=== PATIENT | male | born 1950 | race Caucasian/White ===

== ENCOUNTER 2020-10-28 10:11 | Emergency (ER) | payer MEDICARE, SELFPAY ==
--- NOTE | ~2020-10-28 | CT_ITS ---
EXAMINATION: CT CERVICAL SPINE WITHOUT CONTRAST CLINICAL INFORMATION: Fall COMPARISON: MRI of February 22, 2008 TECHNIQUE: CT cervical spine with coronal and sagittal reconstructions This CT examination was performed using dose optimization techniques as appropriate, variously including the following: *Automated exposure control *Adjustment of mA and/or kV according to patient size (this includes techniques or standardized protocols for targeted exams where dose is matched to indication/reason for exam; i.e. extremities or head) *Use of iterative reconstruction technique DLP: 543.66 mGy-cm FINDINGS: No abnormal prevertebral soft tissue swelling is seen. No acute cervical spine fracture is noted. There is severe disc space narrowing seen C5-C7 with what may be some degree of fusion. Marginal spurring is present. There is also some disc space narrowing seen right laterally at the C3-C4 and C4-C5 levels There is bilateral facet arthropathy seen with spurring and sclerosis C2-C7 bilaterally. There is some bilateral neural foraminal encroachment seen anteriorly from spurring of the joints of [place] and posteriorly from facet degenerative change at the C5-C6 and C6-C7 levels bilaterally. Temporomandibular joints appear unremarkable. Pterygoid plates intact. CT/CT cervical spine wo con IMPRESSION: No acute cervical spine fracture. Significant cervical spondylosis as described.
--- NOTE | ~2020-10-28 | CT_ITS ---
EXAMINATION: CT HEAD WITHOUT CONTRAST CLINICAL INFORMATION: Weakness for a couple of days. COMPARISON: CT head 01/04/2019, 12/16/2012. Brain MRI of 07/21/2015. TECHNIQUE: Contiguous axial imaging was performed from the skull base to vertex without intravenous administration of contrast. This CT examination was performed using dose optimization techniques as appropriate, variously including the following: *Automated exposure control *Adjustment of mA and/or kV according to patient size (this includes techniques or standardized protocols for targeted exams where dose is matched to indication/reason for exam; i.e. extremities or head) *Use of iterative reconstruction technique DLP: 753.16 mGy-cm. FINDINGS: There is no evidence of acute intracranial hemorrhage or territorial infarction. No abnormal mass effect or midline shift is seen. [place] to white matter differentiation is well preserved. No extra-axial fluid collections are identified. There is mild to moderate global volume loss with proportionate dilatation of the ventricles and cortical sulci. Mild periventricular white matter patchy low-attenuation changes are noted, likely reflecting sequela of chronic microangiopathy. The osseous calvarium is intact. Calvarial soft tissues are grossly unremarkable. The visualized paranasal sinuses are well-aerated except for mild mucosal thickening in the frontal sinuses and left-sided maxillary sinus. Cerumen is noted in the bilateral external auditory canals, right greater than left. Mastoid air cells and middle ear cavities are well-aerated. Chronic deformity of the medial wall of the left orbit is redemonstrated. CT/CT head/brain wo con IMPRESSION: No acute intracranial abnormality, specifically there is no evidence of acute intracranial hemorrhage or acute territorial infarction. Mild white matter changes of chronic microangiopathy.
--- NOTE | ~2020-10-28 | XR_ITS ---
EXAMINATION: XR CHEST CLINICAL INFORMATION: Question pneumonia. Weakness COMPARISON: January 04, 2019 TECHNIQUE: AP portable view of the chest was obtained. FINDINGS: There is a patchy region of disease seen within the lower left chest. This also question of patchy density within the mid left chest peripherally. No pneumothorax or pleural effusion. Heart normal size. No evidence of pulmonary edema. XR/XR chest 1V IMPRESSION: Small focus of density left lower lung which may be related to atelectasis or pneumonitis.
--- NOTE | 2020-10-28 10:22 | ECG_ITS ---
Test Reason : FALL Blood Pressure : / mmHG Vent. Rate : 077 BPM Atrial Rate : 077 BPM P-R Int : 144 ms QRS Dur : 096 ms QT Int : 396 ms P-R-T Axes : 079 043 120 degrees QTc Int : 448 ms Normal sinus rhythm Possible Left atrial enlargement Nonspecific ST and T wave abnormality Abnormal ECG When compared with ECG of 04-JAN-2019 16:48, No significant change was found Referred By: Jason Vallejo Electronically Signed By:SERVANDO FLORES MD
[2020-10-28 10:24] VITALS: BP 126/51; BP 160/74; PULSE 80; PULSE 81; RESP 18; TEMP 36.7; O2SAT 95; BMI 29.4
--- NOTE | 2020-10-28 10:29 | PC.NURSE ---
PT INCONTINENT OF LARGE AMT OF STOOL
--- NOTE | 2020-10-28 10:35 | ED_ITS ---
HPI - Fall General Chief Complaint: Fall Stated Complaint: weakness/fall Time Seen by Provider: 10/28/20 10:46 Source: patient Mode of arrival: ambulatory Limitations: no limitations History of Present Illness HPI Narrative: Patient presents to ED for fall. Patient states this morning he rolled out of bed and fell onto the ground. Patient states he rolled the bed by accident. States no physical complaints. Denies any loss of consciousness. Patient denies any headache, neck pain, chest pain, shortness of breath, abdominal pain, hip pain, leg pain, back pain, rectal bleeding, vomiting blood. As per EMS wanted patient to be evaluated due to patient feeling fatigue the past 4 days. History of history of [place] and 2 strokes. Related Data Previous Rx's Medication Instructions Recorded amoxicillin-pot clavulanate 1 tab PO Q12H 7 Days #14 tab 10/28/20 [Augmentin] azithromycin See Rx Instructions .ROUTE 10/28/20 .COMPLEX #6 tab Allergies Allergy/AdvReac Type Severity Reaction Status Date / Time No Known Allergies Allergy Verified 10/28/20 10:23 [No Known Allergies*] Review of Systems Review of Systems: Yes all other systems are reviewed and are negative Constitutional: Constitutional: Reports as per HPI, Reports no additional constitutional complaints and Reports fatigue Eyes: Eyes: Reports as per HPI and Reports no additional eye complaints ENT: Reports system reviewed and no additional complaints, except as documented and Reports as per HPI Cardiovascular: Cardiovascular: Reports as per HPI, Reports no additional cardiovascular complaints, Denies chest pain, Denies dyspnea and Denies dyspnea on exertion Respiratory: Respiratory: Reports no additional respiratory complaints, Denies cough, Denies dyspnea and Denies dyspnea on exertion Gastrointestinal: Gastrointestinal: Reports as per HPI, Reports no additional gastrointestinal complaints, Denies abdominal pain, Denies melena, Denies bloating, Denies hematochezia, Denies diarrhea, Denies nausea, Denies vomiting and Denies hematemesis Genitourinary: Genitourinary: Reports no additional male genitourinary complaints and Reports as per HPI Musculoskeletal: Musculoskeletal: Reports no additional musculoskeletal c omplaints and Reports as per HPI Neurologic: Reports system reviewed and no additional complaints, except as documented and Reports as per HPI Psychiatric: Psychiatric: Reports no additional psychiatric complaints and Reports as per HPI Endocrine: Endocrine: Reports fatigue [facility] Past Medical History Medical History (Updated 10/28/20 @ 16:00 by ROMIE Hankins) CVA (cerebral vascular accident) Dementia HTN (hypertension) Hyperlipidemia Myocardial infarct, old NIDDY (non-insulin dependent diabetes mellitus in young) Social History Social History Alcohol intake: never Smoked in Last 30 Days: No Use of substances other than those prescribed or required for medical reasons: No Advance Directives: No Advance Directives Information Provided: No Physical Exam Vital Signs: Vital Signs: Last Vital Signs Temp 98.1 F 10/28/20 15:26 Pulse 78 10/28/20 15:26 Resp 18 10/28/20 15: BP 167/77 H 10/28/20 15: Pulse Ox 96 10/28/20 15: Body Mass Index 29.4 Const: General: cooperative, healthy appearing, comfortable, no acute distress, well developed, alert, awake and Physically active Orientation/consciousness: patient oriented x3 HENMT: Head: Yes normal to inspection, Yes No palpable skull fracture present, Yes normocephalic, Yes atraumatic and No abrasion Ears: hearing grossly normal bilaterally, external ears normal and TM's normal bilaterally Eyes: General: appearance normal, both eyes and all related structures Neck: Neck: Yes normal visual inspection, Yes full ROM, Yes no lymphadenopathy, Yes no meningeal signs, Yes trachea midline, Yes supple and No tender Chest: Chest palpation & inspection: normal inspection of the chest and normal palpation of entire chest wall Resp: Effort & Inspection: normal respiratory effort and able to speak in complete sentences Auscultation: clear to auscultation bilaterally Cardio: Jugular venous distension: no JVD Heart sounds: S1 normal heart sound present and S2 normal heart sound present GI: Inspection: Yes normal to inspection and No abdominal wall ecchymosis Palpation (GI): Soft to palpation, not firm, nontender, no guarding and not rigid : General: No CVA tenderness and Yes no CVA tenderness Back/Spine/Pelvis: Back: no CVA tenderness, No CVA tenderness and No back te nderness Skin: General skin exam: no rashes or lesions noted and elasticity normal Neuro: Other: Negative for slurred speech. Negative for facial droop. Negative pronator drift. All extremities equal strength 5+. Patient is at baseline mentally. Negative for any neuro deficits. General: patient oriented x3, no meningeal signs and CN's II-XI intact bilaterally Extrem: General: Yes normal to inspection and Yes full ROM Psych: Appearance: grossly normal, well kempt and not disheveled Course Course Course Narrative: Patient presently does not have any physical complaints, but due to being concern for fatigue patient will have medical evaluation to make sure there was no [place], or signs of infection just like pneumonia or UA. Negative for any neuro deficit. Will send patient for head CT C-spine due to fall. Patient given fluids Reevaluation(s) Reevaluation #1: Patient denies any distress. Patient is at baseline mentally. Chest x-ray shows lower lobe pneumonia. Presently no indication for admission. Curb Score 0. Labs are baseline. EKG negative for STEMI. Head CT and cervical spine negative for brain bleed or neck fracture. Troponin 20. Repeat troponin make sure there was not cardiac event. Reevaluation #2: Patient's troponin did not increased by 50%. Patient is safe for discharge. No need for admission. MDM - Fall MDM Narrative Medical decision making narrative: Pneumonia. Lab Data Result diagrams: 10/28/20 11:05 10/28/20 11:05 Labs: Lab Results 10/28/20 10/28/20 10/28/20 Range/Units 11:05 11:05 11:05 WBC 10.0 (4.8-10.8) X10*3/uL RBC 4.45 L (4.60-5.80) X10*6/uL Hgb 12.9 L (14.0-18.0) g/dl Hct 38.1 L (42-52) % MCV 85.6 (80-98) fL MCH 29.0 (27.0-33.0) pg MCHC 33.9 (31.0-36.0) g/dl RDW 15.7 (11.0-16.0) % Plt Count 118 L (160-400) X10*3/uL MPV 11.0 (9.4-12.4) fL Immature Gran % (Auto) 0.6 H (0.0-0.4) % Neut % (Auto) 87.0 H (45-73) % Lymph % (Auto) 5.5 L (20-40) % [place] % (Auto) 5.1 (2-11) % Eos % (Auto) 1.5 (0-4) % Baso % (Auto) 0.3 (0-2) % Lymph # (Auto) 0.6 L (1.2-4.9) X10*3/uL [place] # (Auto) 0.5 (0.1-1.2) X10*3/uL Eos # (Auto) 0.2 (0.0-0.4) X10*3/uL Baso # (Auto) 0.0 (0.0-0.2) X10*3/uL Abs Immat Gran (auto) 0.06 H (0.00-0.03) X10*3/uL Absolute Neuts (auto) 8.7 H (2.0-8.3) X10*3/uL Absolute Nucleated RBC 0.000 (0.0-0.012) X10*3/uL Nucleated RBC % (auto) 0.0 (0.0-0.2) /100WBC Smear Tech's Comments VERIFIED PT (10.8-13.0) SEC INR (0.9-1.1) APTT (24.1-38.0) SEC Sodium 138 (135-145) mmol/L Potassium 4.0 (3.3-5.1) mmol/L Chloride 101 (96-108) mmol/L Carbon Dioxide 29 (22-29) mmol/L Anion Gap 12 (12-20) BUN 12 (9-16) mg/dL Creatinine 0.72 (0.5-1.4) mg/dL Estim Creat Clear Calc 109.3 Estimated GFR > 60 Random Glucose 118 H (60-115) mg/dL Calcium 9.1 (8.4-10.2) mg/dL Magnesium 1.7 (1.6-2.6) mg/dL Total Bilirubin 1.3 H (0.0-1.0) mg/dL AST 13 (5-37) U/L ALT 9 (0-40) U/L Alkaline Phosphatase 91 (39-117) U/L Total Creatine Kinase 87 (38-174) U/L Troponin I High Sens 20.2 (<3.5-35.0) ng/L Total Protein 6.1 L (6.5-8.0) g/dL Albumin 3.8 (3.5-5.0) g/dL Urine Color Urine Appearance Urine pH (5.0-8.0) Ur Specific [place] (1.005-1.025) Urine Protein (NEG-TRACE) MG/DL Urine Glucose (UA) (NEG) MG/DL Urine Ketones (NEG) MG/DL Urine Blood (NEG) Urine Nitrite (NEG) Ur Leukocyte Esterase (NEG) COVID-19 (RICA) (Negative) COVID-19 Clin Com 10/28/20 10/28/20 10/28/20 Range/Units 11:05 11:53 13:55 WBC (4.8-10.8) X10*3/uL RBC (4.60-5.80) X10*6/uL Hgb (14.0-18.0) g/dl Hct (42-52) % MCV (80-98) fL MCH (27.0-33.0) pg MCHC (31.0-36.0) g/dl RDW (11.0-16.0) % Plt Count (160-400) X10*3/uL MPV (9.4-12.4) fL Immature Gran % (Auto) (0.0-0.4) % Neut % (Auto) (45-73) % Lymph % (Auto) (20-40) % [place] % (Auto) (2-11) % Eos % (Auto) (0-4) % Baso % (Auto) (0-2) % Lymph # (Auto) (1.2-4.9) X10*3/uL [place] # (Auto) (0.1-1.2) X10*3/uL Eos # (Auto) (0.0-0.4) X10*3/uL Baso # (Auto) (0.0-0.2) X10*3/uL Abs Immat Gran (auto) (0.00-0.03) X10*3/uL Absolute Neuts (auto) (2.0-8.3) X10*3/uL Absolute Nucleated RBC (0.0-0.012) X10*3/uL Nucleated RBC % (auto) (0.0-0.2) /100WBC Smear Tech's Comments PT 13.4 H (10.8-13.0) SEC INR 1.1 (0.9-1.1) APTT 34.0 (24.1-38.0) SEC Sodium (135-145) mmol/L Potassium (3.3-5.1) mmol/L Chloride (96-108) mmol/L Carbon Dioxide (22-29) mmol/L Anion Gap (12-20) BUN (9-16) mg/dL Creatinine (0.5-1.4) mg/dL Estim Creat Clear Calc Estimated GFR Random Glucose (60-115) mg/dL Calcium (8.4-10.2) mg/dL Magnesium (1.6-2.6) mg/dL Total Bilirubin (0.0-1.0) mg/dL AST (5-37) U/L ALT (0-40) U/L Alkaline Phosphatase (39-117) U/L Total Creatine Kinase (38-174) U/L Troponin I High Sens (<3.5-35.0) ng/L Total Protein (6.5-8.0) g/dL Albumin (3.5-5.0) g/dL Urine Color DARK YELLOW Urine Appearance CLEAR Urine pH 6.0 (5.0-8.0) Ur Specific [place] 1.020 (1.005-1.025) Urine Protein NEG (NEG-TRACE) MG/DL Urine Glucose (UA) NEG (NEG) MG/DL Urine Ketones 5 (NEG) MG/DL Urine Blood NEG (NEG) Urine Nitrite NEG (NEG) Ur Leukocyte Esterase NEG (NEG) COVID-19 (RICA) Negative (Negative) COVID-19 Clin Com See Note 10/28/20 Range/Units 14:06 WBC (4.8-10.8) X10*3/uL RBC (4.60-5.80) X10*6/uL Hgb (14.0-18.0) g/dl Hct (42-52) % MCV (80-98) fL MCH (27.0-33.0) pg MCHC (31.0-36.0) g/dl RDW (11.0-16.0) % Plt Count (160-400) X10*3/uL MPV (9.4-12.4) fL Immature Gran % (Auto) (0.0-0.4) % Neut % (Auto) (45-73) % Lymph % (Auto) (20-40) % [place] % (Auto) (2-11) % Eos % (Auto) (0-4) % Baso % (Auto) (0-2) % Lymph # (Auto) (1.2-4.9) X10*3/uL [place] # (Auto) (0.1-1.2) X10*3/uL Eos # (Auto) (0.0-0.4) X10*3/uL Baso # (Auto) (0.0-0.2) X10*3/uL Abs Immat Gran (auto) (0.00-0.03) X10*3/uL Absolute Neuts (auto) (2.0-8.3) X10*3/uL Absolute Nucleated RBC (0.0-0.012) X10*3/uL Nucleated RBC % (auto) (0.0-0.2) /100WBC Smear Tech's Comments PT (10.8-13.0) SEC INR (0.9-1.1) APTT (24.1-38.0) SEC Sodium (135-145) mmol/L Potassium (3.3-5.1) mmol/L Chloride (96-108) mmol/L Carbon Dioxide (22-29) mmol/L Anion Gap (12-20) BUN (9-16) mg/dL Creatinine (0.5-1.4) mg/dL Estim Creat Clear Calc Estimated GFR Random Glucose (60-115) mg/dL Calcium (8.4-10.2) mg/dL Magnesium (1.6-2.6) mg/dL Total Bilirubin (0.0-1.0) mg/dL AST (5-37) U/L ALT (0-40) U/L Alkaline Phosphatase (39-117) U/L Total Creatine Kinase (38-174) U/L Troponin I High Sens 16.4 (<3.5-35.0) ng/L Total Protein (6.5-8.0) g/dL Albumin (3.5-5.0) g/dL Urine Color Urine Appearance Urine pH (5.0-8.0) Ur Specific [place] (1.005-1.025) Urine Protein (NEG-TRACE) MG/DL Urine Glucose (UA) (NEG) MG/DL Urine Ketones (NEG) MG/DL Urine Blood (NEG) Urine Nitrite (NEG) Ur Leukocyte Esterase (NEG) COVID-19 (RICA) (Negative) COVID-19 Clin Com ECG Data Interpretation: Normal sinus rhythm. Negative STEMI. Ventricular rate 77. Peer interval 144. QRS 96. QTC 448. Discharge Plan Discharge Clinical Impression: Pneumonia Patient Disposition: Home, Self-Care Instructions: Bacterial Pneumonia (ED) Additional Instructions: Return to the ED for any altered mental status, chest pain, shortness of breath, coughing up blood, weakness, intractable fever, chills, or any other concerning symptoms. Neural get EKG came back negative for heart attack. Urine negative f or infection. Rest your labs came back to baseline. Normal kidney function. Chest x-ray shows pneumonia. Prescriptions: New amoxicillin-pot clavulanate [Augmentin] 875-125 mg tablet 1 tab PO Q12H 7 Days Qty: 14 RF: 0 azithromycin 500 mg tablet See Rx Instructions .ROUTE .COMPLEX Qty: 6 RF: 0 Referrals: Jp Chan MD [Primary Care Provider] - 2 days (pneumonia?)
[2020-10-28] MEDS: 0.9 % Sodium Chloride 1,000 ML 999 ML IV (11:07)
[2020-10-28 11:23] LABS: Basophils Percent Auto 0.3 % (0-2); Eosinophils Absolute Auto 0.2 X10*3/uL (0.0-0.4); Eosinophils Percent Auto 1.5 % (0-4); Hematocrit 38.1 % (42-52); Hemoglobin 12.9 g/dl (14.0-18.0); Imm Gran Abs Auto 0.06 X10*3/uL (0.00-0.03); Imm Gran Pct Auto 0.6 % (0.0-0.4); Lymphocytes Absolute Auto 0.6 X10*3/uL (1.2-4.9); Lymphocytes Percent Auto 5.5 % (20-40); MANUAL DIFF FLAG SCAN; Mean Corpuscular HGB Conc 33.9 g/dl (31.0-36.0); Mean Corpuscular Volume 85.6 fL (80-98); Monocytes Absolute Auto 0.5 X10*3/uL (0.1-1.2); Monocytes Percent Auto 5.1 % (2-11); Neutrophils Absolute Auto 8.7 X10*3/uL (2.0-8.3); Platelet Count 118 X10*3/uL (160-400); Red Blood Count 4.45 X10*6/uL (4.60-5.80); Red Cell Distribution Width 15.7 % (11.0-16.0); SCAN SMEAR FLAG 1
--- NOTE | 2020-10-28 11:32 | PC.NURSE ---
patient a&o to baseline, iv inserted, labs drawn, ekg performed, cardic monitor applied nsr 70s, will continue to monitor.
[2020-10-28 11:33] LABS: COVID-19 Test Negative (Negative)
[2020-10-28 11:39] LABS: SLIDE REVIEW VERIFIED
[2020-10-28 11:43] LABS: Alanine Aminotransferase 9 U/L (0-40); Albumin Level 3.8 g/dL (3.5-5.0); Alkaline Phosphatase 91 U/L (39-117); Anion Gap 12 (12-20); Aspartate Amino Transferase 13 U/L (5-37); Bilirubin Total 1.3 mg/dL (0.0-1.0); Blood Urea Nitrogen 12 mg/dL (9-16); Calcium 9.1 mg/dL (8.4-10.2); Carbon Dioxide 29 mmol/L (22-29); Chloride 101 mmol/L (96-108); Creatinine Clr Calc Pharmacy 109.3; Estimated Glomerular Filt Rate > 60; Glucose Random 118 mg/dL (60-115); Magnesium 1.7 mg/dL (1.6-2.6); Sodium 138 mmol/L (135-145); Total Protein 6.1 g/dL (6.5-8.0)
[2020-10-28 11:44] LABS: Troponin-I High Sensitivity 20.2 ng/L (<3.5-35.0)
[2020-10-28 12:08] LABS: INTERNATIONAL NORM RATIO 1.1 (0.9-1.1); Prothrombin Time 13.4 SEC (10.8-13.0)
[2020-10-28 13:06] VITALS: BP 155/71; PULSE 73; RESP 24; TEMP 36.7; O2SAT 96
--- NOTE | 2020-10-28 13:50 | PC.NURSE ---
patients IVF continue to run slowly- pt educated to leave arm straight to infuse fluids quicker, tech to perform straight cath for urine
[2020-10-28 14:06] LABS: Appearance Urine CLEAR; Color Urine DARK YELLOW; Glucose Urine UA NEG (NEG); Leukocyte Esterase Urine NEG (NEG); Nitrite Urine NEG (NEG); Urine Blood NEG (NEG); Urine Ketones 5 MG/DL (NEG); Urine Protein NEG (NEG-TRACE)
[2020-10-28 14:42] LABS: Troponin-I High Sensitivity 16.4 ng/L (<3.5-35.0)
[2020-10-28 15:26] VITALS: BP 167/77; PULSE 78; RESP 18; TEMP 36.7; O2SAT 96
--- NOTE | 2020-10-28 15:27 | PC.NURSE ---
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
--- NOTE | 2020-10-28 16:31 | PC.NURSE ---
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
[2020-10-28] MEDS: Azithromycin 500 MG TABLET PO (17:07)
[2020-10-28] MEDS: Amoxicillin/Potassium Clav 875 MG TABLET PO (17:07)
== END 2020-10-28 17:10 | disposition home or self-care (01) ==
PROVIDERS: Physician Assistant; Emergency Provider Emergency Medicine; PCP Internal Medicine
DX: J18.9 Pneumonia, unspecified organism (principal); Z20.822 Contact with and (suspected) exposure to COVID-19; R53.1 Weakness; I10 Essential (primary) hypertension; E11.9 Type 2 diabetes mellitus without complications; E78.5 Hyperlipidemia, unspecified; I25.2 Old myocardial infarction; Z86.73 Personal history of transient ischemic attack (TIA), and cerebral infarction without residual deficits
CPT/HCPCS: 36415; 51701; 70450; 71045; 72125; 80053; 81003; 82550; 83735; 84484; 85025; 85610; 85730; 87635; 93005; 96360; 99284

== ENCOUNTER 2020-11-05 11:05 | Outpatient (REF) | payer MEDICARE, SELFPAY ==
--- NOTE | ~2020-11-05 | XR_ITS ---
EXAMINATION: XR CHEST CLINICAL INFORMATION: Pneumonia COMPARISON: Previous chest x-ray October 2020 TECHNIQUE: 2 views of the chest were obtained. FINDINGS: The cardiac and mediastinal contours are normal. The lungs are clear without evidence of pneumonia. There is no pleural effusion or pneumothorax. There are mild degenerative changes of the spine. XR/XR chest 2V IMPRESSION: No evidence of pneumonia.
== END 2020-11-05 11:06 | disposition home or self-care (01) ==
LOC: HO.XRAY 11:05
PROVIDERS: PCP Internal Medicine; Visit Provider Internal Medicine
DX: J18.9 Pneumonia, unspecified organism (principal)
CPT/HCPCS: 71046

== ENCOUNTER 2020-11-27 02:51 | Inpatient (IN) | payer MEDICARE, SELFPAY ==
[2020-11-27] VITALS (19 sets, daily range): BP systolic 114–176; BP diastolic 51–87; PULSE 76–111; RESP 14–40; TEMP 34.4–40.2; O2SAT 96–99; BMI 31.3; BMI 32.0
--- NOTE | ~2020-11-27 | XR_ITS ---
EXAMINATION: XR CHEST CLINICAL INFORMATION: Fever COMPARISON: 11/05/2020 TECHNIQUE: Frontal view of the chest was obtained. FINDINGS: Cardiac leads overlie the chest. The lungs are well expanded. There is no edema or effusion. Retrocardiac opacity noted.. No pneumothorax. The cardiomediastinal silhouette is within normal limits. No acute osseous abnormality. XR/XR chest 1V IMPRESSION: Retrocardiac opacity could represent atelectasis or pneumonia.
--- NOTE | ~2020-11-27 | CT_ITS ---
EXAMINATION: CT CHEST WITHOUT CONTRAST CLINICAL INFORMATION: Shortness of breath. Cough. COMPARISON: Radiograph from 11/05/2020. CT 12/20/2014 TECHNIQUE: Multidetector volumetric CT imaging of the chest was done. Axial MIP volume rendering provided. Sagittal and coronal reformatted images were obtained. This CT examination was performed using dose optimization techniques as appropriate, variously including the following: *Automated exposure control *Adjustment of mA and/or kV according to patient size (this includes techniques or standardized protocols for targeted exams where dose is matched to indication/reason for exam; i.e. extremities or head) *Use of iterative reconstruction technique DLP: 551 mGy-cm FINDINGS: LUNGS: The central airways are patent. Motion on the study limits evaluation of the lung parenchyma. There is no consolidation. No pulmonary mass. No definite nodules identified. No pneumothorax. MEDIASTINUM: Normal heart size. Coronary artery calcifications are present. No pericardial effusion. No mediastinal lymphadenopathy. PLEURA: There is no pleural effusion. No pleural mass or thickening. AXILLA: No lymphadenopathy. UPPER ABDOMEN: Surgical clips noted along the gallbladder. No acute abnormality in the visualized upper abdomen. OSSEOUS STRUCTURES: No acute or suspicious osseous abnormality. Degenerative changes noted in the spine. Degenerative changes of both glenohumeral joints. CT/CT chest wo con IMPRESSION: No acute pulmonary finding. No consolidation.
--- NOTE | ~2020-11-27 | CT_ITS ---
EXAMINATION: CT HEAD WITHOUT CONTRAST CLINICAL INFORMATION: Stroke protocol COMPARISON: 10/28/2020 TECHNIQUE: Contiguous axial imaging was performed from the skull base to vertex without intravenous contrast. This CT examination was performed using dose optimization techniques as appropriate, variously including the following: * Automated exposure control * Adjustment of mA and/or kV according to patient size (this includes techniques or standardized protocols for targeted exams where dose is matched to indication/reason for exam; i.e. extremities or head) Use of iterative reconstruction technique DLP: 885 mGy-cm. FINDINGS: There is no evidence of acute intracranial hemorrhage or territorial infarction. No abnormal mass effect or midline shift is seen. [place] to white matter differentiation is well preserved. No extra-axial fluid collections are identified. No hydrocephalus. Proportional prominence of the ventricles and sulcal spaces is consistent with mild volume loss. Patchy periventricular and deep white matter hypoattenuation is consistent with mild small vessel ischemic changes. No acute osseous or soft tissue abnormality. Chronic depression of the left lamina papyracea. Mild mucoperiosteal thickening of the maxillary sinuses. The mastoid air cells and visualized portions of the paranasal sinuses are otherwise well aerated. CT/CT head for stroke IMPRESSION: No acute intracranial pathology. This critical result was discussed with Ban Serrato MD by telephone at 11/27/2020 3:00 AM and it was ascertained that the content and urgency of the report was understood at the time of direct communication.
--- NOTE | 2020-11-27 02:52 | ECG_ITS ---
Test Reason : STROKE R/O Blood Pressure : / mmHG Vent. Rate : 098 BPM Atrial Rate : 098 BPM P-R Int : 134 ms QRS Dur : 098 ms QT Int : 338 ms P-R-T Axes : 077 034 081 degrees QTc Int : 431 ms Normal sinus rhythm Nonspecific ST and T wave abnormality Abnormal ECG When compared with ECG of 28-OCT-2020 10:46, T wave inversion no longer evident in Lateral leads Referred By: Ban Serrato Electronically Signed By:RAJWINDER STEWART
--- NOTE | 2020-11-27 03:00 | ED_ITS ---
HPI - Neuro Symptoms/Deficit General Chief Complaint: Altered Mental Status Stated Complaint: stroke ALERT Time Seen by Provider: 11/27/20 02:52 Source: patient Mode of arrival: EMS History of Present Illness HPI Narrative: 70-year-old male who is brought in by EMS as a stroke alert, unknown last well, on further clarification from the patient ?does this about once a month?. Patient denies any pain currently but states he is short of breath when asked. Related Data Home Medications Medication Instructions Recorded Confirmed atorvastatin 1 tab PO DAILY 11/27/20 11/27/20 citalopram 1 tab PO DAILY 11/27/20 11/27/20 cyanocobalamin (vitamin B-12) 1 tab PO DAILY 11/27/20 11/27/20 [Vitamin B-12] divalproex 2 tab PO BEDTIME 11/27/20 11/27/20 gabapentin 1 cap PO QID 11/27/20 11/27/20 lisinopril 1 tab PO DAILY 11/27/20 11/27/20 lorazepam 1 tab PO TID 11/27/20 11/27/20 metformin 1 tab PO BID 11/27/20 11/27/20 metoprolol succinate 1 tab PO DAILY 11/27/20 11/27/20 omeprazole 1 cap PO DAILY 11/27/20 11/27/20 risperidone 1 tab PO BEDTIME 11/27/20 11/27/20 zolpidem 1 tab PO BEDTIME PRN 11/27/20 11/27/20 Allergies Allergy/AdvReac Type Severity Reaction Status Date / Time No Known Allergies Allergy Verified 10/28/20 10:23 [No Known Allergies*] Review of Systems Review of Systems: Pertinent positives and negatives as stated in HPI 10 point review of systems is otherwise negative. [facility] Past Medical History Source: nursing notes reviewed Medical History CVA (cerebral vascular accident) Dementia HTN (hypertension) Hyperlipidemia Myocardial infarct, old NIDDY (non-insulin dependent diabetes mellitus in young) Social History Social History Alcohol intake: unknown Smoking Status: Former smoker Use of substances other than those prescribed or required for medical reasons: Unknown Advance Directives: No Advance Directives Information Provided: No Physical Exam Vital Signs: Vital Signs: Last Vital Signs Temp 94.0 F L 11/27/20 02:52 Pulse 104 H 11/27/20 05:53 Resp 35 H 11/27/20 05:53 BP 138/60 11/27/20 05:53 Pulse Ox 96 11/27/20 05:53 Oxygen Flow Rate 2 11/27/20 02:52 Body Mass Index 31.3 VITAL SIGNS: Reviewed. GENERAL: Chronically ill, mild distress. HEAD: Normocephalic/atraumatic, EYES: PERRLA, EOMI intact without pain, no nystagmus EARS: Ext canals without abnormality NOSE: Nares patent bilateral OROPHARYNX: no oral lesions noted, posterior pharynx clear, dry mucosa NECK: Supple, no adenopathy LUNGS: Wheezing crackles noted to the right lower lobe with decrease lung sounds. SpO2<> CARDIOVASCULAR: Regular rate and rhythm without noted murmurs, no JVD or lower extremity edema. ABDOMEN: Soft, non-tender, non-distended with bowel sounds. NEUROLOGIC: Alert and oriented x 4. Please see NIH scale, BILATERAL LOWER EXTREMITY WEAKNESS Course Course Course Narrative: 70-YEAR-OLD MALE WITH HISTORY AND CLINICAL PRESENTATION MOST SUGGESTIVE OF POSSIBLE INFECTIOUS OR CARDIOPULMONARY ETIOLOGY AND LESS LIKELY TO BE STROKE. Review of all investigations most consistent with CHF exacerbation, the lactic acid elevated secondary to low-flow state, and although there is a noted elevation of the high sensitivity troponin there are no acute EKG changes and patient is asymptomatic for chest pain., a repeat troponin will be drawn at 6:45 a.m.. This case was discussed with inpatient hospitalist who is agreeable for admission. Reevaluation(s) Reevaluation #1: I discussed patient's noncontrast head CT with [facility] and was told that they CT head is negative for acute findings. Time: 03:00 Reevaluation #2: I discussed the case with Neurology, Dr. Chapman, who agrees that this is doubtful diagnosis of stroke and not a candidate for tPA at present . Time: 03:25 MDM - Neuro Symptoms/Deficit Lab Data Result diagrams: 11/27/20 03:43 11/27/20 03:43 Labs: Lab Results 11/27/20 11/27/20 11/27/20 Range/Units 02:58 03:43 03:43 WBC 3.7 L (4.8-10.8) X10*3/uL RBC 4.26 L (4.60-5.80) X10*6/uL Hgb 12.4 L (14.0-18.0) g/dl Hct 36.7 L (42-52) % MCV 86.2 (80-98) fL MCH 29.1 (27.0-33.0) pg MCHC 33.8 (31.0-36.0) g/dl RDW 16.2 H (11.0-16.0) % Plt Count 105 L (160-400) X10*3/uL MPV 12.8 H (9.4-12.4) fL Immature Gran % (Auto) 0.5 H (0.0-0.4) % Neut % (Auto) 85.4 H (45-73) % Lymph % (Auto) 5.4 L (20-40) % [place] % (Auto) 7.4 (2-11) % Eos % (Auto) 0.8 (0-4) % Baso % (Auto) 0.5 (0-2) % Lymph # (Auto) 0.2 L (1.2-4.9) X10*3/uL [place] # (Auto) 0.3 (0.1-1.2) X10*3/uL Eos # (Auto) 0.0 (0.0-0.4) X10*3/uL Baso # (Auto) 0.0 (0.0-0.2) X10*3/uL Abs Immat Gran (auto) 0.02 (0.00-0.03) X10*3/uL Absolute Neuts (auto) 3.1 (2.0-8.3) X10*3/uL Absolute Nucleated RBC 0.000 (0.0-0.012) X10*3/uL Nucleated RBC % (auto) 0.0 (0.0-0.2) /100WBC Smear Tech's Comments VERIFIED PT 13.4 H (10.8-13.0) SEC INR 1.1 (0.9-1.1) APTT 30.9 (24.1-38.0) SEC VBG pH VBG pCO2 VBG pO2 VBG HCO3 VBG O2 Saturation VBG Base Excess Sodium (135-145) mmol/L Potassium (3.3-5.1) mmol/L Chloride (96-108) mmol/L Carbon Dioxide (22-29) mmol/L Anion Gap (12-20) BUN (9-16) mg/dL Creatinine (0.5-1.4) mg/dL Estim Creat Clear Calc Estimated GFR POC Glucose 168 H (60-115) mg/dL Random Glucose (60-115) mg/dL Lactic Acid (0.5-2.0) mmol/L Calcium (8.4-10.2) mg/dL Total Creatine Kinase (38-174) U/L Troponin I High Sens (<3.5-35.0) ng/L B-Natriuretic Peptide (<100) pg/mL Urine Color Urine Appearance Urine pH (5.0-8.0) Ur Specific [place] (1.005-1.025) Urine Protein (NEG-TRACE) MG/DL Urine Glucose (UA) (NEG) MG/DL Urine Ketones (NEG) MG/DL Urine Blood (NEG) Urine Nitrite (NEG) Ur Leukocyte Esterase (NEG) COVID-19 (RICA) (Negative) COVID-19 Clin Com 11/27/20 11/27/20 11/27/20 Range/Units 03:43 03:43 03:43 WBC (4.8-10.8) X10*3/uL RBC (4.60-5.80) X10*6/uL Hgb (14.0-18.0) g/dl Hct (42-52) % MCV (80-98) fL MCH (27.0-33.0) pg MCHC (31.0-36.0) g/dl RDW (11.0-16.0) % Plt Count (160-400) X10*3/uL MPV (9.4-12.4) fL Immature Gran % (Auto) (0.0-0.4) % Neut % (Auto) (45-73) % Lymph % (Auto) (20-40) % [place] % (Auto) (2-11) % Eos % (Auto) (0-4) % Baso % (Auto) (0-2) % Lymph # (Auto) (1.2-4.9) X10*3/uL [place] # (Auto) (0.1-1.2) X10*3/uL Eos # (Auto) (0.0-0.4) X10*3/uL Baso # (Auto) (0.0-0.2) X10*3/uL Abs Immat Gran (auto) (0.00-0.03) X10*3/uL Absolute Neuts (auto) (2.0-8.3) X10*3/uL Absolute Nucleated RBC (0.0-0.012) X10*3/uL Nucleated RBC % (auto) (0.0-0.2) /100WBC Smear Tech's Comments PT (10.8-13.0) SEC INR (0.9-1.1) APTT (24.1-38.0) SEC VBG pH VBG pCO2 VBG pO2 VBG HCO3 VBG O2 Saturation VBG Base Excess Sodium 137 (135-145) mmol/L Potassium 4.4 (3.3-5.1) mmol/L Chloride 101 (96-108) mmol/L Carbon Dioxide 22 (22-29) mmol/L Anion Gap 18 (12-20) BUN 10 (9-16) mg/dL Creatinine 0.68 (0.5-1.4) mg/dL Estim Creat Clear Calc 112.0 Estimated GFR > 60 POC Glucose (60-115) mg/dL Random Glucose 181 H D (60-115) mg/dL Lactic Acid 2.9 H* (0.5-2.0) mmol/L Calcium 8.5 D (8.4-10.2) mg/dL Total Creatine Kinase 151 D (38-174) U/L Troponin I High Sens 38.0 H* (<3.5-35.0) ng/L B-Natriuretic Peptide 279 H (<100) pg/mL Urine Color Urine Appearance Urine pH (5.0-8.0) Ur Specific [place] (1.005-1.025) Urine Protein (NEG-TRACE) MG/DL Urine Glucose (UA) (NEG) MG/DL Urine Ketones (NEG) MG/DL Urine Blood (NEG) Urine Nitrite (NEG) Ur Leukocyte Esterase (NEG) COVID-19 (RICA) (Negative) COVID-19 Clin Com 11/27/20 11/27/20 11/27/20 Range/Units 03:43 03:50 03:56 WBC (4.8-10.8) X10*3/uL RBC (4.60-5.80) X10*6/uL Hgb (14.0-18.0) g/dl Hct (42-52) % MCV (80-98) fL MCH (27.0-33.0) pg MCHC (31.0-36.0) g/dl RDW (11.0-16.0) % Plt Count (160-400) X10*3/uL MPV (9.4-12.4) fL Immature Gran % (Auto) (0.0-0.4) % Neut % (Auto) (45-73) % Lymph % (Auto) (20-40) % [place] % (Auto) (2-11) % Eos % (Auto) (0-4) % Baso % (Auto) (0-2) % Lymph # (Auto) (1.2-4.9) X10*3/uL [place] # (Auto) (0.1-1.2) X10*3/uL Eos # (Auto) (0.0-0.4) X10*3/uL Baso # (Auto) (0.0-0.2) X10*3/uL Abs Immat Gran (auto) (0.00-0.03) X10*3/uL Absolute Neuts (auto) (2.0-8.3) X10*3/uL Absolute Nucleated RBC (0.0-0.012) X10*3/uL Nucleated RBC % (auto) (0.0-0.2) /100WBC Smear Tech's Comments PT (10.8-13.0) SEC INR (0.9-1.1) APTT (24.1-38.0) SEC VBG pH Cancelled 7.41 VBG pCO2 Cancelled 44 VBG pO2 Cancelled 218 VBG HCO3 Cancelled 28 H VBG O2 Saturation Cancelled 99.0 VBG Base Excess Cancelled 3.8 Sodium (135-145) mmol/L Potassium (3.3-5.1) mmol/L Chloride (96-108) mmol/L Carbon Dioxide (22-29) mmol/L Anion Gap (12-20) BUN (9-16) mg/dL Creatinine (0.5-1.4) mg/dL Estim Creat Clear Calc Estimated GFR POC Glucose (60-115) mg/dL Random Glucose (60-115) mg/dL Lactic Acid (0.5-2.0) mmol/L Calcium (8.4-10.2) mg/dL Total Creatine Kinase (38-174) U/L Troponin I High Sens (<3.5-35.0) ng/L B-Natriuretic Peptide Cancelled (<100) pg/mL Urine Color Urine Appearance Urine pH (5.0-8.0) Ur Specific [place] (1.005-1.025) Urine Protein (NEG-TRACE) MG/DL Urine Glucose (UA) (NEG) MG/DL Urine Ketones (NEG) MG/DL Urine Blood (NEG) Urine Nitrite (NEG) Ur Leukocyte Esterase (NEG) COVID-19 (RICA) (Negative) COVID-19 Clin Com 11/27/20 11/27/20 Range/Units 04:09 04:11 WBC (4.8-10.8) X10*3/uL RBC (4.60-5.80) X10*6/uL Hgb (14.0-18.0) g/dl Hct (42-52) % MCV (80-98) fL MCH (27.0-33.0) pg MCHC (31.0-36.0) g/dl RDW (11.0-16.0) % Plt Count (160-400) X10*3/uL MPV (9.4-12.4) fL Immature Gran % (Auto) (0.0-0.4) % Neut % (Auto) (45-73) % Lymph % (Auto) (20-40) % [place] % (Auto) (2-11) % Eos % (Auto) (0-4) % Baso % (Auto) (0-2) % Lymph # (Auto) (1.2-4.9) X10*3/uL [place] # (Auto) (0.1-1.2) X10*3/uL Eos # (Auto) (0.0-0.4) X10*3/uL Baso # (Auto) (0.0-0.2) X10*3/uL Abs Immat Gran (auto) (0.00-0.03) X10*3/uL Absolute Neuts (auto) (2.0-8.3) X10*3/uL Absolute Nucleated RBC (0.0-0.012) X10*3/uL Nucleated RBC % (auto) (0.0-0.2) /100WBC Smear Tech's Comments PT (10.8-13.0) SEC INR (0.9-1.1) APTT (24.1-38.0) SEC VBG pH VBG pCO2 VBG pO2 VBG HCO3 VBG O2 Saturation VBG Base Excess Sodium (135-145) mmol/L Potassium (3.3-5.1) mmol/L Chloride (96-108) mmol/L Carbon Dioxide (22-29) mmol/L Anion Gap (12-20) BUN (9-16) mg/dL Creatinine (0.5-1.4) mg/dL Estim Creat Clear Calc Estimated GFR POC Glucose (60-115) mg/dL Random Glucose (60-115) mg/dL Lactic Acid (0.5-2.0) mmol/L Calcium (8.4-10.2) mg/dL Total Creatine Kinase (38-174) U/L Troponin I High Sens (<3.5-35.0) ng/L B-Natriuretic Peptide (<100) pg/mL Urine Color YELLOW Urine Appearance CLEAR Urine pH 6.5 (5.0-8.0) Ur Specific [place] 1.020 (1.005-1.025) Urine Protein NEG (NEG-TRACE) MG/DL Urine Glucose (UA) NEG (NEG) MG/DL Urine Ketones NEG (NEG) MG/DL Urine Blood NEG (NEG) Urine Nitrite NEG (NEG) Ur Leukocyte Esterase NEG (NEG) COVID-19 (RICA) Negative (Negative) COVID-19 Clin Com See Note ECG Data Attestation: I personally reviewed and interpreted this ECG as follows: Prior ECG tracings: available for review (10/28/2020 no acute changes on comparison) Interpretation: Normal sinus rhythm, HR -98, no evidence of acute ischemia, AK/QRS/QTC is within normal limits. NIH Stroke Scale Internal: Initial- Upon Arrival Level of Consciousness: Alert Level of Consciousness Questions: Answers both questions correctly Level of Consciousness Commands: Performs both tasks correctly Best Gaze: Normal Visual: No visual loss Facial Palsy: Normal Motor Arm (Right): No drift Motor Arm (Left): No drift Motor Leg (Right): Some effort against gravity Motor Leg (Left): Some effort against gravity Limb Ataxia: Absent Sensory: Normal Best Language: No aphasia Dysarthia: Normal Extinction and Inattention: No abnormality Score: 4 Discharge Plan Discharge Clinical Impression: CHF exacerbation Patient Disposition: Admitted As Inpatient
--- NOTE | 2020-11-27 03:31 | PC.NURSE ---
speaking with of patient, stating last known well was 830 to 9pm last night when the patient went to bed. getting up to use the bathroom and has having increased weakness than he normally is from previous stroke. Stating that patient has episodes similar to tonight and gets seen for them, last time was 1 month ago and patient has been following up with primary care. unsure about home medications but stating that there should be an up to date list in the computer, denies recent medication changes and states patient is good about taking medications and took them last night.
[2020-11-27 04:04] LABS: VBG Base Excess 3.8 mmol/L; VBG HCO3 28 mmol/L (22-26); VBG pCO2 44 mmHg; VBG pH 7.41 (7.32-7.43); VBG pO2 218 mmHg
[2020-11-27 04:04] LABS: Venous Blood Gas Refer to POC result
[2020-11-27 04:05] LABS: Eosinophils Percent Auto 0.8 % (0-4); MANUAL DIFF FLAG SCAN; PLT CLUMP 1; SCAN SMEAR FLAG 1
[2020-11-27 04:07] LABS: Basophils Percent Auto 0.5 % (0-2); Hematocrit 36.7 % (42-52); Hemoglobin 12.4 g/dl (14.0-18.0); Imm Gran Abs Auto 0.02 X10*3/uL (0.00-0.03); Imm Gran Pct Auto 0.5 % (0.0-0.4); Lymphocytes Absolute Auto 0.2 X10*3/uL (1.2-4.9); Lymphocytes Percent Auto 5.4 % (20-40); Mean Corpuscular HGB Conc 33.8 g/dl (31.0-36.0); Mean Corpuscular Hemoglobin 29.1 pg (27.0-33.0); Mean Corpuscular Volume 86.2 fL (80-98); Mean Platelet Volume 12.8 fL (9.4-12.4); Monocytes Absolute Auto 0.3 X10*3/uL (0.1-1.2); Monocytes Percent Auto 7.4 % (2-11); Neutrophils Absolute Auto 3.1 X10*3/uL (2.0-8.3); Neutrophils Percent Auto 85.4 % (45-73); Platelet Count 105 X10*3/uL (160-400); Red Blood Count 4.26 X10*6/uL (4.60-5.80); Red Cell Distribution Width 16.2 % (11.0-16.0); White Blood Count 3.7 X10*3/uL (4.8-10.8)
[2020-11-27 04:11] LABS: PLT ABN DIST 1
[2020-11-27 04:14] LABS: INTERNATIONAL NORM RATIO 1.1 (0.9-1.1); Prothrombin Time 13.4 SEC (10.8-13.0)
[2020-11-27 04:16] LABS: Partial Thromboplastin Time 30.9 SEC (24.1-38.0)
[2020-11-27 04:18] LABS: Glucose, Whole Blood 168 mg/dL (60-115)
[2020-11-27 04:20] LABS: Lactic Acid 2.9 mmol/L (0.5-2.0)
[2020-11-27 04:21] LABS: Anion Gap 18 (12-20); Blood Urea Nitrogen 10 mg/dL (9-16); Calcium 8.5 mg/dL (8.4-10.2); Carbon Dioxide 22 mmol/L (22-29); Chloride 101 mmol/L (96-108); Estimated Glomerular Filt Rate > 60; Glucose Random 181 mg/dL (60-115); Potassium 4.4 mmol/L (3.3-5.1); Sodium 137 mmol/L (135-145)
[2020-11-27 04:29] LABS: B Type Natriuretic Peptide 279 pg/mL (<100)
[2020-11-27 04:32] LABS: Glucose Urine UA NEG (NEG); Leukocyte Esterase Urine NEG (NEG); Nitrite Urine NEG (NEG); PH 6.5 (5.0-8.0); Urine Blood NEG (NEG); Urine Ketones NEG (NEG); Urine Protein NEG (NEG-TRACE)
[2020-11-27 04:33] LABS: Appearance Urine CLEAR; Color Urine YELLOW
[2020-11-27 04:47] LABS: COVID-19 Test Negative (Negative); IDNOW Serial# 9DD0AD1C
[2020-11-27 04:56] LABS: Stroke Lab Use COMPLETE
[2020-11-27] MEDS: Piperacillin Sodium/Tazobactam 3.375 GM in 0.9 % Sodium Chloride 50 ML IV (04:56)
--- NOTE | 2020-11-27 05:21 | PC.NURSE ---
Addendum entered by Rukhsana Thompson 11/27/20 05:25: Charge nurse speaking with tower supervisor about availability of ICU bed based on patient's imaging and presentation. Original Note: Patient has a very wet cough and diminished breath sounds bilaterally with crackles. Fluids ordered for sepsis protocol. This auto service writer spoke with MD regarding patient's lungs and wet cough and unsure if giving patient fluids might put him into fluid overload. MD agrees. The plan is to give patient lasix first and hold off on the fluids for the moment
[2020-11-27 05:24] LABS: SLIDE REVIEW VERIFIED
[2020-11-27] MEDS: Furosemide 40 MG/4 ML VIAL IVPUSH (05:26)
[2020-11-27 05:54] LABS: Reflex Lactate? Lactic Acid Added
[2020-11-27 06:52] LABS: ~Lactic Acid-LAB USE ONLY 2.1 mmol/L (0.5-2.0)
[2020-11-27 06:59] LABS: Troponin-I High Sensitivity 33.5 ng/L (<3.5-35.0)
[2020-11-27 08:24] LABS: Reflex Lactate? 2 Y
[2020-11-27] MEDS: Acetaminophen 325 MG TABLET 650 MG PO ×2 (08:41→17:51)
--- NOTE | 2020-11-27 08:43 | PC.NURSE ---
PT STATES HE IS NOT FEELING WELL. HE IS SHIVERING AND WAS FOUND TO BE FEBRILE, MEDICATED CHARTED. HE CONTINUES WITH LABORED RESPIRATIONS, TACHYPENIC AT 34
--- NOTE | 2020-11-27 09:27 | PC.NURSE ---
Dr. brooks aware patient is still febrile after tylenol
[2020-11-27] MEDS: Ibuprofen 600 MG TABLET PO (09:51)
[2020-11-27 10:04] LABS: ~Lactic Acid-LAB USE ONLY 2.5 mmol/L (0.5-2.0)
--- NOTE | 2020-11-27 11:25 | PC.NURSE ---
PT PLACED ON COOLING BLANKET
--- NOTE | 2020-11-27 14:10 | MHC.STROKE ---
0245 EMS PRE-NOTIFICATION STROKE ALERT ARRIVED 025. NIHSS = 4, BILATERAL LEG WEAKNESS, DIRECT TO CT, NO BLEED.
--- NOTE | 2020-11-27 14:52 | PC.NURSE ---
pt current temp 100.0 cooling blanket turned off
[2020-11-27 15:54] LABS: Adenovirus PCR Not Detected (Not Detect.); Bordetella parapertussis PCR Not Detected (Not Detect.); Bordetella pertussis PCR Not Detected (Not Detect.); Chlamydia pneumoniae PCR Not Detected (Not Detect.); Coronavirus 229E PCR Not Detected (Not Detect.); Coronavirus HKU1 PCR Not Detected (Not Detect.); Coronavirus NL63 PCR Not Detected (Not Detect.); Coronavirus OC43 PCR Not Detected (Not Detect.); Human metapneumovirus PCR Not Detected (Not Detect.); Influenza A PCR Not Detected (Not Detect.); Influenza B PCR Not Detected (Not Detect.); Mycoplasma pneumoniae PCR Not Detected (Not Detect.); Parainfluenza 1 PCR Not Detected (Not Detect.); Parainfluenza 2 PCR Not Detected (Not Detect.); Parainfluenza 3 PCR Not Detected (Not Detect.); Parainfluenza 4 PCR Not Detected (Not Detect.); RSV PCR Not Detected (Not Detect.); SARS-CoV-2 PCR Not Detected (Not Detect.)
--- NOTE | 2020-11-27 16:53 | PC.NURSE ---
PT MORE AWAKE AND APPROPRIATE CONVERSATION, COOLING BLANKET HAS BEEN OFF FOR >1HR WITH NO FEVER RETURN CURRENTLY TOLERATING PO FLUIDS.
[2020-11-27 17:44] LABS: Glucose, Whole Blood 99 mg/dL (60-115)
--- NOTE | 2020-11-27 17:54 | PC.NURSE ---
PT ATE A SANDWICH AND TOLERATING PO FLUIDS
[2020-11-27] MEDS: 0.9 % Sodium Chloride Flush 3 ML SYRINGE IVFLUSH ×2 (18:59→20:05)
--- NOTE | 2020-11-27 19:13 | HP_ITS ---
DATE OF SERVICE: 11/27/2020 CHIEF COMPLAINT: Confusion. HISTORY OF PRESENTING ILLNESS: This is a 70-year-old gentleman with past medical history significant for vascular dementia, status post CVA with no residual deficit, ambulates with the help of cane, history of hypertension, hyperlipidemia, presented to [facility]. Since he got up last night to use the bathroom and was unable to get up from the toilet, the was unable to assist him. As per , he was noted to be confused and shaking, so she called the ambulance and the patient was brought into [facility]. According to the patient, he does not remember how he came to the hospital, but was feeling cold and noted that he has been coughing a lot since last night. Otherwise, he was at his usual health up until last night. She denies any sick contacts. The patient denies any nausea, vomiting, abdominal pain, no diarrhea. He denies any lightheadedness or dizziness. The patient is due for his second COVID vaccine on December 05. Patient's workup in the emergency room revealed a normal head CAT scan. CT chest showed no acute abnormality. Urinalysis is unremarkable. Troponins are flat. BNP is 279. Initially, blood pressure was elevated at 176/84 and his temperature was low at 94 on arrival to the emergency room that bumped up to 102 and then subsequently 104.4. With no source of infection found in the emergency room, patient received 1 dose of IV Zosyn, IV fluid, IV Lasix, Tylenol, and Motrin. Currently afebrile. Awake, alert, able to answer questions appropriately. Denies any shakiness, chest pain, shortness of breath, any rashes. PAST MEDICAL HISTORY: Significant for, 1. Hypertension. 2. Hyperlipidemia. 3. History of coronary artery disease. 4. History of xtp-ppzcrhy-tacfxsvis diabetes mellitus. 5. History of CVA x2. 6. Vascular dementia. SOCIAL HISTORY: Lives at home with his . No history of smoking or alcohol use. Ambulates without assistive device except uses cane for going up and down the stairs. FAMILY HISTORY: There is no family history of premature coronary artery disease. He has 2 sisters with breast cancer. One sister with cervical cancer. One brother of lung cancer. ALLERGIES: HE HAS NO KNOWN DRUG ALLERGIES. MEDICATIONS: On admission atorvastatin 1 tablet daily, citalopram 1 tablet daily, vitamin B12 by mouth daily, Depakote 2 tablets at bedtime, gabapentin 1 capsule 300 mg q.i.d., lisinopril 1 tablet daily, lorazepam 1 tablet t.i.d., metformin 1 tablet b.i.d., metoprolol 1 tablet daily, omeprazole 1 capsule daily, risperidone 1 tablet at bedtime, and Ambien 1 tablet at bedtime as needed for insomnia. REVIEW OF SYSTEMS: PUBLIC INFORMATION RELATIONS MANAGER: No headache. No lightheadedness, or dizziness. CVS: No chest pain or palpitation. GI: No nausea, vomiting, or diarrhea. RESPIRATORY: Dry cough, congested. No shortness of breath. : No urinary symptoms of urgency or frequency. SKIN: No rashes. Rest of all other systems are reviewed and are negative. PHYSICAL EXAMINATION: GENERAL: The patient is resting comfortably. Does not appear to be in acute distress. VITAL SIGNS: His current vitals are BP 121/66, pulse of 76, respiratory rate 20, temp improved from 104.4 to 100 at this time, O2 saturation 99% on 3 L of nasal cannula. HEENT: Pupils equal, round, and reactive to light and accommodation. NECK: Supple. No JVD. LUNGS: Clear to auscultation bilaterally. HEART: Regular rate and rhythm. ABDOMEN: Soft, nontender. Bowel sounds are audible. EXTREMITIES: Without clubbing, cyanosis, or edema. NEURO: Speech is clear but slow. Face symmetrical. Moving all 4 extremities. LABORATORY DATA: Hematocrit 36.7, WBC 3.7. Sodium 137, potassium 4.4, chloride 101, bicarb 22, creatinine 0.68, blood sugar 168. Lactic acid elevated at around 2.5, calcium 8.5. Troponin 38, repeat troponin 33.5. BNP of 279. IMAGING STUDIES: CT head with no acute abnormality. CT chest showed no acute pulmonary findings. No consolidation. EKG showed no acute ischemic changes. ASSESSMENT AND PLAN: This is a 70-year-old gentleman with prior history of cerebrovascular accident with no residuals, history of vascular dementia, hypertension, coming from home due to shakiness, mild confusion, and difficulty getting up from the toilet. The patient's workup in the emergency room showed no acute abnormality other than high-grade fever with no source of infection. The patient will be admitted for close monitoring and treatment and evaluation. 1. Acute encephalopathy. The patient had transient confusion that is now resolved likely due to fever and chills. No source of infection found with normal UA and chest CT. has SIRS criteria with fever and tachycardia, Likely viral infection. COVID test is negative. Will obtain respiratory viral panel. Reassured the patient. He will be treated symptomatically with Tylenol cough medication. Hold off on antibiotics. Follow 2 sets of blood cultures. The patient is not in sepsis, 2. History of hypertension. will continue all home medications. 3. History of coronary artery disease. No evidence of acute coronary syndrome. Continue statin and metoprolol. 4. Diabetes mellitus. We will hold metformin. Follow blood sugars and use insulin sliding scale. 5. Deep vein thrombosis prophylaxis. will use compression stockings due to chronic thromocytopenia.. 6. Mild lactic acidosis due to fever and dehydration will monitor. 7. Code status. Discussed with the patient and at bedside. He wishes to be a full code. MD CRISTOBAL Blackwood/KAMLESH / [id number] MTDD
[2020-11-27] MEDS: Gabapentin 300 MG CAPSULE PO (20:05)
[2020-11-27] MEDS: LORazepam 0.5 MG TABLET PO (20:05)
[2020-11-27] MEDS: risperiDONE 0.25 MG TABLET PO (20:05)
[2020-11-27] MEDS: Divalproex Sodium ER 500 MG TAB.ER.24H 1000 MG PO (20:05)
[2020-11-27 20:45] LABS: Glucose, Whole Blood 126 mg/dL (60-115)
[2020-11-28] VITALS (15 sets, daily range): BP systolic 104–147; BP diastolic 49–65; PULSE 64–119; RESP 16–19; TEMP 36.1–39.6; O2SAT 92–100
[2020-11-28] MEDS: Albuterol/Iprat 2.5/0.5MG 3 ML AMPUL.NEB INHALE (02:18)
[2020-11-28] MEDS: Acetaminophen 325 MG TABLET 650 MG PO ×2 (02:58→08:15)
[2020-11-28 04:03] LABS: Glucose Urine UA NEG (NEG); Leukocyte Esterase Urine NEG (NEG); Nitrite Urine NEG (NEG); PH 6.5 (5.0-8.0); Urine Blood 2+ (NEG); Urine Ketones NEG (NEG); Urine Protein TRACE MG/DL (NEG-TRACE)
[2020-11-28 04:10] LABS: Appearance Urine HAZY; Color Urine YELLOW
[2020-11-28 04:11] LABS: RBC Urine 30-49 /HPF (0); Squamous Epithelial Cell Urine 1+ /LPF
[2020-11-28 04:12] LABS: Bacteria Urine 1+ /LPF; Granular Casts Urine 0-2 /LPF; Mucus Urine 1+ /LPF
--- NOTE | 2020-11-28 04:45 | PM.EVENT ---
Event Note Date of Service: 11/28/20 Event Note: Fever: Patient's chest x-ray showed question pneumonia. Will start the patient on ceftriaxone and doxycycline. Follow-up cultures
[2020-11-28 04:46] LABS: Anion Gap 15 (12-20); Blood Urea Nitrogen 16 mg/dL (9-16); Calcium 8.2 mg/dL (8.4-10.2); Carbon Dioxide 26 mmol/L (22-29); Chloride 95 mmol/L (96-108); Creatinine Clr Calc Pharmacy 111.6; Estimated Glomerular Filt Rate > 60; Glucose Random 198 mg/dL (60-115); Potassium 3.8 mmol/L (3.3-5.1); Sodium 132 mmol/L (135-145)
[2020-11-28] MEDS: cefTRIAXone sodium 1 GM in 0.9 % Sodium Chloride 50 ML IV (04:59)
[2020-11-28] MEDS: Doxycycline Hyclate 100 MG in 0.9 % Sodium Chloride 250 ML 166.67 MG IV ×2 (05:34→17:14)
[2020-11-28] MEDS: Omeprazole 20 MG CAPSULE.DR PO (05:35)
[2020-11-28 07:27] LABS: Glucose, Whole Blood 133 mg/dL (60-115)
[2020-11-28] MEDS: Metoprolol Succinate ER 50 MG TAB.ER.24H PO (07:57)
[2020-11-28] MEDS: 0.9 % Sodium Chloride Flush 3 ML SYRINGE IVFLUSH ×2 (07:57→17:26)
[2020-11-28] MEDS: lisinopriL 20 MG TABLET PO (08:01)
[2020-11-28] MEDS: Escitalopram Oxalate 10 MG TABLET PO (08:01)
[2020-11-28] MEDS: Cyanocobalamin (Vitamin B-12) 1,000 MCG TABLET 1000 MCG PO (08:01)
[2020-11-28] MEDS: LORazepam 0.5 MG TABLET PO ×3 (08:01→21:13)
[2020-11-28] MEDS: Gabapentin 300 MG CAPSULE PO ×3 (08:01→20:51)
[2020-11-28] MEDS: Atorvastatin Calcium 40 MG TABLET PO (08:11)
[2020-11-28] MEDS: Ibuprofen 400 MG TABLET PO (09:46)
[2020-11-28 11:27] LABS: Rhino/Enterovirus PCR Detected (Not Detect.)
[2020-11-28 11:31] LABS: Glucose, Whole Blood 383 mg/dL (60-115)
--- NOTE | 2020-11-28 11:42 | MHC.CM.PN ---
met with pt and spoke with pt had no servceis prior to admissionpts would like vna referral to [facility] pts will transport home
[2020-11-28] MEDS: Insulin Lispro 100 UNIT/ML 3 ML VIAL SUBCUT (13:22)
--- NOTE | 2020-11-28 14:08 | MHC.SL.SWA ---
Speech Pathologist Impression: Risk of Aspiration Oralpharyngeal Dysphagia Risk of Aspiration Due to: Neurological Condition Reduced Cognition Dysphasia Diet Status: Downgrade Liquid Consistency and Strategies for Safe Swallow: Liquid Intake Recommendation: Thin Liquid Intake Strategies: Small Sips No Straws Solid Food Consistency: Dietary Recommendations: Chopped/Advanced (NDD3) Additional Modifications to Solid Foods: Recommend food to be cut into small bite size pieces and moistened with sauce/gravy. Recommend minimize distractions during meals. Patient may need to be redirected. Oral Medication Intake: Whole with Puree Compensatory Strategies and Precautions to be Taken for Safe Swallow: Sitting Upright (90 deg) No Straw Liquids from Cup Liquids from Spoon Small Bites and Sips Alternate Liquids/Solids Rate of Ingestion Change Avoid Specific Foods Supervision While Eating and Drinking for Safe Swallow: Total Assistance Foods to Avoid: avoid tough/dry/sticky foods Recommend food to be cut into small bite size pieces and moistened with sauce/gravy. Recommend minimize distractions during meals. Patient may need to be redirected. Swallowing Recommended Treatments: Compens. Strategy Educat. Recommendation for Speech: Inpatient Speech Therapy Comment: PRODUCT MARKETING MANAGER to follow up x1 time to ensure tolerance. Falsework Builder Clinican/Clinical Fellow: No Supervisory Statement: I have reviewed and agree with the student/clinical fellow's documentation: N/A Speech Language Pathologist: Shayla Madrigal M.A., CCC-PRODUCT MARKETING MANAGER
--- NOTE | 2020-11-28 14:44 | HO.PM.IMPN ---
Subjective Subjective Date of Service: 11/28/20 Interval History: Patient continued to have intermittent high-grade fevers, a repeat chest x-ray early a.m. showed new retrocardiac opacity could represent pneumonia, at present patient offers no acute complaints has been coughing, denies shortness of breath denies chest congestion no sinus pressure no sore throat, denies urinary symptoms. 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 Neck supple no JVD. CVS regular rate rhythm, Respiratory lungs clear to auscultation, no respiratory distress, no wheeze, no rhonchi. Gastrointestinal abdomen soft, nontender, bowel sounds audible, no guarding , no rigidity. Extremities no clubbing cyanosis or edema. Neuro nonfocal patient moving all 4 extremity speech clear. Skin no rash Objective Data Current Medications Generic Name Dose Route Start Last Admin Trade Name Freq PRN Reason Stop Dose Admin Acetaminophen 650 mg 11/27/20 17:32 11/28/20 08:15 Acetaminophen 325 Mg Tablet PO 650 mg Q6H PRN Administration Pain, Mild (Pain Scale 1-3) Albuterol/Ipratropium 3 ml 11/28/20 02:05 11/28/20 02:18 Albuterol/Iprat 2.5/0.5mg 3 Ml Ampul.Neb INHALE 3 ml RQ4H PRN Administration Shortness of Breath/Wheezing Atorvastatin Calcium 40 mg 11/28/20 09:00 11/28/20 08:11 Atorvastatin Calcium 40 Mg Tablet PO 40 mg DAILY [facility] Administration Cyanocobalamin 1,000 mcg 11/28/20 09:00 11/28/20 08:01 Cyanocobalamin (Vitamin B-12) 1,000 Mcg Tablet PO 1,000 mcg DAILY [facility] Administration Divalproex Sodium 1,000 mg 11/27/20 21:00 11/27/20 20:05 Divalproex Sodium Er 500 Mg Tab.Er.24h PO 1,000 mg BEDTIME [facility] Administration Escitalopram Oxalate 10 mg 11/28/20 09:00 11/28/20 08:01 Escitalopram Oxalate 10 Mg Tablet PO 10 mg DAILY [facility] Administration Gabapentin 300 mg 11/27/20 21:00 11/28/20 08:01 Gabapentin 300 Mg Capsule PO 300 mg TID [facility] Administration Ceftriaxone Sodium 1 gm/ 50 mls @ 100 mls/hr 11/28/20 05:00 11/28/20 05:45 Sodium Chloride IV Infused Q24H [facility] Infusion Doxycycline Hyclate 100 mg/ 250 mls @ 166.67 mls/hr 11/28/20 06:00 11/28/20 08:12 Sodium Chloride IV Infused Q12H [facility] Infusion Insulin Human Lispro 0 unit 11/27/20 16:30 11/28/20 13:22 Insulin Lispro 100 Unit/Ml 3 Ml Vial SUBCUT 10 unit QIDACHS [facility] Administration Protocol Lisinopril 20 mg 11/28/20 09:00 11/28/20 08:01 Lisinopril 20 Mg Tablet PO 20 mg DAILY [facility] Administration Protocol Lorazepam 0.5 mg 11/27/20 21:00 11/28/20 08:01 Lorazepam 0.5 Mg Tablet PO 0.5 mg TID [facility] Administration Metoprolol Succinate 50 mg 11/28/20 09:00 11/28/20 07:57 Metoprolol Succinate Er 50 Mg Tab.Er.24h PO 50 mg DAILY [facility] Administration Protocol Omeprazole 20 mg 11/28/20 06:30 11/28/20 05:35 Omeprazole 20 Mg Capsule.Dr PO 20 mg DAILY@0630 [facility] Administration Ondansetron HCl 4 mg 11/27/20 17:32 Ondansetron Hcl 4 Mg/2 Ml Vial IVPUSH Q8H PRN Nausea and Vomiting Risperidone 0.25 mg 11/27/20 21:00 11/27/20 20:05 Risperidone 0.25 Mg Tablet PO 0.25 mg BEDTIME [facility] Administration Sodium Chloride 3 ml 11/27/20 17:32 11/28/20 07:57 0.9 % Sodium Chloride Flush 3 Ml Syringe IVFLUSH 3 ml QSHIFT [facility] Administration Zolpidem Tartrate 5 mg 11/27/20 17:32 Zolpidem Tartrate 5 Mg Tablet PO BEDTIME PRN insomnia Labs CBC & Chem 7: 11/27/20 03:43 11/28/20 04:09 Microbiology Microbiology Results: Microbiology 11/27/20 04:33 Blood - Venous Blood Culture - Preliminary No growth after 24 hours. 11/27/20 04:35 Blood - Venous Blood Culture - Preliminary No growth after 24 hours. Assessment and Plan (1) Acute encephalopathy: Status: Acute (2) Sepsis: Status: Acute (3) Pneumonia: Status: Acute Assessment and Plan: 70-year-old gentleman with prior history of cerebrovascular accident with no residuals, history of vascular dementia, hypertension, coming from home due to shakiness, mild confusion, and difficulty getting up from the toilet. The patient's workup in the emergency room showed no acute abnormality other than high-grade fever with no source of infection. The patient will be admitted for close monitoring and treatment and evaluation. 1. Acute encephalopathy. Resolved was likely due to fever and underlying infection 2. Sepsis due to pneumonia question UTI. Patient with recurrent high-grade fever and cough, urinalysis positive patient denies urinary symptoms, started on IV ceftriaxone and doxy this morning Since repeat chest x-ray showed retrocardiac opacity concerning for pneumonia, follow blood cultures and urine culture, no features of severe sepsis noted, mild lactic acidosis likely due to high-grade fever and dehydration. Continue supportive care with Tylenol/Motrin, await ID input 3. History of coronary artery disease. No evidence of acute coronary syndrome, Continue statin and metoprolol. 4. Diabetes mellitus. hold metformin. Follow blood sugars and insulin sliding scale. 5. Deep vein thrombosis prophylaxis. will use compression stockings due to chronic thromocytopenia.. 6. Hypertension soft blood pressure hold antihypertensives Code status. Discussed with the patient and at bedside. He wishes to be a full code.
[2020-11-28 15:59] LABS: Glucose, Whole Blood 134 mg/dL (60-115)
[2020-11-28 20:23] LABS: Glucose, Whole Blood 110 mg/dL (60-115)
[2020-11-28] MEDS: risperiDONE 0.25 MG TABLET PO (20:51)
[2020-11-28] MEDS: Divalproex Sodium ER 500 MG TAB.ER.24H 1000 MG PO (20:51)
[2020-11-29] VITALS (7 sets, daily range): BP systolic 125–146; BP diastolic 58–88; PULSE 72–84; RESP 18–20; TEMP 36.6–37.2; O2SAT 95–100
[2020-11-29] MEDS: Omeprazole 20 MG CAPSULE.DR PO (06:25)
[2020-11-29] MEDS: cefTRIAXone sodium 1 GM in 0.9 % Sodium Chloride 50 ML IV (06:25)
[2020-11-29] MEDS: Doxycycline Hyclate 100 MG in 0.9 % Sodium Chloride 250 ML 166.67 MG IV (06:25)
[2020-11-29 07:13] LABS: Glucose, Whole Blood 121 mg/dL (60-115)
[2020-11-29 10:19] LABS: Basophils Percent Auto 0.4 % (0-2); Eosinophils Absolute Auto 0.1 X10*3/uL (0.0-0.4); Eosinophils Percent Auto 1.8 % (0-4); Hematocrit 31.9 % (42-52); Hemoglobin 10.9 g/dl (14.0-18.0); Lymphocytes Absolute Auto 0.5 X10*3/uL (1.2-4.9); Lymphocytes Percent Auto 17.2 % (20-40); MANUAL DIFF FLAG SCAN; Mean Corpuscular HGB Conc 34.2 g/dl (31.0-36.0); Mean Corpuscular Hemoglobin 29.6 pg (27.0-33.0); Mean Corpuscular Volume 86.7 fL (80-98); Mean Platelet Volume 12.6 fL (9.4-12.4); Monocytes Absolute Auto 0.2 X10*3/uL (0.1-1.2); Monocytes Percent Auto 5.6 % (2-11); Neutrophils Absolute Auto 2.1 X10*3/uL (2.0-8.3); Platelet Count 111 X10*3/uL (160-400); Red Blood Count 3.68 X10*6/uL (4.60-5.80); SCAN SMEAR FLAG 1; White Blood Count 2.9 X10*3/uL (4.8-10.8)
[2020-11-29] MEDS: LORazepam 0.5 MG TABLET PO ×3 (10:30→21:38)
[2020-11-29] MEDS: Gabapentin 300 MG CAPSULE PO ×3 (10:30→21:38)
[2020-11-29] MEDS: Cyanocobalamin (Vitamin B-12) 1,000 MCG TABLET 1000 MCG PO (10:30)
[2020-11-29] MEDS: lisinopriL 20 MG TABLET PO (10:31)
[2020-11-29] MEDS: Escitalopram Oxalate 10 MG TABLET PO (10:31)
[2020-11-29] MEDS: Metoprolol Succinate ER 50 MG TAB.ER.24H PO (10:31)
[2020-11-29] MEDS: Atorvastatin Calcium 40 MG TABLET PO (10:31)
[2020-11-29] MEDS: 0.9 % Sodium Chloride Flush 3 ML SYRINGE IVFLUSH ×2 (10:32→15:32)
[2020-11-29 10:42] LABS: SLIDE REVIEW VERIFIED
[2020-11-29 10:49] LABS: Anion Gap 12 (12-20); Blood Urea Nitrogen 16 mg/dL (9-16); Calcium 8.5 mg/dL (8.4-10.2); Carbon Dioxide 31 mmol/L (22-29); Chloride 96 mmol/L (96-108); Estimated Glomerular Filt Rate > 60; Glucose Random 250 mg/dL (60-115); Potassium 4.2 mmol/L (3.3-5.1); Sodium 135 mmol/L (135-145)
--- NOTE | 2020-11-29 10:54 | MHC.SL.SWA ---
Speech Pathologist Impression: Risk of Aspiration Oralpharyngeal Dysphagia Risk of Aspiration Due to: Neurological Condition Reduced Cognition Dysphasia Diet Status: Upgrade Liquid Consistency and Strategies for Safe Swallow: Liquid Intake Recommendation: Thin Liquid Intake Strategies: Small Sips Solid Food Consistency: Dietary Recommendations: Regular Additional Modifications to Solid Foods: Avoid foods which give patient difficulty (i.e. he reports thick bread). Avoid tough/dry/sticky food. Moisten food with sauce/gravy when possible. Recommend strategies to facilitate mastication and promote oral clearance: small bites, chew food well, alternate food with sip of liquid. Oral Medication Intake: Whole with Puree Compensatory Strategies and Precautions to be Taken for Safe Swallow: Sitting Upright (90 deg) Small Bites and Sips Alternate Liquids/Solids Rate of Ingestion Change Avoid Specific Foods Supervision While Eating and Drinking for Safe Swallow: Total Assistance Foods to Avoid: avoid tough/dry/sticky foods Swallowing Recommended Treatments: Compens. Strategy Educat. Recommendation for Speech: Further ST intervention no longer warranted. Please re-refer if there are any changes or if CONCRETE POURER can be of further assistance. Comment: Avoid foods which give patient difficulty (i.e. he reports thick bread). Avoid tough/dry/sticky food. Moisten food with sauce/gravy when possible. Recommend strategies to facilitate mastication and promote oral clearance: small bites, chew food well, alternate food with sip of liquid. Binding Folder Machine Clinican/Clinical Fellow: No Supervisory Statement: I have reviewed and agree with the student/clinical fellow's documentation: N/A Speech Language Pathologist: Shalya Madrigal M.A., CCC-CONCRETE POURER
[2020-11-29 11:29] LABS: Glucose, Whole Blood 153 mg/dL (60-115)
--- NOTE | 2020-11-29 11:55 | W.PM.IDCN ---
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) Family History Family history: reviewed and not pertinent Social History Social History Alcohol intake: unknown service: No Meds Allergies Allergy/AdvReac Type Severity Reaction Status Date / Time No Known Allergies Allergy Verified 10/28/20 10:23 [No Known Allergies*] Active Medications: Current Medications Generic Name Dose Route Start Last Admin Trade Name Freq PRN Reason Stop Dose Admin Acetaminophen 650 mg 11/27/20 17:32 11/28/20 08:15 Acetaminophen 325 Mg Tablet PO 650 mg Q6H PRN Administration Pain, Mild (Pain Scale 1-3) Albuterol/Ipratropium 3 ml 11/28/20 02:05 11/28/20 02:18 Albuterol/Iprat 2.5/0.5mg 3 Ml Ampul.Neb INHALE 3 ml RQ4H PRN Administration Shortness of Breath/Wheezing Atorvastatin Calcium 40 mg 11/28/20 09:00 11/29/20 10:31 Atorvastatin Calcium 40 Mg Tablet PO 40 mg DAILY [facility] Administration Cyanocobalamin 1,000 mcg 11/28/20 09:00 11/29/20 10:30 Cyanocobalamin (Vitamin B-12) 1,000 Mcg Tablet PO 1,000 mcg DAILY [facility] Administration Divalproex Sodium 1,000 mg 11/27/20 21:00 11/28/20 20:51 Divalproex Sodium Er 500 Mg Tab.Er.24h PO 1,000 mg BEDTIME [facility] Administration Escitalopram Oxalate 10 mg 11/28/20 09:00 11/29/20 10:31 Escitalopram Oxalate 10 Mg Tablet PO 10 mg DAILY [facility] Administration Gabapentin 300 mg 11/27/20 21:00 11/29/20 10:30 Gabapentin 300 Mg Capsule PO 300 mg TID RO[facility] Administration Ceftriaxone Sodium 1 gm/ 50 mls @ 100 mls/hr 11/28/20 05:00 11/29/20 07:00 Sodium Chloride IV Infused Q24H [facility] Infusion Doxycycline Hyclate 100 mg/ 250 mls @ 166.67 mls/hr 11/28/20 06:00 11/29/20 10:38 Sodium Chloride IV Infused Q12H [facility] Infusion Insulin Human Lispro 0 unit 11/27/20 16:30 11/29/20 07:46 Insulin Lispro 100 Unit/Ml 3 Ml Vial SUBCUT Not Given QIDACHS [facility] Protocol Lisinopril 20 mg 11/28/20 09:00 11/29/20 10:31 Lisinopril 20 Mg Tablet PO 20 mg DAILY [facility] Administration Protocol Lorazepam 0.5 mg 11/27/20 21:00 11/29/20 10:30 Lorazepam 0.5 Mg Tablet PO 0.5 mg TID [facility] Administration Metoprolol Succinate 50 mg 11/28/20 09:00 11/29/20 10:31 Metoprolol Succinate Er 50 Mg Tab.Er.24h PO 50 mg DAILY [facility] Administration Protocol Omeprazole 20 mg 11/28/20 06:30 11/29/20 06:25 Omeprazole 20 Mg Capsule.Dr PO 20 mg DAILY@0630 [facility] Administration Ondansetron HCl 4 mg 11/27/20 17:32 Ondansetron Hcl 4 Mg/2 Ml Vial IVPUSH Q8H PRN Nausea and Vomiting Risperidone 0.25 mg 11/27/20 21:00 11/28/20 20:51 Risperidone 0.25 Mg Tablet PO 0.25 mg BEDTIME [facility] Administration Sodium Chloride 3 ml 11/27/20 17:32 11/29/20 10:32 0.9 % Sodium Chloride Flush 3 Ml Syringe IVFLUSH 3 ml QSHIFT [facility] Administration Zolpidem Tartrate 5 mg 11/27/20 17:32 Zolpidem Tartrate 5 Mg Tablet PO BEDTIME PRN insomnia Home Medications Medication Instructions Recorded Confirmed Last Taken Type atorvastatin 1 tab PO DAILY 11/27/20 11/27/20 11/26/20 History citalopram 1 tab PO DAILY 11/27/20 11/27/20 11/26/20 History cyanocobalamin (vitamin B-12) 1 tab PO DAILY 11/27/20 11/27/20 11/26/20 History [Vitamin B-12] divalproex 2 tab PO BEDTIME 11/27/20 11/27/20 11/26/20 History gabapentin 1 cap PO QID 11/27/20 11/27/20 11/26/20 History lisinopril 1 tab PO DAILY 11/27/20 11/27/20 11/26/20 History lorazepam 1 tab PO TID 11/27/20 11/27/20 11/26/20 History metformin 1 tab PO BID 11/27/20 11/27/20 11/26/20 History metoprolol succinate 1 tab PO DAILY 11/27/20 11/27/20 11/26/20 History omeprazole 1 cap PO DAILY 11/27/20 11/27/20 11/26/20 History risperidone 1 tab PO BEDTIME 11/27/20 11/27/20 11/26/20 History zolpidem 1 tab PO BEDTIME PRN 11/27/20 11/27/20 11/26/20 History Physical Exam Vital Signs: Vital Signs: Last Vital Signs Temp 98.6 F 11/29/20 11:32 Pulse 82 11/29/20 11:32 Resp 20 11/29/20 11:32 BP 137/63 11/29/20 11:32 Pulse Ox 95 11/29/20 11:32 Oxygen Flow Rate 2 11/27/20 02:52 Body Mass Index 32.0 Const: General: cooperative HENMT: Head: Yes normal to inspection Mouth: Normal oral and palatal mucosa present Resp: Effort & Inspection: normal respiratory effort Cardio: Rate: regular rate Rhythm: regular rhythm GI: Palpation (GI): Soft to palpation and nontender Skin: General skin exam: no rashes or lesions noted Results Labs CBC & Chem 7: 11/29/20 09:25 11/29/20 09:25 Labs: Short CBC 11/29/20 Range/Units 09:25 WBC 2.9 L (4.8-10.8) X10*3/uL Hgb 10.9 L (14.0-18.0) g/dl Hct 31.9 L (42-52) % Plt Count 111 L (160-400) X10*3/uL BMP 11/29/20 09:25 Sodium 135 Potassium 4.2 Chloride 96 Carbon Dioxide 31 H BUN 16 Creatinine 0.70 Calcium 8.5 Microbiology Microbiology Results: Microbiology 11/28/20 13:32 Kidney - Serrano Catheter Urine Culture - Final No growth. 11/27/20 04:33 Blood - Venous Blood Culture - Preliminary No growth after 48 hours. 11/27/20 04:35 Blood - Venous Blood Culture - Preliminary No growth after 48 hours. Assessment and Plan (1) Acute encephalopathy: Status: Acute There is no fever or focal signs of infection like HSV There is no elevated WBC and is receiving COVID vaccine,no COVID seen There is no pneumonia There is possible tick borne infection Would stop Ceftriaxone at this time Po Doxycycline and observe Can check anaplasma and babesia titers,no mention seen in smear
[2020-11-29] MEDS: Insulin Lispro 100 UNIT/ML 3 ML VIAL SUBCUT (12:07)
--- NOTE | 2020-11-29 12:30 | HO.PM.IMPN ---
Subjective Subjective Date of Service: 11/29/20 Interval History: No acute issues overnight, feeling better,no fevers in last 24 hrs, patient complaining of recurrent headache and lightheadedness that is chronic, no other complaints. 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 Neck supple , no tenderness C-spine no paravertebral muscle spasm, no JVD. CVS regular rate rhythm, Respiratory lungs clear to auscultation, no respiratory distress, no wheeze, no rhonchi. Gastrointestinal abdomen soft, nontender, bowel sounds audible, no guarding , no rigidity. Extremities no clubbing, cyanosis or edema. Neuro nonfocal Skin no rash Objective Data Current Medications Generic Name Dose Route Start Last Admin Trade Name Freq PRN Reason Stop Dose Admin Acetaminophen 650 mg 11/27/20 17:32 11/28/20 08:15 Acetaminophen 325 Mg Tablet PO 650 mg Q6H PRN Administration Pain, Mild (Pain Scale 1-3) Albuterol/Ipratropium 3 ml 11/28/20 02:05 11/28/20 02:18 Albuterol/Iprat 2.5/0.5mg 3 Ml Ampul.Neb INHALE 3 ml RQ4H PRN Administration Shortness of Breath/Wheezing Atorvastatin Calcium 40 mg 11/28/20 09:00 11/29/20 10:31 Atorvastatin Calcium 40 Mg Tablet PO 40 mg DAILY [facility] Administration Cyanocobalamin 1,000 mcg 11/28/20 09:00 11/29/20 10:30 Cyanocobalamin (Vitamin B-12) 1,000 Mcg Tablet PO 1,000 mcg DAILY [facility] Administration Divalproex Sodium 1,000 mg 11/27/20 21:00 11/28/20 20:51 Divalproex Sodium Er 500 Mg Tab.Er.24h PO 1,000 mg BEDTIME RO[facility] Administration Doxycycline Hyclate 100 mg 11/29/20 12:00 11/29/20 12:08 Doxycycline Hyclate 100 Mg Tablet PO 100 mg Q12H [facility] Administration Escitalopram Oxalate 10 mg 11/28/20 09:00 11/29/20 10:31 Escitalopram Oxalate 10 Mg Tablet PO 10 mg DAILY [facility] Administration Gabapentin 300 mg 11/27/20 21:00 11/29/20 10:30 Gabapentin 300 Mg Capsule PO 300 mg TID [facility] Administration Insulin Human Lispro 0 unit 11/27/20 16:30 11/29/20 12:07 Insulin Lispro 100 Unit/Ml 3 Ml Vial SUBCUT 2 unit QIDACHS [facility] Administration Protocol Lisinopril 20 mg 11/28/20 09:00 11/29/20 10:31 Lisinopril 20 Mg Tablet PO 20 mg DAILY [facility] Administration Protocol Lorazepam 0.5 mg 11/27/20 21:00 11/29/20 10:30 Lorazepam 0.5 Mg Tablet PO 0.5 mg TID [facility] Administration Metoprolol Succinate 50 mg 11/28/20 09:00 11/29/20 10:31 Metoprolol Succinate Er 50 Mg Tab.Er.24h PO 50 mg DAILY [facility] Administration Protocol Omeprazole 20 mg 11/28/20 06:30 11/29/20 06:25 Omeprazole 20 Mg Capsule.Dr PO 20 mg DAILY@0630 [facility] Administration Ondansetron HCl 4 mg 11/27/20 17:32 Ondansetron Hcl 4 Mg/2 Ml Vial IVPUSH Q8H PRN Nausea and Vomiting Risperidone 0.25 mg 11/27/20 21:00 11/28/20 20:51 Risperidone 0.25 Mg Tablet PO 0.25 mg BEDTIME [facility] Administration Sodium Chloride 3 ml 11/27/20 17:32 11/29/20 10:32 0.9 % Sodium Chloride Flush 3 Ml Syringe IVFLUSH 3 ml QSHIFT [facility] Administration Zolpidem Tartrate 5 mg 11/27/20 17:32 Zolpidem Tartrate 5 Mg Tablet PO BEDTIME PRN insomnia Labs CBC & Chem 7: 11/29/20 09:25 11/29/20 09:25 Microbiology Microbiology Results: Microbiology 11/28/20 13:32 Kidney - Serrano Catheter Urine Culture - Final No growth. 11/27/20 04:33 Blood - Venous Blood Culture - Preliminary No growth after 48 hours. 11/27/20 04:35 Blood - Venous Blood Culture - Preliminary No growth after 48 hours. Assessment and Plan (1) Acute encephalopathy: Status: Acute (2) Pneumonia: Status: Acute (3) Sepsis: Status: Acute Assessment and Plan: 70-year-old gentleman with prior history of cerebrovascular accident with no residuals, history of vascular dementia, hypertension, coming from home due to shakiness, mild confusion, and difficulty getting up from the toilet. The patient's workup in the emergency room showed no acute abnormality other than high-grade fever with no source of infection. The patient will be admitted for close monitoring and treatment and evaluation. 1. Acute encephalopathy. Resolved was likely due to fever and underlying infection. 2. Sepsis due to pneumonia sepsis resolved. no recurrent fevers in last several hrs,has persistent cough,wbc low likely due to viral infection Urine culture, blood culture showed no growth Respiratory viral panel pos for entero and rhino virus case d/w ID she rec po doxy will dc ceftriaoxne no h/o tick bit hold of on further testing on anaplasma and babesia titers Continue supportive care with Tylenol/Motrin, discharge home in next 24hrs if remains afebrile. 3. History of coronary artery disease. No evidence of acute coronary syndrome, Continue statin and metoprolol. 4. Diabetes mellitus. hold metformin. Follow blood sugars and insulin sliding scale. 5. Deep vein thrombosis prophylaxis. will use compression stockings due to chronic thromocytopenia.. 6. Hypertension soft blood pressure hold antihypertensives 7. Chronic gee and lightheadedness CT head showed no abnormality likley sxs due to polypharmacy reduce dose of neurontin Code status. Discussed with the patient and at bedside. He wishes to be a full code.
[2020-11-29 16:13] LABS: Glucose, Whole Blood 124 mg/dL (60-115)
[2020-11-29 19:51] LABS: Glucose, Whole Blood 130 mg/dL (60-115)
[2020-11-29] MEDS: Divalproex Sodium ER 500 MG TAB.ER.24H 1000 MG PO (21:38)
[2020-11-29] MEDS: risperiDONE 0.25 MG TABLET PO (21:38)
[2020-11-30] MEDS: 0.9 % Sodium Chloride Flush 3 ML SYRINGE IVFLUSH (00:32)
[2020-11-30 03:59] VITALS: BP 138/76; PULSE 76; RESP 20; TEMP 36.5; O2SAT 96
[2020-11-30] MEDS: Omeprazole 20 MG CAPSULE.DR PO (05:46)
[2020-11-30 06:17] LABS: MANUAL DIFF FLAG NO
[2020-11-30 06:24] LABS: Basophils Percent Auto 0.4 % (0-2); Eosinophils Absolute Auto 0.1 X10*3/uL (0.0-0.4); Eosinophils Percent Auto 2.3 % (0-4); Hemoglobin 11.2 g/dl (14.0-18.0); Imm Gran Abs Auto 0.01 X10*3/uL (0.00-0.03); Imm Gran Pct Auto 0.4 % (0.0-0.4); Mean Corpuscular HGB Conc 33.9 g/dl (31.0-36.0); Mean Corpuscular Hemoglobin 29.2 pg (27.0-33.0); Mean Corpuscular Volume 85.9 fL (80-98); Mean Platelet Volume 12.5 fL (9.4-12.4); Monocytes Absolute Auto 0.3 X10*3/uL (0.1-1.2); Monocytes Percent Auto 9.9 % (2-11); Neutrophils Absolute Auto 1.3 X10*3/uL (2.0-8.3); Platelet Count 126 X10*3/uL (160-400); Red Blood Count 3.84 X10*6/uL (4.60-5.80); Red Cell Distribution Width 15.9 % (11.0-16.0); White Blood Count 2.6 X10*3/uL (4.8-10.8)
[2020-11-30 07:26] LABS: Glucose, Whole Blood 130 mg/dL (60-115)
[2020-11-30 08:00] VITALS: BP 167/84; PULSE 84; RESP 20; TEMP 36.6; O2SAT 99
[2020-11-30 09:22] VITALS: BP 167/84; PULSE 84
[2020-11-30] MEDS: lisinopriL 20 MG TABLET PO (09:22)
[2020-11-30 09:23] VITALS: BP 167/84; PULSE 84
[2020-11-30] MEDS: Gabapentin 300 MG CAPSULE PO (09:23)
[2020-11-30] MEDS: Metoprolol Succinate ER 50 MG TAB.ER.24H PO (09:23)
[2020-11-30] MEDS: Atorvastatin Calcium 40 MG TABLET PO (09:23)
[2020-11-30] MEDS: Escitalopram Oxalate 10 MG TABLET PO (09:23)
[2020-11-30] MEDS: Cyanocobalamin (Vitamin B-12) 1,000 MCG TABLET 1000 MCG PO (09:23)
[2020-11-30] MEDS: LORazepam 0.5 MG TABLET PO (09:23)
--- NOTE | 2020-11-30 10:02 | PM.DS ---
DS: Providers Provider Date of Service: 11/30/20 Date of admission: 11/27/20 17:34 Primary care physician: Jp Chan MD Consults: 11/27/20 18:48 Consult to Infectious Diseases Stat Consulting Provider: Laurie Rosario Reason for consultation: fever Has provider been notified: No DS: Diagnosis Discharge Diagnosis (1) Acute encephalopathy: Status: Acute (2) Pneumonia: Status: Acute (3) Sepsis: Status: Acute DS: Medications Discharge Medications Home Medications: Home Medications Medication Instructions Recorded Confirmed atorvastatin 1 tab PO DAILY 11/27/20 11/27/20 citalopram 1 tab PO DAILY 11/27/20 11/27/20 cyanocobalamin (vitamin B-12) 1 tab PO DAILY 11/27/20 11/27/20 [Vitamin B-12] divalproex 2 tab PO BEDTIME 11/27/20 11/27/20 gabapentin 1 cap PO QID 11/27/20 11/27/20 lisinopril 1 tab PO DAILY 11/27/20 11/27/20 lorazepam 1 tab PO TID 11/27/20 11/27/20 metformin 1 tab PO BID 11/27/20 11/27/20 metoprolol succinate 1 tab PO DAILY 11/27/20 11/27/20 omeprazole 1 cap PO DAILY 11/27/20 11/27/20 risperidone 1 tab PO BEDTIME 11/27/20 11/27/20 zolpidem 1 tab PO BEDTIME PRN 11/27/20 11/27/20 Previous Rx's Medication Instructions Recorded doxycycline hyclate 100 mg PO Q12H #10 tab 11/30/20 DS: Summary Hospital Course Hospital Course: History of presenting illness CHIEF COMPLAINT: Confusion. 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 Since he got up last night to use the bathroom and was unable to getup from the toilet, the was unable to assist him. As per , he was noted to be confused and shaking, so she called the ambulance and the patient was brought into [facility]. According to the patient, he does not remember how he came to the hospital, but was feeling cold and noted thathe has been coughing a lot since last night. Otherwise, he was at his usual health up until last night. She denies any sick contacts. The patient denies any nausea, vomiting, abdominal pain, no diarrhea. He denies any lightheadedness or dizziness. The patient is due for his second COVID vaccine on December 05. Patient's workup in the emergency room revealed a normal head CAT scan. CT chest showed no acute abnormality. Urinalysis is unremarkable.Troponins are flat. BNP is 279. Initially, blood pressure was elevated at 176/84 and his temperature was low at 94 on arrival to the emergency room that bumped up to 102 and then subsequently 104.4. With no source of infection found in the emergency room, patient received 1 dose of IV Zosyn, IV fluid, IV Lasix, Tylenol, and Motrin. Currently afebrile. Awake, alert, able to answer questions appropriately. Denies any shakiness, chest pain, shortness of breath, any rashes. PAST MEDICAL HISTORY: Significant for, 1. Hypertension. 2. Hyper lipidemia. 3. History of coronary artery disease. 4. History of nsa-xsbwhts-jityjqjns diabetes mellitus. 5. History of CVA x2. 6. Vascular dementia. 70-year-old gentleman with prior history of cerebrovascular accident with no residuals, history of vascular dementia, hypertension, coming from home due to shakiness, mild confusion, and difficulty getting up from the toilet. The patient's workup in the emergency room showed no acute abnormality other than high-grade fever with no source of infection, patient admitted for close monitoring and treatment and evaluation. Acute encephalopathy with sepsis related to viral infection, and possible secondary bacterial pneumonia, patient confusion resolved and was felt to be related to high-grade fever of 104.[address] chest and urinalysis showed no acute abnormality however repeat chest x-ray showed retrocardiac opacity possible pneumonia versus atelectasis patient was treated with IV ceftriaxone and doxycycline ,had 2 set of blood cultures and urine culture showed no growth patient fever resolved within 24 hours, respiratory viral panel is positive for entero/rhinovirus suggesting viral infection. Since patient fever is resolved and he has been feeling significantly better he is being discharged home on 5 more days of by mouth doxy to cover for super added bacterial infection patient has been instructed to use cough medication as needed and to resume all home medication. History of coronary artery disease. No evidence of acute coronary syndrome, Continue statin and metoprolol. History of chronic headache and lightheadedness recommend to reduce dose of Neurontin to 3 times a day and to discuss medications with Psychiatry. Time Spent with Patient Time attestation: Total time spent providing and/or coordinating discharge services: Discharge coordination time: Greater than 30 minutes Quality: Stroke Does the patient have a stroke diagnosis?: No Physical Exam Vital Signs: Vital Signs: Last Vital Signs Temp 97.9 F 11/30/20 08:00 Pulse 84 11/30/20 09:23 Resp 20 11/30/20 08:00 BP 167/84 H 11/30/20 09:23 Pulse Ox 99 11/30/20 08:00 Oxygen Flow Rate 2 11/27/20 02:52 Body Mass Index 32.0 General resting comfortably in no acute distress. Neck supple , no tenderness C-spine no paravertebral muscle spasm, no JVD. CVS regular rate rhythm, Respiratory lungs clear to auscultation, no respiratory distress, no wheeze, no rhonchi. Gastrointestinal abdomen soft, nontender, bowel sounds audible, no guarding , no rigidity. Extremities no clubbing, cyanosis or edema. Neuro nonfocal Skin no rash DS: Data Data Completed and Pending Labs on day of discharge: Laboratory Results - last 24 hr 11/29/20 11/29/20 11/29/20 09:25 09:25 11:23 WBC 2.9 L RBC 3.68 L Hgb 10.9 L Hct 31.9 L MCV 86.7 MCH 29.6 MCHC 34.2 RDW 16.0 Plt Count 111 L MPV 12.6 H Immature Gran % (Auto) 0.0 Neut % (Auto) 75.0 H Lymph % (Auto) 17.2 L [place] % (Auto) 5.6 Eos % (Auto) 1.8 Baso % (Auto) 0.4 Lymph # (Auto) 0.5 L [place] # (Auto) 0.2 Eos # (Auto) 0.1 Baso # (Auto) 0.0 Abs Immat Gran (auto) 0.00 Absolute Neuts (auto) 2.1 Absolute Nucleated RBC 0.000 Nucleated RBC % (auto) 0.0 Smear Tech's Comments VERIFIED Sodium 135 Potassium 4.2 Chloride 96 Carbon Dioxide 31 H Anion Gap 12 BUN 16 Creatinine 0.70 Estim Creat Clear Calc 110.0 Estimated GFR > 60 POC Glucose 153 H Random Glucose 250 H Calcium 8.5 11/29/20 11/29/20 11/30/20 16:07 19:45 05:51 WBC 2.6 L RBC 3.84 L Hgb 11.2 L Hct 33.0 L MCV 85.9 MCH 29.2 MCHC 33.9 RDW 15.9 Plt Count 126 L MPV 12.5 H Immature Gran % (Auto) 0.4 Neut % (Auto) 50.0 Lymph % (Auto) 37.0 [place] % (Auto) 9.9 Eos % (Auto) 2.3 Baso % (Auto) 0.4 Lymph # (Auto) 1.0 L [place] # (Auto) 0.3 Eos # (Auto) 0.1 Baso # (Auto) 0.0 Abs Immat Gran (auto) 0.01 Absolute Neuts (auto) 1.3 L Absolute Nucleated RBC 0.000 Nucleated RBC % (auto) 0.0 Smear Tech's Comments Sodium Potassium Chloride Carbon Dioxide Anion Gap BUN Creatinine Estim Creat Clear Calc Estimated GFR POC Glucose 124 H 130 H Random Glucose Calcium 11/30/20 07:14 WBC RBC Hgb Hct MCV MCH MCHC RDW Plt Count MPV Immature Gran % (Auto) Neut % (Auto) Lymph % (Auto) [place] % (Auto) Eos % (Auto) Baso % (Auto) Lymph # (Auto) [place] # (Auto) Eos # (Auto) Baso # (Auto) Abs Immat Gran (auto) Absolute Neuts (auto) Absolute Nucleated RBC Nucleated RBC % (auto) Smear Tech's Comments Sodium Potassium Chloride Carbon Dioxide Anion Gap BUN Creatinine Estim Creat Clear Calc Estimated GFR POC Glucose 130 H Random Glucose Calcium Preliminary micro results at discharge 11/27/20 04:33 Blood Culture - Preliminary Blood - Venous No growth after 48 hours. 11/27/20 04:35 Blood Culture - Preliminary Blood - Venous No growth after 48 hours. Discharge Plan Discharge Patient Disposition: Home, Self-Care Discharge Diagnosis: Sepsis due to viral infection Acute encephalopathy Pneumonia Referrals: Jp Chan MD [Primary Care Provider] - 1 Week Discharge Medications: New doxycycline hyclate 100 mg Tablet 100 mg PO Q12H Qty: 10 RF: 0 Continued atorvastatin 40 mg tablet 1 tab PO DAILY RF: 0 metformin 500 mg tablet 1 tab PO BID RF: 0 metoprolol succinate 50 mg tablet extended release 24 hr 1 tab PO DAILY RF: 0 lisinopril 20 mg tablet 1 tab PO DAILY RF: 0 cyanocobalamin (vitamin B-12) [Vitamin B-12] 1,000 mcg tablet 1 tab PO DAILY RF: 0 risperidone 0.25 mg tablet 1 tab PO BEDTIME RF: 0 citalopram 20 mg tablet 1 tab PO DAILY RF: 0 lorazepam 0.5 mg tablet 1 tab PO TID RF: 0 divalproex 500 mg tablet extended release 24 hr 2 tab PO BEDTIME RF: 0 gabapentin 300 mg capsule 1 cap PO QID RF: 0 omeprazole 20 mg capsule,delayed release(DR/EC) 1 cap PO DAILY RF: 0 zolpidem 5 mg tablet 1 tab PO BEDTIME PRN (Reason: insomnia) RF: 0 Discharge Orders: Discharge Order (Routine); Ordered 11/30/20 Ordered By: Romulo Rodgers Diet: diabetic diet Activity on Discharge: As tolerated Stand Alone Forms: Patient Portal Discharge page Care Plan Goals: Fever and confusion resolved was likely due to viral infection, take by mouth doxycycline for 5 days, take cough medication as needed Health Concerns: Continue all home medications as before follow diabetic diet In regard to your current infection take doxycycline and cough medication Plan of Treatment: Follow-up with primary care physician in 1 week Assessment: As above
--- NOTE | 2020-11-30 10:03 | MHC.CM.PN ---
Patient has been medically cleared for dc to home today, no services. Last IMM addressed on 11/28/20.
[2020-11-30 11:10] LABS: Glucose, Whole Blood 147 mg/dL (60-115)
== END 2020-11-30 12:20 | disposition home or self-care (01) | DRG 871 ==
LOC: HO.ED 06:39 → HO.IMC 11-28 16:26
PROVIDERS: Hospitalist; Admitting Provider Hospitalist; Emergency Provider Student in an Organized Health Care Education/Training Program; PCP Internal Medicine; Visit Provider Hospitalist
DX: A41.9 Sepsis, unspecified organism (principal); J18.9 Pneumonia, unspecified organism; E87.2 Acidosis; G93.40 Encephalopathy, unspecified; E78.5 Hyperlipidemia, unspecified; G44.89 Other headache syndrome; I10 Essential (primary) hypertension; F01.50 Vascular dementia, unspecified severity, without behavioral disturbance, psychotic disturbance, mood disturbance, and anxiety; E11.9 Type 2 diabetes mellitus without complications; B34.1 Enterovirus infection, unspecified; I25.2 Old myocardial infarction; I25.10 Atherosclerotic heart disease of native coronary artery without angina pectoris; Z20.822 Contact with and (suspected) exposure to COVID-19; Z86.73 Personal history of transient ischemic attack (TIA), and cerebral infarction without residual deficits; Z79.84 Long term (current) use of oral hypoglycemic drugs; Z79.899 Other long term (current) drug therapy
CPT/HCPCS: 36415; 70450; 71045; 71250; 80048; 81001; 81003; 82550; 82947; 83605; 83880; 84484; 85025; 85610; 85730; 87040; 87086; 87633; 87635; 92610; 93005; 94640; 96365; 96375; 99219; 99285; J0696; J1940; J2543

== ENCOUNTER 2020-12-28 14:36 | Outpatient (REF) | payer MEDICARE, SELFPAY ==
[2020-12-28 14:39] LABS: MANUAL DIFF FLAG NO
[2020-12-28 14:43] LABS: Basophils Percent Auto 0.7 % (0-2); Eosinophils Percent Auto 1.3 % (0-4); Hematocrit 36.4 % (42-52); Hemoglobin 12.1 g/dl (14.0-18.0); Lymphocytes Absolute Auto 0.6 X10*3/uL (1.2-4.9); Lymphocytes Percent Auto 19.1 % (20-40); Mean Corpuscular HGB Conc 33.2 g/dl (31.0-36.0); Mean Corpuscular Hemoglobin 29.1 pg (27.0-33.0); Mean Corpuscular Volume 87.5 fL (80-98); Mean Platelet Volume 11.9 fL (9.4-12.4); Monocytes Absolute Auto 0.5 X10*3/uL (0.1-1.2); Monocytes Percent Auto 17.4 % (2-11); Neutrophils Absolute Auto 1.8 X10*3/uL (2.0-8.3); Neutrophils Percent Auto 61.5 % (45-73); Platelet Count 123 X10*3/uL (160-400); Red Blood Count 4.16 X10*6/uL (4.60-5.80); Red Cell Distribution Width 15.1 % (11.0-16.0)
== END 2020-12-28 14:37 | disposition home or self-care (01) ==
LOC: HO.LNP 14:36
PROVIDERS: Visit Provider Internal Medicine
DX: D70.3 Neutropenia due to infection (principal)
CPT/HCPCS: 85025

== ENCOUNTER 2021-01-10 10:13 | Outpatient (REF) | payer MEDICARE, SELFPAY ==
[2021-01-10 10:16] LABS: MANUAL DIFF FLAG NO
[2021-01-10 11:12] LABS: Basophils Percent Auto 0.5 % (0-2); Eosinophils Absolute Auto 0.1 X10*3/uL (0.0-0.4); Eosinophils Percent Auto 2.4 % (0-4); Estimated Average Glucose 82 mg/dL; Hematocrit 36.2 % (42-52); Hemoglobin 12.2 g/dl (14.0-18.0); Hemoglobin A1c % 4.5 %; Imm Gran Abs Auto 0.03 X10*3/uL (0.00-0.03); Imm Gran Pct Auto 0.7 % (0.0-0.4); Lymphocytes Absolute Auto 1.1 X10*3/uL (1.2-4.9); Lymphocytes Percent Auto 25.2 % (20-40); Mean Corpuscular HGB Conc 33.7 g/dl (31.0-36.0); Mean Corpuscular Hemoglobin 29.2 pg (27.0-33.0); Mean Corpuscular Volume 86.6 fL (80-98); Mean Platelet Volume 11.2 fL (9.4-12.4); Monocytes Absolute Auto 0.4 X10*3/uL (0.1-1.2); Neutrophils Absolute Auto 2.6 X10*3/uL (2.0-8.3); Neutrophils Percent Auto 62.2 % (45-73); Platelet Count 152 X10*3/uL (160-400); Red Blood Count 4.18 X10*6/uL (4.60-5.80); Red Cell Distribution Width 15.3 % (11.0-16.0); White Blood Count 4.2 X10*3/uL (4.8-10.8)
[2021-01-10 11:44] LABS: Alanine Aminotransferase 11 U/L (0-40); Albumin Level 3.7 g/dL (3.5-5.0); Alkaline Phosphatase 112 U/L (39-117); Aspartate Amino Transferase 12 U/L (5-37); Bilirubin Direct 0.4 mg/dL (0.0-0.5); Bilirubin Total 0.9 mg/dL (0.0-1.0); Cholesterol 93 mg/dL; Glucose Fasting 107 mg/dL (60-99); HDL Cholesterol 39 mg/dL; LDL Cholesterol Calculated 45 mg/dl; Total Protein 5.8 g/dL (6.5-8.0); Triglycerides 45 mg/dL
[2021-01-10 12:31] LABS: Reflex LDLD? No
== END 2021-01-10 10:14 | disposition home or self-care (01) ==
LOC: HO.LNP 10:13
PROVIDERS: Visit Provider Internal Medicine
DX: E78.00 Pure hypercholesterolemia, unspecified (principal); E11.40 Type 2 diabetes mellitus with diabetic neuropathy, unspecified
CPT/HCPCS: 80061; 80076; 82947; 83036; 85025

== ENCOUNTER 2021-03-20 16:26 | Emergency (ER) | payer MEDICARE, SELFPAY ==
--- NOTE | ~2021-03-20 | CT_ITS ---
EXAMINATION: CT BRAIN AND CT CERVICAL SPINE WITHOUT CONTRAST. CLINICAL INFORMATION: Status post fall with head strike. COMPARISON: None TECHNIQUE: 5 mm thin axial and reformatted 2 mm thin sagittal coronal images of brain were obtained without contrast. Three-minute thin axial and reformatted 2 mm thin sagittal and coronal images of cervical spine were obtained without contrast. DLP [id number]. FINDINGS: BRAIN: There is no acute intra-axial, extra-axial bleed, masses or midline shift. There is no acute infarction evolution. There is no edema. The lateral ventricles are symmetrical in size and configuration but mildly enlarged. Bone windows reveal no calvarial abnormality. There is no scalp soft tissue abnormality either. There is mild mucoperiosteal thickening bilateral maxillary sinuses. Rest the paranasal sinuses and mastoid air cells are well-aerated. CERVICAL SPINE: On sagittal reconstructed images there is mild straightening of cervical lordosis. The vertebral heights and alignment is normal. There is loss of C5-C6, C6-C7 disc heights with moderate ventral spondylosis. The craniovertebral junction and the C1-C2 alignment is normal. There is no visible acute fracture, dislocation or subluxation. Moderate left C2-C3, bilateral C3-4 and right C4-C5 facet joint arthropathy is noted. The prevertebral and paravertebral soft tissues are normal. The lung apices are clear. CT/CT cervical spine wo con IMPRESSION: No acute intracranial process seen. Age-related mild cerebral volume loss. No acute fracture, dislocation or subluxation of cervical spine. There is mild straightening of cervical lordosis likely spasm or positional. There are degenerative disc changes and spondylosis of cervical spine.
--- NOTE | ~2021-03-20 | XR_ITS ---
EXAMINATION: LEFT ELBOW, LEFT HUMERUS AND LEFT SHOULDER. CLINICAL INFORMATION: Status post fall with pain. COMPARISON: None TECHNIQUE: Left elbow 2 views left humerus 2 views. Left shoulder 2 views. FINDINGS: Left elbow: There is no visible acute fracture, dislocation or subluxation seen. Left humerus and left shoulder: There is a surgical neck displaced comminuted fracture left humerus with medial angulation. There is no dislocation. There is mild loss of left AC joint space suggestive of degenerative arthritic changes. The soft tissues are normal. XR/XR elbow LT min 3V IMPRESSION: Surgical neck displaced comminuted fracture left humerus. There is no dislocation. There is mild degenerative changes of the left AC joint. Rest of the left humerus is normal. Unremarkable left elbow exam.
--- NOTE | ~2021-03-20 | XR_ITS ---
EXAMINATION: LEFT ELBOW, LEFT HUMERUS AND LEFT SHOULDER. CLINICAL INFORMATION: Status post fall with pain. COMPARISON: None TECHNIQUE: Left elbow 2 views left humerus 2 views. Left shoulder 2 views. FINDINGS: Left elbow: There is no visible acute fracture, dislocation or subluxation seen. Left humerus and left shoulder: There is a surgical neck displaced comminuted fracture left humerus with medial angulation. There is no dislocation. There is mild loss of left AC joint space suggestive of degenerative arthritic changes. The soft tissues are normal. XR/XR shoulder LT min 2V IMPRESSION: Surgical neck displaced comminuted fracture left humerus. There is no dislocation. There is mild degenerative changes of the left AC joint. Rest of the left humerus is normal. Unremarkable left elbow exam.
--- NOTE | ~2021-03-20 | XR_ITS ---
EXAMINATION: LEFT ELBOW, LEFT HUMERUS AND LEFT SHOULDER. CLINICAL INFORMATION: Status post fall with pain. COMPARISON: None TECHNIQUE: Left elbow 2 views left humerus 2 views. Left shoulder 2 views. FINDINGS: Left elbow: There is no visible acute fracture, dislocation or subluxation seen. Left humerus and left shoulder: There is a surgical neck displaced comminuted fracture left humerus with medial angulation. There is no dislocation. There is mild loss of left AC joint space suggestive of degenerative arthritic changes. The soft tissues are normal. XR/XR humerus LT IMPRESSION: Surgical neck displaced comminuted fracture left humerus. There is no dislocation. There is mild degenerative changes of the left AC joint. Rest of the left humerus is normal. Unremarkable left elbow exam.
--- NOTE | ~2021-03-20 | CT_ITS ---
EXAMINATION: CT BRAIN AND CT CERVICAL SPINE WITHOUT CONTRAST. CLINICAL INFORMATION: Status post fall with head strike. COMPARISON: None TECHNIQUE: 5 mm thin axial and reformatted 2 mm thin sagittal coronal images of brain were obtained without contrast. Three-minute thin axial and reformatted 2 mm thin sagittal and coronal images of cervical spine were obtained without contrast. DLP [id number]. FINDINGS: BRAIN: There is no acute intra-axial, extra-axial bleed, masses or midline shift. There is no acute infarction evolution. There is no edema. The lateral ventricles are symmetrical in size and configuration but mildly enlarged. Bone windows reveal no calvarial abnormality. There is no scalp soft tissue abnormality either. There is mild mucoperiosteal thickening bilateral maxillary sinuses. Rest the paranasal sinuses and mastoid air cells are well-aerated. CERVICAL SPINE: On sagittal reconstructed images there is mild straightening of cervical lordosis. The vertebral heights and alignment is normal. There is loss of C5-C6, C6-C7 disc heights with moderate ventral spondylosis. The craniovertebral junction and the C1-C2 alignment is normal. There is no visible acute fracture, dislocation or subluxation. Moderate left C2-C3, bilateral C3-4 and right C4-C5 facet joint arthropathy is noted. The prevertebral and paravertebral soft tissues are normal. The lung apices are clear. CT/CT head/brain wo con IMPRESSION: No acute intracranial process seen. Age-related mild cerebral volume loss. No acute fracture, dislocation or subluxation of cervical spine. There is mild straightening of cervical lordosis likely spasm or positional. There are degenerative disc changes and spondylosis of cervical spine.
[2021-03-20 16:54] VITALS: BP 196/106; PULSE 79; RESP 16; TEMP 36.8; O2SAT 98; BMI 28.5
--- NOTE | 2021-03-20 16:57 | ED_ITS ---
HPI - Fall General Chief Complaint: Fall Stated Complaint: FALL Time Seen by Provider: 03/20/21 16:56 Source: patient and EMS Mode of arrival: EMS Limitations: no limitations History of Present Illness HPI Narrative: 71 y/o male with history of vascular dementia, history of CVA, HTN, HLD, DM2, CAD, sepsis 2/2 PNA who presents to the ED via EMS from home s/p fall. He reports when he was using his cane to walk upstairs in his home he tripped on the tread and fell backward down several stairs, possibly 10. He hit his head on the window sill and fell down all the stairs. He did not lose consciousness. He is not on anticoagulation but he is on aspirin. He reports pain in his left shoulder and upper arm. He reports the pain is 7/10. No headache or neck pain. He denied dizziness, lightheadedness or chest pain prior to the fall. MD complaint: fall Onset (ago): minute(s) Fall from: standing Fall witnessed: no Place fall occurred: home Loss of consciousness: none Prolonged down time: no Symptoms prior to fall: none Context: tripped/slipped Location of injury - extremities: left: shoulder and arm Severity: moderate Severity scale (1-10): 7 Quality: aching Associated symptoms (after fall): denies Related Data Home Medications Medication Instructions Recorded Confirmed atorvastatin 40 mg tablet 40 mg PO DAILY 11/27/20 03/20/21 citalopram 20 mg tablet 20 mg PO DAILY 11/27/20 03/20/21 cyanocobalamin (vitamin B-12) 1,000 mcg PO DAILY 11/27/20 03/20/21 1,000 mcg tablet (Vitamin B-12) divalproex 500 mg tablet,extended 1,000 mg PO BEDTIME 11/27/20 03/20/21 release 24 hr lisinopril 20 mg tablet 20 mg PO DAILY 11/27/20 03/20/21 lorazepam 0.5 mg tablet 0.5 tab PO BEDTIME 11/27/20 03/20/21 metformin 500 mg tablet 500 mg PO BID 11/27/20 03/20/21 metoprolol succinate 50 mg 50 mg PO DAILY 11/27/20 03/20/21 tablet,extended release 24 hr omeprazole 20 mg capsule,delayed 20 mg PO DAILY 11/27/20 03/20/21 release risperidone 0.25 mg tablet 0.25 mg PO BEDTIME 11/27/20 03/20/21 zolpidem 5 mg tablet 5 mg PO BEDTIME PRN 11/27/20 03/20/21 gabapentin 300 mg capsule 300 mg PO QID 03/20/21 03/20/21 Previous Rx's Medication Instructions Recorded oxycodone 5 mg tablet 5 mg PO Q6H PRN #8 tab 03/21/21 Allergies Allergy/AdvReac Type Severity Reaction Status Date / Time No Known Allergies Allergy Verified 10/28/20 10:23 [No Known Allergies*] Review of Systems Review of Systems: Constitutional: No Fever, No Chills ENT/Mouth: No sore throat, No Rhinorrhea, No Swallowing Difficulty Cardiovascular: No Chest Pain, No SOB, No Orthopnea, No Edema Respiratory: No Cough, No Sputum, No Wheezing, No dyspnea Gastrointestinal: No Nausea, No Vomiting, No Diarrhea, No abdominal Pain Genitourinary: No Dysuria, No Urinary Frequency, No Hematuria Musculoskeletal: + joint pain, + Myalgias Skin: No Skin Lesions, No rash Neuro: No Weakness, No Numbness, No Dizziness, No Headache Psych: No Anxiety/Panic, No Depression Heme/Lymph: No Bruising, No Lymphadenopathy Endocrine: No Polyuria, No Polydipsia PMFSH Past Medical History Attestation statement: The following information was validated with the patient. Medical History CVA (cerebral vascular accident) Dementia HTN (hypertension) Hyperlipidemia Myocardial infarct, old NIDDY (non-insulin dependent diabetes mellitus in young) Social History Social History Alcohol intake: unknown Advance Directives: No Advance Directives Information Provided: No service: No Physical Exam Vital Signs: Vital Signs: Last Vital Signs Temp 98.3 F 03/20/21 16:54 Pulse 73 03/20/21 18:06 Resp 16 03/20/21 18:06 BP 139/64 03/20/21 18:06 Pulse Ox 97 03/20/21 18:06 Body Mass Index 28.5 Appearance: Alert elderly male in cervical collar. Oriented Eyes: Pupils equal, round and reactive to light. ENT: Pharynx normal. Neck: Normal inspection. Neck supple. CVS: Normal heart rate and rhythm. Pulses normal. Respiratory: No respiratory distress. Breath sounds normal. Abdomen: Soft and nontender. +BS x4 Skin: Skin warm and dry. Normal skin color. Normal skin turgor. No rashes. Extremities: right UE with tremor, normal palpation and ROM of right shoulder, elbow and wrist. Pelvis is stable and nontender to compression. Left upper extremity in a sling, tenderness to the proximal humerus. No lower extremity edema. Neuro: Oriented X 3. No motor deficit. No sensory deficit. Course Course Course Narrative: 71 y/o male presenting with left shoulder pain s/p trip and fall down several stairs at home. No LOC. Concern for humerus fracture, he otherwise appears well and is nonfocal. Will get CT head/neck, XR LUE/shoulder and lab workup. Anticipate PT/CM. Reevaluation(s) Reevaluation #1: Lab work up showing stable normocytic anemia, chem and UA normal. CT head/c-spine without traumatic injury. C-spine cleared and now going for XR. Has received IV fentanyl with some improvement. Reevaluation #2: XR showing displaced comminuted surgical neck fracture of the left humerua. Soni Coyle PA-C from Ortho TT XR and patient info - recommended conservative management with sling and outpatient follow up. Will have patient seen by PT in the morning and Case Management consulted for probable placement to acute rehab. Physician observation started at 12am. Patient placed in physician observation because patient is awaiting PT evaluation for probable acute rehab placement. At the time observation was started patient's vital signs were stable. Patient is alert and oriented. Neuro exam is non-focal. CV: RRR and lungs are clear. Will continue to monitor. Consultations Consultation #1: PT Consultation #2: Case management MDM - Fall Medical Records Attestation: I reviewed the patient's medical records. Lab Data Attestation: I reviewed the patient's lab results. Result diagrams: 03/20/21 17:26 03/20/21 17:26 Labs: Lab Results 03/20/21 03/20/21 03/20/21 Range/Units 17:26 17:26 17:26 WBC 9.7 (4.8-10.8) X10*3/uL RBC 4.13 L (4.60-5.80) X10*6/uL Hgb 12.4 L (14.0-18.0) g/dl Hct 34.8 L (42-52) % MCV 84.3 (80-98) fL MCH 30.0 (27.0-33.0) pg MCHC 35.6 (31.0-36.0) g/dl RDW 14.9 (11.0-16.0) % Plt Count 161 (160-400) X10*3/uL MPV 12.5 H (9.4-12.4) fL Immature Gran % (Auto) 0.5 H (0.0-0.4) % Neut % (Auto) 87.6 H (45-73) % Lymph % (Auto) 6.2 L (20-40) % [place] % (Auto) 4.8 (2-11) % Eos % (Auto) 0.5 (0-4) % Baso % (Auto) 0.4 (0-2) % Lymph # (Auto) 0.6 L (1.2-4.9) X10*3/uL [place] # (Auto) 0.5 (0.1-1.2) X10*3/uL Eos # (Auto) 0.1 (0.0-0.4) X10*3/uL Baso # (Auto) 0.0 (0.0-0.2) X10*3/uL Abs Immat Gran (auto) 0.05 H (0.00-0.03) X10*3/uL Absolute Neuts (auto) 8.5 H (2.0-8.3) X10*3/uL Absolute Nucleated RBC 0.000 (0.0-0.012) X10*3/uL Nucleated RBC % (auto) 0.0 (0.0-0.2) /100WBC Sodium 138 (135-145) mmol/L Potassium 4.4 (3.3-5.1) mmol/L Chloride 104 (96-108) mmol/L Carbon Dioxide 26 (22-29) mmol/L Anion Gap 12 (12-20) BUN 10 (9-16) mg/dL Creatinine 0.62 (0.5-1.4) mg/dL Estim Creat Clear Calc 123.5 Estimated GFR > 60 Random Glucose 123 H D (60-115) mg/dL Calcium 8.5 (8.4-10.2) mg/dL Urine Color Urine Appearance Urine pH (5.0-8.0) Ur Specific [place] (1.005-1.025) Urine Protein (NEG-TRACE) MG/DL Urine Glucose (UA) (NEG) MG/DL Urine Ketones (NEG) MG/DL Urine Blood (NEG) Urine Nitrite (NEG) Ur Leukocyte Esterase (NEG) COVID-19 (RICA) Negative (Negative) COVID-19 Clin Com See Note 03/20/21 Range/Units 19:19 WBC (4.8-10.8) X10*3/uL RBC (4.60-5.80) X10*6/uL Hgb (14.0-18.0) g/dl Hct (42-52) % MCV (80-98) fL MCH (27.0-33.0) pg MCHC (31.0-36.0) g/dl RDW (11.0-16.0) % Plt Count (160-400) X10*3/uL MPV (9.4-12.4) fL Immature Gran % (Auto) (0.0-0.4) % Neut % (Auto) (45-73) % Lymph % (Auto) (20-40) % [place] % (Auto) (2-11) % Eos % (Auto) (0-4) % Baso % (Auto) (0-2) % Lymph # (Auto) (1.2-4.9) X10*3/uL [place] # (Auto) (0.1-1.2) X10*3/uL Eos # (Auto) (0.0-0.4) X10*3/uL Baso # (Auto) (0.0-0.2) X10*3/uL Abs Immat Gran (auto) (0.00-0.03) X10*3/uL Absolute Neuts (auto) (2.0-8.3) X10*3/uL Absolute Nucleated RBC (0.0-0.012) X10*3/uL Nucleated RBC % (auto) (0.0-0.2) /100WBC Sodium (135-145) mmol/L Potassium (3.3-5.1) mmol/L Chloride (96-108) mmol/L Carbon Dioxide (22-29) mmol/L Anion Gap (12-20) BUN (9-16) mg/dL Creatinine (0.5-1.4) mg/dL Estim Creat Clear Calc Estimated GFR Random Glucose (60-115) mg/dL Calcium (8.4-10.2) mg/dL Urine Color YELLOW Urine Appearance CLEAR Urine pH 7.5 (5.0-8.0) Ur Specific [place] 1.020 (1.005-1.025) Urine Protein NEG (NEG-TRACE) MG/DL Urine Glucose (UA) NEG (NEG) MG/DL Urine Ketones NEG (NEG) MG/DL Urine Blood NEG (NEG) Urine Nitrite NEG (NEG) Ur Leukocyte Esterase NEG (NEG) COVID-19 (RICA) (Negative) COVID-19 Clin Com ECG Data Attestation: I personally reviewed and interpreted this ECG as follows: ECG interpretation date: 03/20/21 Prior ECG tracings: available for review Interpretation: normal sinus rhythm, HR 77 bpm, normal OH interval, NO ST segment elevations or depressions Discharge Plan Discharge Clinical Impression: Fracture, humerus closed Qualifiers: Encounter type: initial encounter Humerus Location: surgical neck Fracture morphology: unspecified fracture morphology Fracture alignment: displaced Laterality: left Qualified Code(s): S42.212A - Unspecified displaced fracture of surgical neck of left humerus, initial encounter for closed fracture Fall down stairs Qualifiers: Encounter type: initial encounter Qualified Code(s): W10.8XXA - Fall (on) (from) other stairs and steps, initial encounter Instructions: Arm Fracture in Adults (ED), Shoulder Immobilizer (ED) Additional Instructions: X-ray of your left upper arm showed the bone is broken Treatment is immobilization with a sling and pain control Recommend Tylenol 975 mg every 6 hours Take oxycodone 5 mg every 6 hours as needed for severe pain Follow up with Orthopedics - name and number below Follow up with your primary care provider in 1 week Prescriptions: New oxycodone 5 mg tablet 5 mg PO Q6H PRN (Reason: pain) Qty: 8 RF: 0 No Action gabapentin 300 mg capsule 300 mg PO QID RF: 0 atorvastatin 40 mg tablet 40 mg PO DAILY RF: 0 metformin 500 mg tablet 500 mg PO BID RF: 0 metoprolol succinate 50 mg tablet extended release 24 hr 50 mg PO DAILY RF: 0 lisinopril 20 mg tablet 20 mg PO DAILY RF: 0 cyanocobalamin (vitamin B-12) [Vitamin B-12] 1,000 mcg tablet 1,000 mcg PO DAILY RF: 0 risperidone 0.25 mg tablet 0.25 mg PO BEDTIME RF: 0 citalopram 20 mg tablet 20 mg PO DAILY RF: 0 lorazepam 0.5 mg tablet 0.5 tab PO BEDTIME RF: 0 divalproex 500 mg tablet extended release 24 hr 1,000 mg PO BEDTIME RF: 0 omeprazole 20 mg capsule,delayed release(DR/EC) 20 mg PO DAILY RF: 0 zolpidem 5 mg tablet 5 mg PO BEDTIME PRN (Reason: insomnia) RF: 0 Referrals: Patti Coyle PA-C [Physician Loss Prevention Investigator] - 2 days (Surgical neck displaced com minuted fracture left humerus. )
--- NOTE | 2021-03-20 17:04 | ECG_ITS ---
Test Reason : FALL Blood Pressure : / mmHG Vent. Rate : 077 BPM Atrial Rate : 077 BPM P-R Int : 142 ms QRS Dur : 094 ms QT Int : 388 ms P-R-T Axes : 074 037 077 degrees QTc Int : 439 ms Normal sinus rhythm Nonspecific ST and T wave abnormality Abnormal ECG When compared with ECG of 27-NOV-2020 03:52, No significant change was found Referred By: Adeola Saravia Electronically Signed By:CHARANJIT ANDRES
[2021-03-20 17:37] LABS: MANUAL DIFF FLAG NO
[2021-03-20 17:38] LABS: Basophils Percent Auto 0.4 % (0-2); Eosinophils Absolute Auto 0.1 X10*3/uL (0.0-0.4); Eosinophils Percent Auto 0.5 % (0-4); Hematocrit 34.8 % (42-52); Hemoglobin 12.4 g/dl (14.0-18.0); Imm Gran Abs Auto 0.05 X10*3/uL (0.00-0.03); Imm Gran Pct Auto 0.5 % (0.0-0.4); Lymphocytes Absolute Auto 0.6 X10*3/uL (1.2-4.9); Lymphocytes Percent Auto 6.2 % (20-40); Mean Corpuscular HGB Conc 35.6 g/dl (31.0-36.0); Mean Corpuscular Volume 84.3 fL (80-98); Mean Platelet Volume 12.5 fL (9.4-12.4); Monocytes Absolute Auto 0.5 X10*3/uL (0.1-1.2); Monocytes Percent Auto 4.8 % (2-11); Neutrophils Absolute Auto 8.5 X10*3/uL (2.0-8.3); Neutrophils Percent Auto 87.6 % (45-73); Platelet Count 161 X10*3/uL (160-400); Red Blood Count 4.13 X10*6/uL (4.60-5.80); Red Cell Distribution Width 14.9 % (11.0-16.0); White Blood Count 9.7 X10*3/uL (4.8-10.8)
[2021-03-20] MEDS: fentaNYL citrate/PF 100 MCG/2 ML VIAL 25 MCG IVPUSH ×2 (17:44→19:49)
[2021-03-20 18:00] LABS: COVID-19 Test Negative (Negative); IDNOW Serial# 9DD0AD1C
[2021-03-20 18:06] VITALS: BP 139/64; PULSE 73; RESP 16; O2SAT 97
[2021-03-20 18:06] LABS: Anion Gap 12 (12-20); Blood Urea Nitrogen 10 mg/dL (9-16); Calcium 8.5 mg/dL (8.4-10.2); Carbon Dioxide 26 mmol/L (22-29); Chloride 104 mmol/L (96-108); Creatinine Clr Calc Pharmacy 123.5; Estimated Glomerular Filt Rate > 60; Glucose Random 123 mg/dL (60-115); Potassium 4.4 mmol/L (3.3-5.1); Sodium 138 mmol/L (135-145)
--- NOTE | 2021-03-20 18:16 | PHA.MEDREC ---
Pharmacy Consult ? Medication Reconciliation Pharmacy has completed the medication reconciliation. Patient told me to call [facility] pharmacy for his medications. Patient was able to report most of his medications. Reports taking Ativan at bedtime up 3 tablets. Lisa Gongora, BrianD
[2021-03-20 19:25] LABS: Appearance Urine CLEAR; Color Urine YELLOW; Glucose Urine UA NEG (NEG); Leukocyte Esterase Urine NEG (NEG); Nitrite Urine NEG (NEG); PH 7.5 (5.0-8.0); Urine Blood NEG (NEG); Urine Ketones NEG (NEG); Urine Protein NEG (NEG-TRACE)
[2021-03-20] MEDS: Acetaminophen 325 MG TABLET 975 MG PO (19:49)
[2021-03-20] MEDS: Divalproex Sodium ER 500 MG TAB.ER.24H 1000 MG PO (22:05)
[2021-03-20] MEDS: oxyCODONE HCl Immed Release 5 MG TABLET PO (22:06)
[2021-03-20] MEDS: LORazepam 0.5 MG TABLET 0.25 MG PO (22:06)
[2021-03-20] MEDS: Gabapentin 300 MG CAPSULE PO (22:06)
[2021-03-20] MEDS: risperiDONE 0.25 MG TABLET PO (22:06)
[2021-03-20] MEDS: metFORMIN HCl 500 MG TABLET PO (22:06)
--- NOTE | 2021-03-20 22:15 | PC.NURSE ---
Patient moved to hospital bed for comfort. PT eval in morning.
[2021-03-21] VITALS (7 sets, daily range): BP systolic 98–112; BP diastolic 47–50; PULSE 75–79; RESP 15–18; TEMP 36.6; O2SAT 90–97
--- NOTE | 2021-03-21 03:47 | PC.NURSE ---
pt is sleeping no sign of distress at this time.
--- NOTE | 2021-03-21 05:02 | PC.NURSE ---
Pt is sleeping at this time. No sign of distress.
[2021-03-21] MEDS: oxyCODONE HCl Immed Release 5 MG TABLET PO ×2 (07:23→12:59)
--- NOTE | 2021-03-21 07:30 | PC.NURSE ---
Assumed care of patient. Pt is in bed c/o left upper extremity pain. Pt has not been medicated since 10pm last night. MD made aware and put in PRN orders. Pt medicated and is sitting up in bed eating breakfast, waiting for a PT consult.
[2021-03-21] MEDS: Escitalopram Oxalate 10 MG TABLET PO (08:23)
[2021-03-21] MEDS: Metoprolol Succinate ER 50 MG TAB.ER.24H PO (08:23)
[2021-03-21] MEDS: Gabapentin 300 MG CAPSULE PO ×3 (08:23→17:07)
[2021-03-21] MEDS: lisinopriL 20 MG TABLET PO (08:24)
[2021-03-21] MEDS: Atorvastatin Calcium 40 MG TABLET PO (08:24)
[2021-03-21] MEDS: Omeprazole 20 MG CAPSULE.DR PO (08:24)
[2021-03-21] MEDS: Cyanocobalamin (Vitamin B-12) 1,000 MCG TABLET 1000 MCG PO (08:24)
[2021-03-21] MEDS: metFORMIN HCl 500 MG TABLET PO (08:24)
[2021-03-21] MEDS: Acetaminophen 325 MG TABLET 975 MG PO ×2 (08:25→15:06)
--- NOTE | 2021-03-21 15:18 | PC.NURSE ---
Case management continues to work on short term rehab placement for the patient. Referrals have been sent out. Waiting for to come to visit. Pt has been medicated for pain throughout the day and has been eating and tolerating PO intake. Pt is calm and resting comfortably at this time.
--- NOTE | 2021-03-21 15:40 | MHC.CM.ED ---
Received case management consult overnight. Patient came to the ER due to a fall. Patient lives with his , has a history of dementia. Physical therapy eval completed. Short term rehab is recommended. List of facilities provided to and son. [facility] is able to offer a bed. Patient can leave at 530pm. will come to ER with copy of [place] vaccine and HCP. [facility] booked. Med [facility] with chart. Patient, Torres Broderick RN and Jason GRUBBS aware. Continue to monitor for d/c needs.
--- NOTE | 2021-03-21 16:30 | MHC.CM.ED ---
Patient's and daughter in law at bedside. HCP completed. signed and witnessed with patient. Original given to patient. Copy placed in chart. Continue to monitor for d/c needs.
== END 2021-03-21 18:26 | disposition skilled nursing facility (03) ==
PROVIDERS: Physician Assistant; Emergency Provider Emergency Medicine Emergency Medical Services
DX: S42.212A Unspecified displaced fracture of surgical neck of left humerus, initial encounter for closed fracture (principal); M79.602 Pain in left arm; G44.309 Post-traumatic headache, unspecified, not intractable; M54.2 Cervicalgia; W10.9XXA Fall (on) (from) unspecified stairs and steps, initial encounter; Y93.9 Activity, unspecified; Y92.9 Unspecified place or not applicable; Y99.9 Unspecified external cause status; Z20.822 Contact with and (suspected) exposure to COVID-19; Z79.899 Other long term (current) drug therapy
CPT/HCPCS: 36415; 70450; 72125; 73030; 73060; 73080; 80048; 81003; 85025; 87635; 93005; 96374; 96376; 97162; 99285; J3010

== ENCOUNTER 2021-04-10 08:09 | Outpatient (REF) | payer MEDICARE, SELFPAY ==
--- NOTE | ~2021-04-10 | XR_ITS ---
EXAMINATION: XR SHOULDER, LEFT CLINICAL INFORMATION: Pain. COMPARISON: Radiograph dated 03/20/2021. TECHNIQUE: AP neutral and scapular Y views of the left shoulder are submitted. FINDINGS: There is subluxation of the left glenohumeral joint. There is stable alignment of a comminuted fracture of the surgical neck of the left humerus. There is apex lateral angulation of the fracture. No new callus formation is seen. The acromioclavicular and coracoclavicular intervals are normal. No soft tissue gas or foreign body is seen. There is no left pneumothorax. XR/XR shoulder LT min 2V IMPRESSION: There is stable alignment of a comminuted, angulated fracture of the left humeral neck. No new callus formation is seen. There is stable subluxation of the left glenohumeral joint.
== END 2021-04-10 08:10 | disposition home or self-care (01) ==
LOC: HO.HOSX 08:09
PROVIDERS: Visit Provider Physician Assistant
DX: S42.202D Unspecified fracture of upper end of left humerus, subsequent encounter for fracture with routine healing (principal)
CPT/HCPCS: 73030; 99202

== ENCOUNTER 2021-05-22 09:54 | Outpatient (REF) | payer MEDICARE, SELFPAY ==
--- NOTE | ~2021-05-22 | XR_ITS ---
EXAMINATION: XR SHOULDER, LEFT CLINICAL INFORMATION: Left shoulder pain COMPARISON: None TECHNIQUE: Two views of the left shoulder. FINDINGS: There is a left humeral neck fracture again noted with increased callus formation. Unchanged alignment with impaction at the fracture site. The glenohumeral joint is well aligned. The acromioclavicular joint is intact. The visualized lung is clear. The visualized ribs are intact. XR/XR shoulder LT min 2V IMPRESSION: Continued healing of a proximal left humeral fracture with increased callus formation. Unchanged alignment.
== END 2021-05-22 09:55 | disposition home or self-care (01) ==
LOC: HO.HOSX 09:54
PROVIDERS: Visit Provider Physician Assistant
DX: S42.202D Unspecified fracture of upper end of left humerus, subsequent encounter for fracture with routine healing (principal)
CPT/HCPCS: 73030; 99212

== ENCOUNTER 2021-07-17 11:02 | Outpatient (REF) | payer MEDICARE, SELFPAY | END 2021-07-17 11:03 | disposition home or self-care (01) | LOC: HO.HOSX 11:02 | PROVIDERS: Visit Provider Physician Assistant | DX: Z13.89 Encounter for screening for other disorder (principal) ==

== ENCOUNTER 2021-11-19 18:08 | Emergency (ER) | payer MEDICARE, SELFPAY ==
--- NOTE | ~2021-11-19 | CT_ITS ---
EXAMINATION: CT HEAD WITHOUT CONTRAST CT CERVICAL SPINE WITHOUT CONTRAST CLINICAL INFORMATION: Syncope. Fall through glass window. COMPARISON: Most recent CT head and cervical spine dated 03/20/2021. TECHNIQUE: Contiguous axial imaging was performed from the skull base to vertex without intravenous administration of contrast. Contiguous axial CT images of the cervical spine were obtained without contrast. Sagittal and coronal reformats were provided and reviewed. This CT examination was performed using dose optimization techniques as appropriate, variously including the following: *Automated exposure control. *Adjustment of mA and/or kV according to patient size (this includes techniques or standardized protocols for targeted exams where dose is matched to indication/reason for exam; i.e. extremities or head). *Use of iterative reconstruction technique. DLP: 1307 mGy-cm FINDINGS: HEAD: There is no evidence of acute intracranial hemorrhage or territorial infarction. No abnormal mass effect or midline shift is seen. [id number] matter differentiation is well preserved. No extra-axial fluid collections are identified. Mild prominence of the ventricles and sulci, unchanged. The osseous structures and soft tissues are normal. The mastoid air cells and visualized portions of the paranasal sinuses are well aerated. CERVICAL SPINE: Straightening of the normal cervical lordosis, which may be positional or related to muscular spasm. No acute fracture or subluxation. No loss of vertebral body height. Loss of intervertebral disc height with endplate osteophytes, most prominent at C5 through C7 where there is partial osseous bridging, unchanged. Severe multilevel bilateral facet arthropathy. No lytic or blastic osseous lesion. Unremarkable prevertebral soft tissues. No abnormal soft tissue mass or fluid collection. Thyroid within normal limits. Prominent multilevel central canal and bilateral neural foraminal stenosis appears unchanged when compared to the prior examination. CT/CT cervical spine wo con IMPRESSION: HEAD: No acute intracranial hemorrhage or mass effect. Mild diffuse atrophy, unchanged. CERVICAL SPINE: No acute fracture or subluxation. Multilevel degenerative disc disease with prominent bilateral facet arthropathy causing multilevel central canal and bilateral neural foraminal stenosis, unchanged.
--- NOTE | ~2021-11-19 | XR_ITS ---
EXAMINATION: XR FOREARM, RIGHT CLINICAL INFORMATION: Rule out glass. COMPARISON: None TECHNIQUE: AP and lateral views of the right forearm were obtained. FINDINGS: The radius and ulna are intact is no acute fracture dislocation. The soft tissues are unremarkable. There is no radiopaque foreign body. XR/XR forearm RT 2V IMPRESSION: No acute osseous abnormality. No radiopaque foreign body.
--- NOTE | ~2021-11-19 | XR_ITS ---
EXAMINATION: XR THORACOLUMBAR SPINE CLINICAL INFORMATION: Rule out glass. COMPARISON: None TECHNIQUE: PA and lateral views of the thoracic spine were obtained. FINDINGS: Mild thoracic dextro scoliosis is seen with apex at T5-T6. Mild increased thoracic kyphosis and spinal alignment is seen. The vertebral bodies are intact. Mild degenerative disc disease is seen inferiorly. The soft tissues are unremarkable. XR/XR thoracic spine 2V IMPRESSION: Mild thoracic dextroscoliosis and mild degenerative changes without acute abnormality.
--- NOTE | 2021-11-19 18:18 | ECG_ITS ---
Test Reason : FALL Blood Pressure : / mmHG Vent. Rate : 072 BPM Atrial Rate : 072 BPM P-R Int : 146 ms QRS Dur : 098 ms QT Int : 390 ms P-R-T Axes : 076 058 093 degrees QTc Int : 427 ms Normal sinus rhythm Nonspecific T wave abnormality Abnormal ECG When compared with ECG of 20-MAR-2021 17:16, No significant change was found Referred By: Chanell Hutchins Electronically Signed By:RAJWINDER STEWART
[2021-11-19 18:21] VITALS: BP 120/90; BP 147/69; PULSE 71; PULSE 78; RESP 16; O2SAT 100; O2SAT 98; BMI 31.8
--- NOTE | 2021-11-19 18:27 | ED.GENADULT ---
HPI - General Adult General Chief complaint: Fall Stated complaint: FALL THROUGH GLASS DOOR W/MULTI LAC, S/P DIZZINESS Time Seen by Provider: 11/19/21 18:18 Source: patient and EMS Mode of arrival: EMS Limitations: other (Previous CVA) History of Present Illness HPI narrative: Patient comes to the emergency room via EMS. Earlier today, patient was at home, patient states that he was dizzy, fell through a glass door. Patient hit his head, did not lose consciousness. Patient denies headache or neck pain. However, patient has sustained several deep lacerations to the right arm and his back. Related Data Home Medications Medication Instructions Recorded Confirmed atorvastatin 40 mg tablet 40 mg PO DAILY 11/27/20 03/20/21 citalopram 20 mg tablet 20 mg PO DAILY 11/27/20 03/20/21 cyanocobalamin (vitamin B-12) 1,000 mcg PO DAILY 11/27/20 03/20/21 1,000 mcg tablet (Vitamin B-12) divalproex 500 mg tablet,extended 1,000 mg PO BEDTIME 11/27/20 03/20/21 release 24 hr lisinopril 20 mg tablet 20 mg PO DAILY 11/27/20 03/20/21 lorazepam 0.5 mg tablet 0.5 tab PO BEDTIME 11/27/20 03/20/21 metformin 500 mg tablet 500 mg PO BID 11/27/20 03/20/21 metoprolol succinate 50 mg 50 mg PO DAILY 11/27/20 03/20/21 tablet,extended release 24 hr omeprazole 20 mg capsule,delayed 20 mg PO DAILY 11/27/20 03/20/21 release risperidone 0.25 mg tablet 0.25 mg PO BEDTIME 11/27/20 03/20/21 zolpidem 5 mg tablet 5 mg PO BEDTIME PRN 11/27/20 03/20/21 gabapentin 300 mg capsule 300 mg PO QID 03/20/21 03/20/21 Previous Rx's Medication Instructions Recorded oxycodone 5 mg tablet 5 mg PO Q6H PRN #8 tab 03/21/21 Allergies Allergy/AdvReac Type Severity Reaction Status Date / Time No Known Allergies Allergy Verified 11/19/21 18:20 [No Known Allergies*] Review of Systems Review of Systems: Constitutional : No Weight loss, No Fever, No Chills, No Night Sweats, No Fatigue, No Malaise ENT/Mouth : No Hearing loss, No Ear Pain, No Nasal Congestion, No Sinus Pain, No Hoarseness, No sore throat, No Rhinorrhea, No Swallowing Difficulty Eyes: No Eye Pain, No Swelling, No Redness, No Foreign Body, No Discharge, No Vision Changes Cardiovascular : No Chest Pain, No SOB, No Dyspnea on Exertion, No Orthopnea, No Edema, No Palpitations Respiratory : No Cough, No Sputum, No Wheezing, No Smoke Exposure, No Dyspnea Gastrointestinal : No Nausea, No Vomiting, No Diarrhea, No Constipation, No abdominal Pain, No Hematochezia, No Melena Genitourinary : no irregular bleeding, No Dysuria, No Urinary Frequency, No Hematuria, No Urinary Incontinence, No Urgency, No Flank Pain, No Urinary Flow Changes, No Hesitancy Musculoskeletal : No joint pain, No Myalgias, No Joint Swelling Skin : Complaining of multiple deep lacerations Neuro : No Weakness, No Numbness, No Paresthesias, No Loss of Consciousness, complaining of an episode of Dizziness, No Headache Psych : No Anxiety/Panic, No Depression, No SI/HI/AH/VH, No Social Issues, Heme/Lymph: No Bruising, No Bleeding,No Lymphadenopathy Endocrine : No Polyuria, No Polydipsia, No Temperature Intolerance [facility] Past Medical History Medical History CVA (cerebral vascular accident) Dementia HTN (hypertension) Hyperlipidemia Myocardial infarct, old NIDDY (non-insulin dependent diabetes mellitus in young) Social History Social History Alcohol intake: unknown Patient Tobacco Use Status: Tobacco use Unknown Advance Directives: Yes Advance Directives on File: Yes Advance Directives Date on File: 03/21/21 service: No Current occupational status: retired Current occupation: rt handed Physical Exam ED Vital Signs: Vital Signs - 24 hr 11/19/21 18:21 11/19/21 21:16 11/19/21 22:30 Temperature 98.7 F Pulse Rate 78 65 83 Respiratory Rate 16 16 Blood Pressure 147/69 H 146/68 H 173/59 H Pulse Oximetry 100 97 11/19/21 22:34 11/19/21 23:45 11/20/21 01:16 Temperature Pulse Rate 83 78 80 Respiratory Rate 12 Blood Pressure 140/62 H 145/75 H 178/90 H Pulse Oximetry 97 11/20/21 01:18 11/20/21 01:19 Temperature Pulse Rate 81 80 Respiratory Rate Blood Pressure 161/72 H 155/69 H Pulse Oximetry BMI result Body Mass Index 31.8 Const Other: Appearance: Alert. Oriented X3. No acute distress. Eyes: Pupils equal, round and reactive to light. ENT: Pharynx normal. Neck: Normal inspection. Neck supple. No lymph nodes noted. No crepitus CVS: Normal heart rate and rhythm. Pulses normal. Normal S1 and S2 Respiratory: No respiratory distress. Breath sounds normal. No Wheezing. No rales Abdomen: Soft and nontender. No rigidity. No distention. Skin: Skin warm and dry. Normal skin color. Normal skin turgor. Extremities: No lower extremity edema. No Lacerations. No Rash Neuro: Oriented X 3. No motor deficit. No sensory deficit. Moving all extremities. No slurred speech. CN 2 through 12 grossly intact Psych: calm, cooperative, normal affect Course Course Course Narrative: Patient had several lacerations in the forearm and in the back. In total patient needed 29 external sutures, plus multiple internal sutures forearm CT scan of head and neck do not show any acute abnormalities. Patient's orthostatics are positive. Patient receiving IV fluids, when patient stood up he became lightheaded and his blood pressure dropped nearly 20 points After IV fluids, orthostatic vitals were repeated. Patient no longer dizzy. Procedures Laceration Laceration 1: Site: upper extremity Side (If applicable): right Size (cm): 6 Description: stellate and flap Depth: simple, single layer Local Anesthetic: lidocaine 2% Amount of anesthesia used (mL): 7 Pre-repair: wound explored and irrigated extensively Skin layer closed with: nylon Size (cm): 5-0 Number of sutures: 8 Laceration 2: Site: upper extremity Side (If applicable): right Size (cm): 5 Description: stellate, flap and irregular Depth: simple, single layer Local Anesthetic: lidocaine 2% Amount of anesthesia used (mL): 6 Pre-repair: wound explored and irrigated extensively Skin layer closed with: nylon Size (cm): 3-0 Number of sutures: 4 Laceration 3: Site: upper extremity Side (If applicable): right Size (cm): 2 Description: linear Depth: simple, single layer Local Anesthetic: lidocaine 2% Amount of anesthesia used (mL): 2 Pre-repair: wound explored and irrigated extensively Skin layer closed with: nylon Size (cm): 3-0 Number of sutures: 4 Laceration 4: Site: other (Back) Size (cm): 8 Description: stellate, flap, irregular and contaminated (Long piece of glass was pulled out) Depth: simple, single layer and involves muscle layer Local Anesthetic: lidocaine 2% Amount of anesthesia used (mL): 15 Pre-repair: wound explored, irrigated extensively and deep structures intact Skin layer closed with: nylon Size (cm): 3-0 Number of sutures: 11 Technique: simple, interrupted Subcutaneous layer closed with: vicryl Size: 3-0 Number of sutures: 5 Technique: simple, interrupted Medical Decision Making Lab Data Result diagrams: 11/19/21 19:02 11/19/21 19:02 Labs: Lab Results 11/19/21 11/19/21 11/19/21 Range/Units 19:02 19:02 19:02 WBC 4.7 L (4.8-10.8) X10*3/uL RBC 4.54 L (4.60-5.80) X10*6/uL Hgb 13.4 L (14.0-18.0) g/dl Hct 38.3 L (42.0-52.0) % MCV 84.4 (80.0-98.0) fL MCH 29.5 (27.0-33.0) pg MCHC 35.0 (31.0-36.0) g/dl RDW 14.6 (11.0-16.0) % Plt Count 107 L (160-400) X10*3/uL MPV 11.3 (9.4-12.4) fL Immature Gran % (Auto) 0.6 H (0.0-0.4) % Neut % (Auto) 67.2 (45-73) % Lymph % (Auto) 20.9 (20-40) % Stanley % (Auto) 10.3 (2-11) % Eos % (Auto) 0.4 (0-4) % Baso % (Auto) 0.6 (0-2) % Lymph # (Auto) 1.0 L (1.2-4.9) X10*3/uL Stanley # (Auto) 0.5 (0.1-1.2) X10*3/uL Eos # (Auto) 0.0 (0.0-0.4) X10*3/uL Baso # (Auto) 0.0 (0.0-0.2) X10*3/uL Abs Immat Gran (auto) 0.03 (0.00-0.03) X10*3/uL Absolute Neuts (auto) 3.1 (2.0-8.3) x10*3/uL Absolute Nucleated RBC 0.000 (0.0-0.012) X10*3/uL Nucleated RBC % (auto) 0.0 (0.0-0.2) /100WBC PT 12.0 (9.9-13.0) SEC INR 1.1 (0.9-1.1) Sodium 139 (135-145) mmol/L Potassium 3.9 (3.3-5.1) mmol/L Chloride 104 (96-108) mmol/L Carbon Dioxide 25 (22-29) mmol/L Anion Gap 14 (12-20) BUN 11 (9-16) mg/dL Creatinine 0.72 (0.5-1.4) mg/dL Estim Creat Clear Calc 111.9 Estimated GFR > 60 Random Glucose 134 H (60-115) mg/dL Calcium 9.1 D (8.4-10.2) mg/dL Magnesium 1.9 (1.6-2.6) mg/dL Total Bilirubin 0.9 (0.0-1.0) mg/dL Direct Bilirubin 0.4 (0.0-0.5) mg/dL AST 17 D (5-37) U/L ALT 16 (0-40) U/L Alkaline Phosphatase 75 D (39-117) U/L Troponin I High Sens (<3.5-35.0) ng/L Total Protein 5.8 L (6.5-8.0) g/dL Albumin 3.6 (3.5-5.0) g/dL Urine Color Urine Appearance Urine pH (5.0-8.0) Ur Specific [place] (1.005-1.025) Urine Protein (NEG-TRACE) MG/DL Urine Glucose (UA) (NEG) MG/DL Urine Ketones (NEG) MG/DL Urine Blood (NEG) Urine Nitrite (NEG) Ur Leukocyte Esterase (NEG) 11/19/21 11/19/21 Range/Units 19:02 19:02 WBC (4.8-10.8) X10*3/uL RBC (4.60-5.80) X10*6/uL Hgb (14.0-18.0) g/dl Hct (42.0-52.0) % MCV (80.0-98.0) fL MCH (27.0-33.0) pg MCHC (31.0-36.0) g/dl RDW (11.0-16.0) % Plt Count (160-400) X10*3/uL MPV (9.4-12.4) fL Immature Gran % (Auto) (0.0-0.4) % Neut % (Auto) (45-73) % Lymph % (Auto) (20-40) % Stanley % (Auto) (2-11) % Eos % (Auto) (0-4) % Baso % (Auto) (0-2) % Lymph # (Auto) (1.2-4.9) X10*3/uL Stanley # (Auto) (0.1-1.2) X10*3/uL Eos # (Auto) (0.0-0.4) X10*3/uL Baso # (Auto) (0.0-0.2) X10*3/uL Abs Immat Gran (auto) (0.00-0.03) X10*3/uL Absolute Neuts (auto) (2.0-8.3) x10*3/uL Absolute Nucleated RBC (0.0-0.012) X10*3/uL Nucleated RBC % (auto) (0.0-0.2) /100WBC PT (9.9-13.0) SEC INR (0.9-1.1) Sodium (135-145) mmol/L Potassium (3.3-5.1) mmol/L Chloride (96-108) mmol/L Carbon Dioxide (22-29) mmol/L Anion Gap (12-20) BUN (9-16) mg/dL Creatinine (0.5-1.4) mg/dL Estim Creat Clear Calc Estimated GFR Random Glucose (60-115) mg/dL Calcium (8.4-10.2) mg/dL Magnesium (1.6-2.6) mg/dL Total Bilirubin (0.0-1.0) mg/dL Direct Bilirubin (0.0-0.5) mg/dL AST (5-37) U/L ALT (0-40) U/L Alkaline Phosphatase (39-117) U/L Troponin I High Sens 19.0 (<3.5-35.0) ng/L Total Protein (6.5-8.0) g/dL Albumin (3.5-5.0) g/dL Urine Color YELLOW Urine Appearance CLEAR Urine pH 5.5 (5.0-8.0) Ur Specific [place] <= 1.005 (1.005-1.025) Urine Protein NEG (NEG-TRACE) MG/DL Urine Glucose (UA) NEG (NEG) MG/DL Urine Ketones NEG (NEG) MG/DL Urine Blood NEG (NEG) Urine Nitrite NEG (NEG) Ur Leukocyte Esterase NEG (NEG) Imaging Data Head and cervical spine CT: Radiologist's impression: HEAD: There is no evidence of acute intracranial hemorrhage or territorial infarction. No abnormal mass effect or midline shift is seen. [id number] matter differentiation is well preserved. No extra-axial fluid collections are identified. Mild prominence of the ventricles and sulci, unchanged. The osseous structures and soft tissues are normal. The mastoid air cells and visualized portions of the paranasal sinuses are well aerated. CERVICAL SPINE: Straightening of the normal cervical lordosis, which may be positional or related to muscular spasm. No acute fracture or subluxation. No loss of vertebral body height. Loss of intervertebral disc height with endplate osteophytes, most prominent at C5 through C7 where there is partial osseous bridging, unchanged. Severe multilevel bilateral facet arthropathy. No lytic or blastic osseous lesion. Unremarkable prevertebral soft tissues. No abnormal soft tissue mass or fluid collection. Thyroid within normal limits. Prominent multilevel central canal and bilateral neural foraminal stenosis appears unchanged when compared to the prior examination. ? CT/CT cervical spine wo con IMPRESSION: HEAD: No acute intracranial hemorrhage or mass effect. Mild diffuse atrophy, unchanged. ? CERVICAL SPINE: No acute fracture or subluxation. Multilevel degenerative disc disease with prominent bilateral facet arthropathy causing multilevel central canal and bilateral neural foraminal stenosis, unchanged. ECG Data Attestation: I personally reviewed and interpreted this ECG as follows: (Normal sinus rhythm, heart rate [address] segment depression or elevation, no T-wave inversion, QTC 427) Discharge Plan Discharge Clinical Impression: Orthostatic hypotension, Fall, Laceration of skin of forearm Patient Disposition: Home, Self-Care Instructions: Laceration (ED), Hypotension (ED) Additional Instructions: Your sutures need to be removed in 7-10 days. If you experience any significant pain, pus drainage, redness, fever chills, please return to the emergency room. Otherwise, please follow-up with your primary care physician tomorrow. If you have any worsening or new symptoms, please return to the emergency room or call 911 Prescriptions: No Action gabapentin 300 mg capsule 300 mg PO QID 0RF oxycodone 5 mg tablet 5 mg PO Q6H PRN (Reason: pain) Qty: 8 0RF atorvastatin 40 mg tablet 40 mg PO DAILY 0RF metformin 500 mg tablet 500 mg PO BID 0RF metoprolol succinate 50 mg tablet extended release 24 hr 50 mg PO DAILY 0RF lisinopril 20 mg tablet 20 mg PO DAILY 0RF cyanocobalamin (vitamin B-12) [Vitamin B-12] 1,000 mcg tablet 1,000 mcg PO DAILY 0RF risperidone 0.25 mg tablet 0.25 mg PO BEDTIME 0RF citalopram 20 mg tablet 20 mg PO DAILY 0RF lorazepam 0.5 mg tablet 0.5 tab PO BEDTIME 0RF Label Comments: Takes up to 3 tablets at night divalproex 500 mg tablet extended release 24 hr 1,000 mg PO BEDTIME 0RF omeprazole 20 mg capsule,delayed release(DR/EC) 20 mg PO DAILY 0RF zolpidem 5 mg tablet 5 mg PO BEDTIME PRN (Reason: insomnia) 0RF
[2021-11-19 19:10] LABS: MANUAL DIFF FLAG NO
[2021-11-19 19:25] LABS: Basophils Percent Auto 0.6 % (0-2); Eosinophils Percent Auto 0.4 % (0-4); Hematocrit 38.3 % (42.0-52.0); Hemoglobin 13.4 g/dl (14.0-18.0); Imm Gran Abs Auto 0.03 X10*3/uL (0.00-0.03); Imm Gran Pct Auto 0.6 % (0.0-0.4); Lymphocytes Percent Auto 20.9 % (20-40); Mean Corpuscular Hemoglobin 29.5 pg (27.0-33.0); Mean Corpuscular Volume 84.4 fL (80.0-98.0); Mean Platelet Volume 11.3 fL (9.4-12.4); Monocytes Absolute Auto 0.5 X10*3/uL (0.1-1.2); Monocytes Percent Auto 10.3 % (2-11); Neutrophils Absolute Auto 3.1 x10*3/uL (2.0-8.3); Neutrophils Percent Auto 67.2 % (45-73); Platelet Count 107 X10*3/uL (160-400); Red Blood Count 4.54 X10*6/uL (4.60-5.80); Red Cell Distribution Width 14.6 % (11.0-16.0); White Blood Count 4.7 X10*3/uL (4.8-10.8)
[2021-11-19 19:35] LABS: Appearance Urine CLEAR; Color Urine YELLOW; Glucose Urine UA NEG (NEG); INTERNATIONAL NORM RATIO 1.1 (0.9-1.1); Leukocyte Esterase Urine NEG (NEG); Nitrite Urine NEG (NEG); PH 5.5 (5.0-8.0); Specific Gravity - Urine <= 1.005 (1.005-1.025); Urine Blood NEG (NEG); Urine Ketones NEG (NEG); Urine Protein NEG (NEG-TRACE)
[2021-11-19 19:37] LABS: Alanine Aminotransferase 16 U/L (0-40); Albumin Level 3.6 g/dL (3.5-5.0); Alkaline Phosphatase 75 U/L (39-117); Anion Gap 14 (12-20); Aspartate Amino Transferase 17 U/L (5-37); Bilirubin Direct 0.4 mg/dL (0.0-0.5); Bilirubin Total 0.9 mg/dL (0.0-1.0); Blood Urea Nitrogen 11 mg/dL (9-16); Calcium 9.1 mg/dL (8.4-10.2); Carbon Dioxide 25 mmol/L (22-29); Chloride 104 mmol/L (96-108); Creatinine Clr Calc Pharmacy 111.9; Estimated Glomerular Filt Rate > 60; Glucose Random 134 mg/dL (60-115); Magnesium 1.9 mg/dL (1.6-2.6); Potassium 3.9 mmol/L (3.3-5.1); Sodium 139 mmol/L (135-145); Total Protein 5.8 g/dL (6.5-8.0)
[2021-11-19] MEDS: traMADoL HCL 50 MG TABLET PO (20:30)
[2021-11-19] MEDS: Lidocaine HCl 2% PF/Epi 1:200 20 ML VIAL 40 ML INFILTRATI (21:13)
[2021-11-19 21:16] VITALS: BP 146/68; PULSE 65; RESP 16; TEMP 37.1; O2SAT 97
[2021-11-19 22:30] VITALS: BP 152/62; BP 173/59; PULSE 79; PULSE 83
[2021-11-19 22:34] VITALS: BP 140/62; PULSE 83
[2021-11-19 23:45] VITALS: BP 145/75; PULSE 78; RESP 12; O2SAT 97
[2021-11-20 01:16] VITALS: BP 178/90; PULSE 80
[2021-11-20 01:18] VITALS: BP 161/72; PULSE 81
[2021-11-20 01:19] VITALS: BP 155/69; PULSE 80
[2021-11-20 02:25] VITALS: BP 149/78; PULSE 84; RESP 12; O2SAT 97
== END 2021-11-20 02:26 | disposition home or self-care (01) ==
PROVIDERS: Emergency Provider Emergency Medicine; PCP Internal Medicine
DX: S51.811A Laceration without foreign body of right forearm, initial encounter (principal); S31.020A Laceration with foreign body of lower back and pelvis without penetration into retroperitoneum, initial encounter; S10.91XA Abrasion of unspecified part of neck, initial encounter; R55 Syncope and collapse; R42 Dizziness and giddiness; W25.XXXA Contact with sharp glass, initial encounter; W45.8XXA Other foreign body or object entering through skin, initial encounter; Y93.9 Activity, unspecified; Y92.9 Unspecified place or not applicable; Y99.9 Unspecified external cause status; Z79.899 Other long term (current) drug therapy; Z86.73 Personal history of transient ischemic attack (TIA), and cerebral infarction without residual deficits
CPT/HCPCS: 12004; 12005; 12006; 36415; 70450; 72070; 72125; 73090; 80048; 80076; 81003; 83735; 84484; 85025; 85610; 90471; 93005; 96360; 99284

== ENCOUNTER 2021-11-22 16:08 | Observation (INO) | payer MEDICARE, SELFPAY ==
--- NOTE | ~2021-11-22 | XR_ITS ---
EXAMINATION: XR CHEST CLINICAL INFORMATION: Rib fracture COMPARISON: Previous chest CT from earlier the same day chest x-ray from yesterday TECHNIQUE: Frontal view of the chest was obtained. FINDINGS: The cardiac and mediastinal contours are stable. The lungs are clear. There is no pleural effusion or pneumothorax. Right posterior lower rib fractures seen by chest CT are not well appreciated by x-ray. XR/XR chest 1V IMPRESSION: No evidence for acute disease in the chest.
--- NOTE | ~2021-11-22 | CT_ITS ---
EXAMINATION: CT HEAD WITHOUT CONTRAST (STROKE PROTOCOL) CLINICAL INFORMATION: Stroke protocol. Acute right-sided weakness COMPARISON: Previous head CT most recent 11/19/2021 TECHNIQUE: Contiguous axial imaging was performed from the skull base to vertex without intravenous administration of contrast. This CT examination was performed using dose optimization techniques as appropriate, variously including the following: *Automated exposure control *Adjustment of mA and/or kV according to patient size (this includes techniques or standardized protocols for targeted exams where dose is matched to indication/reason for exam; i.e. extremities or head) *Use of iterative reconstruction technique DLP: 841 mGy-cm FINDINGS: There is no evidence of an extra-axial collection. There is no evidence of intra-axial or extra-axial hemorrhage. The ventricles and extra-axial CSF spaces are slightly prominent but similar to previous exams. Valladares-white matter differentiation is normal. No mass, mass effect or infarct is seen. Review of bone windows is normal. No skull fracture is seen. There are mild inflammatory changes in the maxillary sinuses. Visualized paranasal sinuses are otherwise clear. CT/CT head for stroke IMPRESSION: No acute findings. Mild prominence of the ventricles and extra-axial CSF spaces similar to previous exams. This critical result was discussed with Dr. Keene at 1630 hours on 11/22/2021. It was ascertained that the content and urgency of the report was understood at the time of direct communication.
--- NOTE | ~2021-11-22 | CT_ITS ---
EXAMINATION: CT CERVICAL SPINE WITHOUT CONTRAST CLINICAL INFORMATION: Status post fall. COMPARISON: CT scan of the head 11/22/2021. TECHNIQUE: [employer] images were obtained. CT imaging of the cervical spine was performed without contrast. Data was reformatted into multiplanar images at the acquisition station. This CT examination was performed using dose optimization techniques as appropriate, variously including the following: *Automated exposure control *Adjustment of mA and/or kV according to patient size (this includes techniques or standardized protocols for targeted exams where dose is matched to indication/reason for exam; i.e. extremities or head) *Use of iterative reconstruction technique DLP: 1054 mGy-cm FINDINGS: Bridging bone fuses the C5-C7 vertebra. There is slight anterolisthesis of C7 on T1 that appears to be related to advanced facet degenerative changes at this level. Alignment is otherwise normal. No evidence of acute fracture. No abnormal prevertebral soft tissue swelling. There is loss of intervertebral disc height with associated sclerotic degenerative endplate changes and hypertrophic disc osteophyte spurring at C7-T1 and T1-T2. There is also advanced degenerative arthrosis at the atlantodental joint with associated hypertrophic spurring of the anterior C1 arch and the odontoid tip. Canal patency is not well assessed on this examination due to inherent limitations of CT without intrathecal contrast. There is at least mild canal stenosis at multiple levels. Uncovertebral joint spurring and conjunction with facet degenerative change causes moderate to severe neuroforaminal encroachment at multiple levels. Soft tissues of the neck are unremarkable. Lung apices are clear. CT/CT cervical spine wo con IMPRESSION: No evidence of acute fracture and no post matter spinal subluxation. There is advanced multilevel degenerative spondylosis of the cervical spine. Bridging bone fuses the C5-C7 vertebra. There is junctional spondylosis below the fused segments at the level of C7-T1 where there is slight anterolisthesis related to advanced arthrosis of the articular facet joints. Canal patency is not well assessed on this examination due to inherent limitations of CT without intrathecal contrast. There is however at least mild canal stenosis at multiple levels. If there is clinical symptoms of compressive myelopathy then a dedicated cervical spinal MRI can be obtained for better anatomic characterization of the cord and canal. Fleischner guidelines were followed.
--- NOTE | ~2021-11-22 | XR_ITS ---
EXAMINATION: XR CHEST CLINICAL INFORMATION: Follow-up rib fracture/pleural effusion COMPARISON: November 23, 2021 TECHNIQUE: AP portable view of the chest was obtained. FINDINGS: The known right-sided rib fractures are not appreciated on this plain film study. No pneumothorax or significant pleural effusion. Heart normal size. No evidence of pulmonary edema. XR/XR chest 1V IMPRESSION: No significant acute parenchymal disease. Known right rib fractures not identified on plain film study. No significant change from prior chest x-ray of November 23, 2021
--- NOTE | ~2021-11-22 | XR_ITS ---
EXAMINATION: XR CHEST CLINICAL INFORMATION: CVA COMPARISON: 11/28/20 TECHNIQUE: Upright frontal portable view of the chest was obtained. FINDINGS: Devices overlie the patient. Mild rotation toward the left. There is calcification of the aortic arch. The cardiac size Highline vasculature are within normal limits. There is no consolidation or edema. No pleural fluid or pneumothorax. Mild to moderate relative elevation the right hemidiaphragm. There are some osteophytes in the spine. XR/XR chest 1V IMPRESSION: No pneumonia or edema.
--- NOTE | ~2021-11-22 | CT_ITS ---
EXAMINATION: CT CHEST WITHOUT CONTRAST CLINICAL INFORMATION: Hydrothorax, status post fall COMPARISON: Chest x-ray 11/22/2021 TECHNIQUE: Multidetector volumetric CT imaging of the chest was done. Axial MIP volume rendering provided. Sagittal and coronal reformatted images were obtained. This CT examination was performed using dose optimization techniques as appropriate, variously including the following: *Automated exposure control *Adjustment of mA and/or kV according to patient size (this includes techniques or standardized protocols for targeted exams where dose is matched to indication/reason for exam; i.e. 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 LUNGS: The lungs are well-expanded with ill-defined opacity right apical posterior segment adjacent major fissure measuring 9 mm likely focal atelectasis. There is 3 mm nodule right middle lobe, axial image 255/6 and 2 mm noncalcified nodule is seen right lung apex axial image 68/6. No additional pulmonary nodules, mass or consolidation seen. MEDIASTINUM: The thyroid lobes are symmetrical and normal. The central trachea and the bronchi widely patent. Heart size and the great vessels are normal caliber. There are coronary artery calcifications present. There is no pericardial effusion seen. PLEURA: There is a small right pleural effusion. No calcified pleural plaques or thickening seen. AXILLA: No abnormal size axillary lymph nodes seen. The chest wall is unremarkable. UPPER ABDOMEN: There is pneumobilia likely from previous intervention. There are surgical elisa in the gallbladder fossa. However there is fluid collection the gallbladder fossa likely postop seroma. Visualized spleen, pancreas and bilateral adrenal glands are unremarkable. There is a small exophytic 1.2 cm upper pole and 2.7 cm midpole cyst right kidney. OSSEOUS STRUCTURES: There is mild ventral spondylosis upper and lower dorsal spine. No aggressive lytic or sclerotic process seen. There are nondisplaced fractures involving right posterior 11th, 10th ribs. CT/CT chest wo con IMPRESSION: Nondisplaced fractures right posterior 10th and 11th ribs. Small right pleural effusion but no pneumothorax. Small pulmonary nodules. Fleischner guidelines were followed.
--- NOTE | ~2021-11-22 | CT_ITS ---
EXAMINATION: CT ABDOMEN AND PELVIS WITHOUT CONTRAST CLINICAL INFORMATION: Status post fall, right flank hematoma COMPARISON: CT abdomen pelvis 01/05/2019 TECHNIQUE: Multidetector volumetric imaging was performed from the superior aspect of the liver through the pubic symphysis. Sagittal and coronal reformatted images were obtained on the technologist's workstation. This CT examination was performed using dose optimization techniques as appropriate, variously including the following: *Automated exposure control *Adjustment of mA and/or kV according to patient size (this includes techniques or standardized protocols for targeted exams where dose is matched to indication/reason for exam; i.e. extremities or head) *Use of iterative reconstruction technique DLP: 1276 mGy-cm FINDINGS: LUNG BASES: New trace right pleural effusion which measures simple fluid attenuation. Calcifications of the aortic valve leaflets. Coronary artery calcification. ABDOMINAL AND PELVIC WALL: Asymmetric subcutaneous stranding along the posterior aspect of the right flank which may reflect correspond to the reported soft tissue hematoma. Small fat-containing umbilical hernia. LIVER AND BILIARY TREE: Common bile duct is dilated to 1.6 cm previously 1.7 cm not significantly changed GALLBLADDER: Right upper quadrant cholecystectomy clips with stable dilated presumed cystic duct remnant. PANCREAS: Unremarkable. SPLEEN: Unremarkable. ADRENAL GLANDS: Unremarkable. KIDNEYS AND URETERS: Bilateral Bosniak 1 renal cysts, no routine imaging follow-up recommended. GASTROINTESTINAL TRACT: Small hiatal hernia. Incidentally noted duodenal diverticulum. Colonic diverticulosis without evidence of diverticulitis. No findings to suggest appendicitis. VASCULAR: Advanced atherosclerotic vascular calcification involving the abdominal aorta and iliac vessels. LYMPH NODES/PERITONEUM: No lymphadenopathy. FREE FLUID: None. BLADDER: Unremarkable. PELVIC VISCERA: Unremarkable. OSSEOUS STRUCTURES: Respiratory motion limits evaluation of the upper abdomen including the ribs. There are displaced right posterior 12th, 11th, and 10th rib fractures. Remote healed left rib fracture deformities. CT/CT abdomen pelvis wo con IMPRESSION: Respiratory motion limits evaluation of the upper abdomen including the ribs. There are displaced right posterior 12th, 11th, and 10th rib fractures. Asymmetric subcutaneous stranding along the posterior aspect of the right flank which may reflect correspond to the reported soft tissue hematoma. New trace right pleural effusion which although measuring simple fluid attenuation, a hemothorax would be difficult to exclude given the adjacent trauma. Lack of intravenous contrast limits evaluation for solid organ injury. With this limitation, no other findings suggestive of intra-abdominal trauma in the abdomen. Mild extrahepatic biliary duct dilatation status post cholecystectomy similar to 2019.
--- NOTE | ~2021-11-22 | US_ITS ---
EXAMINATION: US EXTRACRANIAL CAROTID DUPLEX, BILATERAL CLINICAL INFORMATION: Acute stroke COMPARISON: 05/10/2018 TECHNIQUE: Real-time ultrasound and Doppler techniques (integrating B-mode 2-D vascular images, Doppler spectral analysis and color-flow Doppler imaging) were utilized to interrogate the extracranial carotid arteries, the vertebral arteries and proximal subclavian arteries bilaterally. The degree of stenosis is determined by criteria similar to NASCET. FINDINGS: Right Side: 1. There is atherosclerotic plaque seen in the bifurcation/proximal ICA region. 2. The common carotid artery PSV proximally is 71.8 cm/s and distally 64.4 cm/s. 3. The proximal internal carotid artery velocities are 85.5 cm/s systolic and 20.3 cm/s diastolic. 4. The proximal external carotid artery PSV is 124 cm/s. 5. The vertebral artery shows antegrade flow. 6. The subclavian artery waveforms are normal. Left Side: 1. There is atherosclerotic plaque seen in the bifurcation/proximal ICA region. 2. The common carotid artery PSV proximally is 101 cm/s and distally 55.8 cm/s. 3. The proximal internal carotid artery velocities are 85.0 cm/s systolic and 17.2 cm/s diastolic. 4. The proximal external carotid artery PSV is 159 cm/s. 5. The vertebral artery shows antegrade flow. 6. The subclavian artery waveforms are normal. US/US carotid duplex BI IMPRESSION: 1. RIGHT: Minimal, non-hemodynamically significant stenosis of the proximal right internal carotid artery corresponding to a 0-49% stenosis by velocity criteria. 2. LEFT: Minimal, non-hemodynamically significant stenosis of the proximal left internal carotid artery corresponding to a 0-49% stenosis by velocity criteria. 3. There is no change in the category severity of disease when compared to the previous study dated 05/10/2018.
--- NOTE | 2021-11-22 16:14 | ECG_ITS ---
Test Reason : FALL Blood Pressure : / mmHG Vent. Rate : 080 BPM Atrial Rate : 080 BPM P-R Int : 140 ms QRS Dur : 102 ms QT Int : 386 ms P-R-T Axes : 081 072 096 degrees QTc Int : 445 ms Normal sinus rhythm Normal ECG When compared with ECG of 19-NOV-2021 18:29, No significant change was found Referred By: Cipriano Alonso Electronically Signed By:RAJWINDER STEWART
--- NOTE | 2021-11-22 16:17 | ED.NEUROSD ---
HPI - Neuro Symptoms/Deficit General Chief Complaint: Stroke Stated Complaint: ? 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 Today while he was in the kitchen taking his medication from 1 bottle and putting into another bottle using his right hand noticed sudden weakness in the right hand unable to do the function also felt weakness of the right leg by the time EMS reached weakness improved. Patient fell and hit his head on the right side, denied any headache no other injuries patient was seen here on 11/19 with fall with dizziness Related Data Home Medications Medication Instructions Recorded Confirmed atorvastatin 40 mg tablet 40 mg PO BEDTIME 11/27/20 11/22/21 citalopram 20 mg tablet 20 mg PO DAILY 11/27/20 11/22/21 cyanocobalamin (vitamin B-12) 1,000 mcg PO DAILY 11/27/20 11/22/21 1,000 mcg tablet (Vitamin B-12) divalproex 500 mg tablet,extended 1,000 mg PO BEDTIME 11/27/20 11/22/21 release 24 hr lisinopril 20 mg tablet 20 mg PO BEDTIME 11/27/20 11/22/21 lorazepam 0.5 mg tablet 0.5 mg PO TID PRN 11/27/20 11/22/21 metformin 500 mg tablet 500 mg PO BID 11/27/20 11/22/21 metoprolol succinate 50 mg 50 mg PO BEDTIME 11/27/20 11/22/21 tablet,extended release 24 hr omeprazole 20 mg capsule,delayed 20 mg PO DAILY 11/27/20 11/22/21 release risperidone 0.25 mg tablet 0.25 mg PO BEDTIME 11/27/20 11/22/21 zolpidem 5 mg tablet 5 mg PO BEDTIME PRN 11/27/20 11/22/21 gabapentin 300 mg capsule 300 mg PO QID 03/20/21 11/22/21 acetaminophen 325 mg tablet 2 tab PO Q4H PRN 11/22/21 11/22/21 Allergies Allergy/AdvReac Type Severity Reaction Status Date / Time No Known Allergies Allergy Verified 11/19/21 18:20 [No Known Allergies*] Review of Systems Review of Systems: Yes all other systems are reviewed and are negative [facility] Past Medical History Medical History (Updated 11/22/21 @ 20:30 by Blayne Jj MD) CVA (cerebral vascular accident) Dementia HTN (hypertension) Hyperlipidemia Myocardial infarct, old NIDDY (non-insulin dependent diabetes mellitus in young) Social History Social History Alcohol intake: unknown Patient Tobacco Use Status: Tobacco use Unknown Advance Directives: Yes Advance Directives on File: Yes Advance Directives Date on File: 03/21/21 service: No Current occupational status: retired Current occupation: rt handed Physical Exam Vital Signs: Vital Signs: Last Vital Signs Temp 97.8 F 11/22/21 21:49 Pulse 72 11/22/21 21:49 Resp 17 11/22/21 21:49 BP 149/65 H 11/22/21 21:49 Pulse Ox 97 11/22/21 21:49 BMI result Body Mass Index 30.7 Appearance: Alert. Oriented X3. No acute distress. Slow to speak Eyes: PERRLA, No Nystagmus ENT: Pharynx normal. Oral Mucosa moist no facial asymmetry Neck: Normal inspection. Neck supple. CVS: Normal heart rate and rhythm. Pulses normal. Respiratory: No respiratory distress. Equal air entry bilateral, no wheezing/rales/rhonchi Abdomen: Soft and nontender. Bowel sounds are present, no mass palpable, no CVA tenderness bruising with tenderness on the right flank area and right lower rib no crepitus Skin: Skin warm and dry. Normal skin color. Normal skin turgor. Extremities: No lower extremity edema. No calf tenderness Neuro: Oriented X 3. Slight weakness on the right side 4/5 as compared to left side no pronator drift No sensory deficit.No cerebellar signs , cranial nerves II-XII intact MDM - Neuro Symptoms/Deficit MDM Narrative Medical decision making narrative: Patient with acute onset of right-sided weakness lasted for few minutes with good improvement case with Dr. Power neurologist for now conservative treatment continue antiplatelet treatment Patient had carotid Doppler in 2018 which showed no evidence of significant stenosis there was a plaque on the left carotid bifurcation Patient's CT abdomen showed displaced right posterior 12, 11, 10th rib fracture with trace right pleural effusion. Chest x-ray negative Patient vital stable saturating 95% on room air on standing patient had orthostatic hypotension with drop in systolic blood pressure without tachycardia patient complained of mild dizziness but able to ambulate without assistance Case discussed with [place] thoracic surgery PA will see the patient in the morning unlikely any intervention needed Medical Records Attestation: I reviewed the patient's medical records. Lab Data Attestation: I reviewed the patient's lab results. Result diagrams: 11/22/21 17:02 11/22/21 17:02 Labs: Lab Results 11/22/21 11/22/21 11/22/21 Range/Units 16:35 17:02 17:02 WBC 4.9 (4.8-10.8) X10*3/uL RBC 3.97 L (4.60-5.80) X10*6/uL Hgb 11.8 L (14.0-18.0) g/dl Hct 34.0 L (42.0-52.0) % MCV 85.6 (80.0-98.0) fL MCH 29.7 (27.0-33.0) pg MCHC 34.7 (31.0-36.0) g/dl RDW 14.8 (11.0-16.0) % Plt Count 115 L (160-400) X10*3/uL MPV 12.1 (9.4-12.4) fL Immature Gran % (Auto) 0.4 (0.0-0.4) % Neut % (Auto) 75.9 H (45-73) % Lymph % (Auto) 12.7 L (20-40) % [place] % (Auto) 9.4 (2-11) % Eos % (Auto) 1.2 (0-4) % Baso % (Auto) 0.4 (0-2) % Lymph # (Auto) 0.6 L (1.2-4.9) X10*3/uL [place] # (Auto) 0.5 (0.1-1.2) X10*3/uL Eos # (Auto) 0.1 (0.0-0.4) X10*3/uL Baso # (Auto) 0.0 (0.0-0.2) X10*3/uL Abs Immat Gran (auto) 0.02 (0.00-0.03) X10*3/uL Absolute Neuts (auto) 3.7 (2.0-8.3) x10*3/uL Absolute Nucleated RBC 0.000 (0.0-0.012) X10*3/uL Nucleated RBC % (auto) 0.0 (0.0-0.2) /100WBC PT 12.5 (9.9-13.0) SEC INR 1.1 (0.9-1.1) Sodium (135-145) mmol/L Potassium (3.3-5.1) mmol/L Chloride (96-108) mmol/L Carbon Dioxide (22-29) mmol/L Anion Gap (12-20) BUN (9-16) mg/dL Creatinine (0.5-1.4) mg/dL Estim Creat Clear Calc Estimated GFR POC Glucose 194 H (60-115) mg/dL Random Glucose (60-115) mg/dL Calcium (8.4-10.2) mg/dL Troponin I High Sens (<3.5-35.0) ng/L Hold Red Top Urine Color Urine Appearance Urine pH (5.0-8.0) Ur Specific [place] (1.005-1.025) Urine Protein (NEG-TRACE) MG/DL Urine Glucose (UA) (NEG) MG/DL Urine Ketones (NEG) MG/DL Urine Blood (NEG) Urine Nitrite (NEG) Ur Leukocyte Esterase (NEG) COVID-19 (RICA) (Negative) COVID-19 Clin Com 11/22/21 11/22/21 11/22/21 Range/Units 17:02 17:02 17:02 WBC (4.8-10.8) X10*3/uL RBC (4.60-5.80) X10*6/uL Hgb (14.0-18.0) g/dl Hct (42.0-52.0) % MCV (80.0-98.0) fL MCH (27.0-33.0) pg MCHC (31.0-36.0) g/dl RDW (11.0-16.0) % Plt Count (160-400) X10*3/uL MPV (9.4-12.4) fL Immature Gran % (Auto) (0.0-0.4) % Neut % (Auto) (45-73) % Lymph % (Auto) (20-40) % [place] % (Auto) (2-11) % Eos % (Auto) (0-4) % Baso % (Auto) (0-2) % Lymph # (Auto) (1.2-4.9) X10*3/uL [place] # (Auto) (0.1-1.2) X10*3/uL Eos # (Auto) (0.0-0.4) X10*3/uL Baso # (Auto) (0.0-0.2) X10*3/uL Abs Immat Gran (auto) (0.00-0.03) X10*3/uL Absolute Neuts (auto) (2.0-8.3) x10*3/uL Absolute Nucleated RBC (0.0-0.012) X10*3/uL Nucleated RBC % (auto) (0.0-0.2) /100WBC PT (9.9-13.0) SEC INR (0.9-1.1) Sodium 138 (135-145) mmol/L Potassium 4.2 (3.3-5.1) mmol/L Chloride 103 (96-108) mmol/L Carbon Dioxide 29 (22-29) mmol/L Anion Gap 10 L (12-20) BUN 17 H D (9-16) mg/dL Creatinine 0.86 (0.5-1.4) mg/dL Estim Creat Clear Calc 92.0 Estimated GFR > 60 POC Glucose (60-115) mg/dL Random Glucose 204 H D (60-115) mg/dL Calcium 8.7 (8.4-10.2) mg/dL Troponin I High Sens 14.7 (<3.5-35.0) ng/L Hold Red Top See Note Urine Color Urine Appearance Urine pH (5.0-8.0) Ur Specific [place] (1.005-1.025) Urine Protein (NEG-TRACE) MG/DL Urine Glucose (UA) (NEG) MG/DL Urine Ketones (NEG) MG/DL Urine Blood (NEG) Urine Nitrite (NEG) Ur Leukocyte Esterase (NEG) COVID-19 (RICA) (Negative) COVID-19 Clin Com 11/22/21 11/22/21 Range/Units 17:08 18:17 WBC (4.8-10.8) X10*3/uL RBC (4.60-5.80) X10*6/uL Hgb (14.0-18.0) g/dl Hct (42.0-52.0) % MCV (80.0-98.0) fL MCH (27.0-33.0) pg MCHC (31.0-36.0) g/dl RDW (11.0-16.0) % Plt Count (160-400) X10*3/uL MPV (9.4-12.4) fL Immature Gran % (Auto) (0.0-0.4) % Neut % (Auto) (45-73) % Lymph % (Auto) (20-40) % [place] % (Auto) (2-11) % Eos % (Auto) (0-4) % Baso % (Auto) (0-2) % Lymph # (Auto) (1.2-4.9) X10*3/uL [place] # (Auto) (0.1-1.2) X10*3/uL Eos # (Auto) (0.0-0.4) X10*3/uL Baso # (Auto) (0.0-0.2) X10*3/uL Abs Immat Gran (auto) (0.00-0.03) X10*3/uL Absolute Neuts (auto) (2.0-8.3) x10*3/uL Absolute Nucleated RBC (0.0-0.012) X10*3/uL Nucleated RBC % (auto) (0.0-0.2) /100WBC PT (9.9-13.0) SEC INR (0.9-1.1) Sodium (135-145) mmol/L Potassium (3.3-5.1) mmol/L Chloride (96-108) mmol/L Carbon Dioxide (22-29) mmol/L Anion Gap (12-20) BUN (9-16) mg/dL Creatinine (0.5-1.4) mg/dL Estim Creat Clear Calc Estimated GFR POC Glucose (60-115) mg/dL Random Glucose (60-115) mg/dL Calcium (8.4-10.2) mg/dL Troponin I High Sens (<3.5-35.0) ng/L Hold Red Top Urine Color YELLOW Urine Appearance CLEAR Urine pH 6.0 (5.0-8.0) Ur Specific [place] 1.020 (1.005-1.025) Urine Protein NEG (NEG-TRACE) MG/DL Urine Glucose (UA) NEG (NEG) MG/DL Urine Ketones 5 (NEG) MG/DL Urine Blood NEG (NEG) Urine Nitrite NEG (NEG) Ur Leukocyte Esterase NEG (NEG) COVID-19 (RICA) Negative (Negative) COVID-19 Clin Com See Note Imaging Data CT scan - abdomen: Attestation: I personally reviewed and interpreted this imaging study as follows: Radiologist's impression: Respiratory motion limits evaluation of the upper abdomen including the ribs. There are displaced right posterior 12th, 11th, and 10th rib fractures. ? Asymmetric subcutaneous stranding along the posterior aspect of the right flank which may reflect correspond to the reported soft tissue hematoma.? ? New trace right pleural effusion which although measuring simple fluid attenuation, a hemothorax would be difficult to exclude given the adjacent trauma. ? Lack of intravenous contrast limits evaluation for solid organ injury. With this limitation, no other findings suggestive of intra-abdominal trauma in the abdomen. ? Mild extrahepatic biliary duct dilatation status post cholecystectomy similar to 2019. NIH Stroke Scale Internal: Initial- Upon Arrival Level of Consciousness: Alert Level of Consciousness Questions: Answers both questions correctly Level of Consciousness Commands: Performs both tasks correctly Best Gaze: Normal Visual: No visual loss Facial Palsy: Normal Motor Arm (Right): No drift Motor Arm (Left): No drift Motor Leg (Right): No drift Motor Leg (Left): No drift Limb Ataxia: Absent Sensory: Normal Best Language: No aphasia Dysarthia: Normal Extinction and Inattention: No abnormality Score: 0 Discharge Plan Discharge Clinical Impression: Brain TIA, Orthostatic hypotension, Multiple rib fractures Patient Disposition: Admitted As Inpatient
[2021-11-22 16:27] VITALS: BP 147/58; PULSE 81; RESP 18; TEMP 36.9; O2SAT 95; BMI 30.7
[2021-11-22 16:51] LABS: Glucose, Whole Blood 194 mg/dL (60-115)
[2021-11-22 17:12] LABS: Hemoglobin 11.8 g/dl (14.0-18.0); Neutrophils Percent Auto 75.9 % (45-73); PLT CLUMP 1; Red Cell Distribution Width 14.8 % (11.0-16.0); SCAN SMEAR FLAG 1
[2021-11-22 17:14] LABS: Basophils Percent Auto 0.4 % (0-2); Eosinophils Absolute Auto 0.1 X10*3/uL (0.0-0.4); Eosinophils Percent Auto 1.2 % (0-4); Imm Gran Abs Auto 0.02 X10*3/uL (0.00-0.03); Imm Gran Pct Auto 0.4 % (0.0-0.4); Lymphocytes Absolute Auto 0.6 X10*3/uL (1.2-4.9); Lymphocytes Percent Auto 12.7 % (20-40); Mean Corpuscular HGB Conc 34.7 g/dl (31.0-36.0); Mean Corpuscular Hemoglobin 29.7 pg (27.0-33.0); Mean Corpuscular Volume 85.6 fL (80.0-98.0); Mean Platelet Volume 12.1 fL (9.4-12.4); Monocytes Absolute Auto 0.5 X10*3/uL (0.1-1.2); Monocytes Percent Auto 9.4 % (2-11); Neutrophils Absolute Auto 3.7 x10*3/uL (2.0-8.3); Red Blood Count 3.97 X10*6/uL (4.60-5.80)
[2021-11-22 17:24] LABS: Platelet Count 115 X10*3/uL (160-400); White Blood Count 4.9 X10*3/uL (4.8-10.8)
[2021-11-22 17:25] LABS: MANUAL DIFF FLAG NO
[2021-11-22 17:27] LABS: Anion Gap 10 (12-20); Blood Urea Nitrogen 17 mg/dL (9-16); Calcium 8.7 mg/dL (8.4-10.2); Carbon Dioxide 29 mmol/L (22-29); Chloride 103 mmol/L (96-108); Estimated Glomerular Filt Rate > 60; Glucose Random 204 mg/dL (60-115); Potassium 4.2 mmol/L (3.3-5.1); Sodium 138 mmol/L (135-145)
[2021-11-22 17:31] LABS: Troponin-I High Sensitivity 14.7 ng/L (<3.5-35.0)
[2021-11-22 17:31] LABS: COVID-19 Test Negative (Negative); IDNOW Serial# 16C4AD1C
[2021-11-22 17:33] LABS: INTERNATIONAL NORM RATIO 1.1 (0.9-1.1); Prothrombin Time 12.5 SEC (9.9-13.0)
[2021-11-22 17:35] LABS: Stroke Lab Use COMPLETE
[2021-11-22 18:11] VITALS: BP 161/60; BP 162/67; PULSE 86
[2021-11-22 18:12] VITALS: BP 142/64; PULSE 85
--- NOTE | 2021-11-22 18:13 | PC.NURSE ---
PATIENT WAS CHANGE INTO HOSPITAL ATTIRE ,PATIENT WENT FOR A SHORT WALK WITH STAFF ASSISTANCE ,PATIENT VOID INTO URINAL PATIENT HAD AN ICE CREAM FOR SNACK .
[2021-11-22 18:25] LABS: Appearance Urine CLEAR; Color Urine YELLOW; Glucose Urine UA NEG (NEG); Leukocyte Esterase Urine NEG (NEG); Nitrite Urine NEG (NEG); Urine Blood NEG (NEG); Urine Ketones 5 MG/DL (NEG); Urine Protein NEG (NEG-TRACE)
[2021-11-22] MEDS: 0.9 % Sodium Chloride 1,000 ML 999 ML IV (18:29)
[2021-11-22 20:00] VITALS: BP 153/60; PULSE 81; RESP 16; TEMP 37; O2SAT 97
--- NOTE | 2021-11-22 20:29 | P.HPHOSP_ITS ---
History of Present Illness Date of Service: 11/22/21 Chief Complaint: right hand weakness 71-year-old male with a past medical history of hypertension, hyperlipidemia, diabetes, CAD, CVA with residual expressive aphasia with behavioral changes; presented to the hospital with a chief complaint of weakness in his right upper extremity. Patient reported that today he noticed decreased sensation, feeling funny in his right upper extremity when he was trying to take his pills. Denies any headaches or blurry visions. Denies any chest pain palpitations. Denies any numbness tingling or weakness in his bilateral lower extremities. At the time of my interview patient reported that her symptoms slightly improved but still feels funny in his right upper extremity. Denies any fall Today. But feels dizzy patient reported that he had a fall couple days ago, fell onto the glass, had laceration of the skin; Reports pain in the back where he hit from the fall -right lateral chest wall; reports he had Stitches done. Review of all other systems is negative except mentioned above ER course: Per ER team patient noted to have 4/5 strength in his right upper extremity; CT head showed no acute findings; patient also had pain in his right lateral chest wall; CT abdomen pelvis was done which showed - posterior 04/15/2012 rib fractures with small right pleural effusion concerning for hemothorax; also noted cardiothoracic surgery who mentioned he will be evaluated in the morning and suggested admission to the [facility]. Patient currently breathing comfortably. ER team also notified neurology-who recommended aspirin and did not recommend any MRI. Patient was given aspirin. Admitted for further management. [facility] Medical History (Updated 11/22/21 @ 20:30 by Blayne Jj MD) CVA (cerebral vascular accident) Dementia HTN (hypertension) Hyperlipidemia Myocardial infarct, old NIDDY (non-insulin dependent diabetes mellitus in young) Social History Alcohol intake: unknown Patient Tobacco Use Status: Tobacco use Unknown Advance Directives: Yes Advance Directives on File: Yes Advance Directives Date on File: 03/21/21 service: No Current occupational status: retired Current occupation: rt handed Meds Allergies Allergy/AdvReac Type Severity Reaction Status Date / Time No Known Allergies Allergy Verified 11/19/21 18:20 [No Known Allergies*] Active Medications: Current Medications Acetaminophen (Acetaminophen 325 Mg Tablet) 650 mg PO Q6H PRN PRN Reason: Pain, Mild (Pain Scale 1-3) Dextrose (Dextrose 50 % 25 Gm/50 Ml Syringe) 25 gm IVPUSH Q15M PRN; Protocol PRN Reason: per Hypoglycemia Standing Ord. Enoxaparin Sodium (Enoxaparin Sodium 40 Mg/0.4 Ml Syringe) 40 mg SUBCUT Q24H [facility] Glucose (Glucose Gel 15 Gm Gel..Gram.) 15 gm PO Q15M PRN; Protocol PRN Reason: per Hypoglycemia Standing Ord. Insulin Human Lispro (Insulin Lispro 100 Unit/Ml 3 Ml Vial) 0 unit SUBCUT QIDACHS [facility]; Protocol Melatonin (Melatonin 3 Mg Tablet) 6 mg PO BEDTIME PRN PRN Reason: Insomnia Pharmacy Consult (Consult Rx Perform Med Rec) 1 each MISCELLANE ONCE STA Stop: 11/22/21 20:26 Senna (Sennosides 8.6 Mg Tablet) 17.2 mg PO BEDTIME PRN PRN Reason: Constipation Sodium Chloride (0.9 % Sodium Chloride Flush 3 Ml Syringe) 3 ml IVFLUSH QSHIFT [facility] Home Medications Medication Instructions Recorded Confirmed Last Taken Type atorvastatin 40 mg tablet 40 mg PO BEDTIME 11/27/20 11/22/21 11/21/21 History citalopram 20 mg tablet 20 mg PO DAILY 11/27/20 11/22/21 11/22/21 History cyanocobalamin (vitamin B-12) 1,000 mcg PO DAILY 11/27/20 11/22/21 11/22/21 History 1,000 mcg tablet (Vitamin B-12) divalproex 500 mg tablet,extended 1,000 mg PO BEDTIME 11/27/20 11/22/21 11/21/21 History release 24 hr lisinopril 20 mg tablet 20 mg PO BEDTIME 11/27/20 11/22/21 11/21/21 History lorazepam 0.5 mg tablet 0.5 mg PO TID PRN 11/27/20 11/22/21 11/21/21 History metformin 500 mg tablet 500 mg PO BID 11/27/20 11/22/21 11/22/21 History metoprolol succinate 50 mg 50 mg PO BEDTIME 11/27/20 11/22/21 11/21/21 History tablet,extended release 24 hr omeprazole 20 mg capsule,delayed 20 mg PO DAILY 11/27/20 11/22/21 11/22/21 History release risperidone 0.25 mg tablet 0.25 mg PO BEDTIME 11/27/20 11/22/21 11/21/21 History zolpidem 5 mg tablet 5 mg PO BEDTIME PRN 11/27/20 11/22/21 11/21/21 History gabapentin 300 mg capsule 300 mg PO QID 03/20/21 11/22/21 11/22/21 History acetaminophen 325 mg tablet 2 tab PO Q4H PRN 11/22/21 11/22/21 Unknown History Physical Exam 2 Vital Signs and Narrative: Vital Signs: Last Vital Signs Temp 98.6 F 11/22/21 20:00 Pulse 81 11/22/21 20:00 Resp 16 11/22/21 20:00 BP 153/60 H 11/22/21 20:00 Pulse Ox 97 11/22/21 20:00 BMI result Body Mass Index 30.7 Gen: Appears be in no acute distress HEENT: NCAT, Moist mucosa. Pulmonary: Vesicular breath sounds, fair air entry CVS: Normal S1-S2 Abdomen: BS+, Soft, Nontender; right posterolateral chest wall has stitches in place. No surrounding erythema. Tender on palpation. Extremities: Warm well perfused; right forearm status post Stitches has dressing in place. Neuro: Alert and awake. slightly decreased strength on the right wrist compared to the left wrist; Slightly decreased sensations on the right upper extremity compared to the left upper extremity; strength 5/5 in bilateral lower extremities; cranial nerves intact; prior history of expressive aphasia Results Labs CBC and Chem 7: 11/22/21 17:02 11/22/21 17:02 Labs: Laboratory Results - last 24 hr 11/22/21 11/22/21 11/22/21 16:35 17:02 17:02 MCV 85.6 MCH 29.7 MCHC 34.7 RDW 14.8 Plt Count 115 L MPV 12.1 Immature Gran % (Auto) 0.4 Neut % (Auto) 75.9 H Lymph % (Auto) 12.7 L [place] % (Auto) 9.4 Eos % (Auto) 1.2 Baso % (Auto) 0.4 Lymph # (Auto) 0.6 L [place] # (Auto) 0.5 Eos # (Auto) 0.1 Baso # (Auto) 0.0 Abs Immat Gran (auto) 0.02 Absolute Neuts (auto) 3.7 Absolute Nucleated RBC 0.000 Nucleated RBC % (auto) 0.0 PT 12.5 INR 1.1 Anion Gap Estim Creat Clear Calc Estimated GFR POC Glucose 194 H Random Glucose Calcium Troponin I High Sens Hold Red Top Urine Color Urine Appearance Urine pH Ur Specific [place] Urine Protein Urine Glucose (UA) Urine Ketones Urine Blood Urine Nitrite Ur Leukocyte Esterase COVID-19 (RICA) COVID-19 [place] 11/22/21 11/22/21 11/22/21 17:02 17:02 17:02 MCV MCH MCHC RDW Plt Count MPV Immature Gran % (Auto) Neut % (Auto) Lymph % (Auto) [place] % (Auto) Eos % (Auto) Baso % (Auto) Lymph # (Auto) [place] # (Auto) Eos # (Auto) Baso # (Auto) Abs Immat Gran (auto) Absolute Neuts (auto) Absolute Nucleated RBC Nucleated RBC % (auto) PT INR Anion Gap 10 L Estim Creat Clear Calc 92.0 Estimated GFR > 60 POC Glucose Random Glucose 204 H D Calcium 8.7 Troponin I High Sens 14.7 Hold Red Top See Note Urine Color Urine Appearance Urine pH Ur Specific [place] Urine Protein Urine Glucose (UA) Urine Ketones Urine Blood Urine Nitrite Ur Leukocyte Esterase COVID-19 (RICA) COVID-FOODITY 11/22/21 11/22/21 17:08 18:17 MCV MCH MCHC RDW Plt Count MPV Immature Gran % (Auto) Neut % (Auto) Lymph % (Auto) [place] % (Auto) Eos % (Auto) Baso % (Auto) Lymph # (Auto) [place] # (Auto) Eos # (Auto) Baso # (Auto) Abs Immat Gran (auto) Absolute Neuts (auto) Absolute Nucleated RBC Nucleated RBC % (auto) PT INR Anion Gap Estim Creat Clear Calc Estimated GFR POC Glucose Random Glucose Calcium Troponin I High Sens Hold Red Top Urine Color YELLOW Urine Appearance CLEAR Urine pH 6.0 Ur Specific [place] 1.020 Urine Protein NEG Urine Glucose (UA) NEG Urine Ketones 5 Urine Blood NEG Urine Nitrite NEG Ur Leukocyte Esterase NEG COVID-19 (RICA) Negative COVID-19 Infusion Resource Com See Note Imaging Radiologist's Impressions: Impressions Head CT 11/22/21 16:23 IMPRESSION: No acute findings. Mild prominence of the ventricles and extra-axial CSF spaces similar to previous exams. This critical result was discussed with Dr. Keene at 1630 hours on 11/22/2021. It was ascertained that the content and urgency of the report was understood at the time of direct communication. Cervical Spine CT 11/22/21 16:30 IMPRESSION: No evidence of acute fracture and no post matter spinal subluxation. There is advanced multilevel degenerative spondylosis of the cervical spine. Bridging bone fuses the C5-C7 vertebra. There is junctional spondylosis below the fused segments at the level of C7-T1 where there is slight anterolisthesis related to advanced arthrosis of the articular facet joints. Canal patency is not well assessed on this examination due to inherent limitations of CT without intrathecal contrast. There is however at least mild canal stenosis at multiple levels. If there is clinical symptoms of compressive myelopathy then a dedicated cervical spinal MRI can be obtained for better anatomic characterization of the cord and canal. Fleischner guidelines were followed. Abdomen/Pelvis CT 11/22/21 17:32 IMPRESSION: Respiratory motion limits evaluation of the upper abdomen including the ribs. There are displaced right posterior 12th, 11th, and 10th rib fractures. Asymmetric subcutaneous stranding along the posterior aspect of the right flank which may reflect correspond to the reported soft tissue hematoma. New trace right pleural effusion which although measuring simple fluid attenuation, a hemothorax would be difficult to exclude given the adjacent trauma. Lack of intravenous contrast limits evaluation for solid organ injury. With this limitation, no other findings suggestive of intra-abdominal trauma in the abdomen. Mild extrahepatic biliary duct dilatation status post cholecystectomy similar to 2019. Chest X-Ray 11/22/21 17:53 IMPRESSION: No pneumonia or edema. Assessment and Plan (1) Brain TIA: Status: Acute (2) Orthostatic hypotension: Status: Acute (3) Multiple rib fractures: Status: Acute Plan 71-year-old male with a past medical history of hypertension, hyperlipidemia, diabetes, CAD, CVA with residual expressive aphasia with behavioral changes; presented to the hospital with a chief complaint of weakness in his right upper extremity. Right hand weakness: possible TIA. Patient still feels slight decreased sensation in his right upper extremity. Strength 4/5 Compared to the left. CT head showed no acute findings Carotid duplex -result pending Echo with bubble study PT/OT/ speech and swallow eval Neurology Dr. Chapman was notified, Did not recommend MRI plan was to give aspirin but will hold for now given concerns for small right hemothorax - will await until cleared by CT surgery. Dizziness: Patient orthostatics positive. EKG nonischemic. Troponin 14.7. Repeat pending. orthostatic hypotension: Continue IV fluids. Home antihypertensives held. Fall precautions. Repeat orthostatic vitals in the morning. Rib fractures: CT scan showed displaced right 04/15/2012 rib fractures. Patient had fallen 11/19/2021. Noted small bruise on the skin. CT scan also showed possible small pleural effusion concerning for hemothorax. Spoke to Roberto Kenny from thoracic surgery-> mentioned patient will be evaluated in the morning. Recommended non contrast CT chest. Patient currently breathing comfortably, saturating 95% on room air. Pain control History of CVA: Patient had expressive aphasia. Supportive care. History of diabetes: Insulin sliding scale History of hyperlipidemia on chin/hyperlipidemia: Hold home antihypertensives for now -to be resumed after 24 hours. permissive hypertension. Continue home statin History of mood disorder: Continue home medications. DVT prophylaxis: SCD boots Code status: presumed full code for now; will defer to the day team to confirm with the patient's family. Unable to find was from. I tried to reach the patient's son on the phone number [phone]-not reachable; left voice message with call back number. Quality Stroke Does the patient have a stroke diagnosis?: No VTE Prior VTE?: No VTE Risk Level:: Medical - moderate - high VTE Device Contraindication: Treatment Not Indicated VTE Drug Contraindication: N/A - Med Ordered
--- NOTE | 2021-11-22 21:17 | PHA.MEDREC ---
Pharmacy Consult ? Medication Reconciliation Pharmacy has completed the medication reconciliation. CAN TAKE UP TO 3 LORAZEPAM AT BEDTIME
[2021-11-22 21:49] VITALS: BP 149/65; PULSE 72; RESP 17; TEMP 36.6; O2SAT 97
[2021-11-22 21:51] LABS: Glucose, Whole Blood 165 mg/dL (60-115)
[2021-11-22] MEDS: Insulin Lispro 100 UNIT/ML 3 ML VIAL SUBCUT (22:10)
[2021-11-22 23:14] VITALS: BP 169/76; PULSE 72; RESP 16; TEMP 36.6; O2SAT 96
--- NOTE | 2021-11-22 23:14 | MHC.CM.PN ---
SHEILA 11/22. Pt A&Ox4. Had stroke in 2012 and has expressive aphasia, but can communicate slowly if given a chance and the listener is patient. Pt tells CM he does not feel safe at home.Pt's , Leigh Ann, on September 12, 2021. Pt was very weepy when telling CM about his 's recent . He has been living alone with a neighbor to help him. Denies having any help at home.States his son doesn't always help him and he has always been like this. States he is in [place] this weekend. unable to reach him . CM did not call [facility]. Will need to try and reach son in the morning. Pt lives alone and has had multiple falls. Seen at [facility] on 11/19 after falling into a window and receiving multiple lacerations and 29 external stitches. Pt lives alone and uses a cane. Received Moderna x2, but no booster. Pt tells CM he orders take out from [employer] every day but Thursday, as they are closed. Tells CM that the bathroom is very dirty and he has trouble with the stairs. HCP is his who and the alternate is his son Dallas Shannon ([phone]). His son lives on [facility] in . Exam today shows orthostatic BP's, ?TIA and CT scan shows multiple rib fx's. PT, OT and Speech are pending. Referrals broadcasted. D/C plan is STR. Pt is agreeable. Will need transportation.
[2021-11-22 23:15] LABS: Troponin-I High Sensitivity 17.9 ng/L (<3.5-35.0)
--- NOTE | 2021-11-22 23:16 | PC.NURSE ---
PATIENT WAS ASSISTED TO USE THE URINAL AT BEDSIDE .
[2021-11-23] VITALS (9 sets, daily range): BP systolic 132–206; BP diastolic 51–83; PULSE 65–82; RESP 12–22; TEMP 36.6–36.8; O2SAT 93–98
[2021-11-23] MEDS: Gabapentin 300 MG CAPSULE PO ×5 (01:17→19:50)
[2021-11-23] MEDS: risperiDONE 0.25 MG TABLET PO ×2 (01:17→19:50)
[2021-11-23] MEDS: Zolpidem Tartrate 5 MG TABLET PO (01:17)
[2021-11-23] MEDS: Divalproex Sodium ER 500 MG TAB.ER.24H 1000 MG PO ×2 (01:18→19:47)
[2021-11-23] MEDS: Atorvastatin Calcium 40 MG TABLET PO ×2 (01:18→19:50)
--- NOTE | 2021-11-23 02:20 | PC.NURSE ---
Pt's BP meds were omitted from SEP. Pt found to be hypertensive and this RN called hospitalist to inform him that pt needed BP meds.
[2021-11-23] MEDS: Metoprolol Succinate ER 50 MG TAB.ER.24H PO ×2 (03:06→19:47)
[2021-11-23] MEDS: Acetaminophen 325 MG TABLET 650 MG PO (04:41)
[2021-11-23 07:31] LABS: MANUAL DIFF FLAG NO
[2021-11-23 07:37] LABS: Glucose, Whole Blood 137 mg/dL (60-115)
[2021-11-23 07:45] LABS: Basophils Percent Auto 0.5 % (0-2); Blood Urea Nitrogen 18 mg/dL (9-16); Carbon Dioxide 30 mmol/L (22-29); Creatinine Clr Calc Pharmacy 109.9; Eosinophils Absolute Auto 0.1 X10*3/uL (0.0-0.4); Eosinophils Percent Auto 1.9 % (0-4); Estimated Glomerular Filt Rate > 60; Glucose Random 153 mg/dL (60-115); Hematocrit 35.9 % (42.0-52.0); Hemoglobin 12.2 g/dl (14.0-18.0); Imm Gran Abs Auto 0.02 X10*3/uL (0.00-0.03); Imm Gran Pct Auto 0.5 % (0.0-0.4); Lymphocytes Absolute Auto 1.1 X10*3/uL (1.2-4.9); Lymphocytes Percent Auto 25.9 % (20-40); Mean Corpuscular Hemoglobin 29.2 pg (27.0-33.0); Mean Corpuscular Volume 85.9 fL (80.0-98.0); Mean Platelet Volume 11.3 fL (9.4-12.4); Monocytes Absolute Auto 0.5 X10*3/uL (0.1-1.2); Monocytes Percent Auto 11.7 % (2-11); Neutrophils Absolute Auto 2.6 x10*3/uL (2.0-8.3); Neutrophils Percent Auto 59.5 % (45-73); Platelet Count 105 X10*3/uL (160-400); Potassium 4.7 mmol/L (3.3-5.1); Red Blood Count 4.18 X10*6/uL (4.60-5.80); Red Cell Distribution Width 14.9 % (11.0-16.0); White Blood Count 4.3 X10*3/uL (4.8-10.8)
[2021-11-23] MEDS: Cyanocobalamin (Vitamin B-12) 1,000 MCG TABLET 1000 MCG PO (07:51)
[2021-11-23] MEDS: Aspirin Enteric Coated 81 MG TABLET.DR PO (07:52)
[2021-11-23] MEDS: Escitalopram Oxalate 10 MG TABLET PO (07:52)
[2021-11-23] MEDS: Omeprazole 20 MG CAPSULE.DR PO (07:52)
[2021-11-23] MEDS: 0.9 % Sodium Chloride Flush 3 ML SYRINGE IVFLUSH ×2 (07:52→19:50)
--- NOTE | 2021-11-23 08:02 | PC.NURSE ---
Pt is A&Ox4, neuros grossly intact at this time. NSR on monitor, no complaints of pain at this time, dressing over R forearm from previous stitches placed on Thursday. 100% of breakfast eaten this AM. Medicated as per [facility] orders. Call song within reach, will continue to monitor.
[2021-11-23 08:03] LABS: Cholesterol 77 mg/dL; HDL Cholesterol 33 mg/dL; LDL Cholesterol Calculated 37 mg/dl; Magnesium 1.8 mg/dL (1.6-2.6); Triglycerides 36 mg/dL
--- NOTE | 2021-11-23 08:37 | P.PNIM_ITS ---
Subjective Subjective Date of Service: 11/23/21 Interval History: TIA, Dizziness, rib fractures,? hypernatremia Review of Systems Patient seems to be improving, Denies any chest pain or shortness of breath or abdominal pain or fever chills or cough or phlegm. Physical Exam Vital Signs: Vital Signs: Last Vital Signs Temp 97.9 F 11/23/21 05:35 Pulse 78 11/23/21 07:36 Resp 12 11/23/21 07:36 BP 178/59 H 11/23/21 07:36 Pulse Ox 95 11/23/21 07:36 BMI result Body Mass Index 30.7 Appearance: Alert.? Oriented X3.? not in distress.? cvs: rrr, [id number] res: fair air netry,no rhonchii or wheezing abd: no rebound or guarding ,nt, bs present. ext pulses present , no cyanosis . neuro: axo3 , nonfocal. Objective Data Active Medications Acetaminophen (Acetaminophen 325 Mg Tablet) 650 mg PO Q6H PRN PRN Reason: Pain, Mild (Pain Scale 1-3) Last Admin: 11/23/21 04:41 Dose: 650 mg Documented by: RJ Aspirin (Aspirin Enteric Coated 81 Mg Tablet.Dr) 81 mg PO DAILY [facility] Last Admin: 11/23/21 07:52 Dose: 81 mg Documented by: JAY Atorvastatin Calcium (Atorvastatin Calcium 40 Mg Tablet) 40 mg PO BEDTIME [facility] Last Admin: 11/23/21 01:18 Dose: 40 mg Documented by: RJ Cyanocobalamin (Cyanocobalamin (Vitamin B-12) 1,000 Mcg Tablet) 1,000 mcg PO DAILY [facility] Last Admin: 11/23/21 07:51 Dose: 1,000 mcg Documented by: JAY Dextrose (Dextrose 50 % 25 Gm/50 Ml Syringe) 25 gm IVPUSH Q15M PRN; Protocol PRN Reason: per Hypoglycemia Standing Ord. Divalproex Sodium (Divalproex Sodium Er 500 Mg Tab.Er.24h) 1,000 mg PO BEDTIME [facility] Last Admin: 11/23/21 01:18 Dose: 1,000 mg Documented by: RJ Escitalopram Oxalate (Escitalopram Oxalate 10 Mg Tablet) 10 mg PO DAILY [facility] Last Admin: 11/23/21 07:52 Dose: 10 mg Documented by: JAY Gabapentin (Gabapentin 300 Mg Capsule) 300 mg PO QID [facility] Last Admin: 11/23/21 07:52 Dose: 300 mg Documented by: JAY Glucose (Glucose Gel 15 Gm Gel..Gram.) 15 gm PO Q15M PRN; Protocol PRN Reason: per Hypoglycemia Standing Ord. Dextrose/Sodium Chloride (D5ns) 1,000 mls @ 50 mls/hr IVCONT .Q20H ROZINA Dextrose/Sodium Chloride (D51/2ns) 1,000 mls @ 50 mls/hr IVCONT .Q20H [facility] Insulin Human Lispro (Insulin Lispro 100 Unit/Ml 3 Ml Vial) 0 unit SUBCUT QIDACHS [facility]; Protocol Last Admin: 11/23/21 07:55 Dose: Not Given Documented by: JAY Non-Admin Reason: No Insulin Coverage Lorazepam (Lorazepam 0.5 Mg Tablet) 0.5 mg PO TID PRN PRN Reason: Anxiety Melatonin (Melatonin 3 Mg Tablet) 6 mg PO BEDTIME PRN PRN Reason: Insomnia Metoprolol Succinate (Metoprolol Succinate Er 50 Mg Tab.Er.24h) 50 mg PO BEDTIME [facility]; Protocol Last Admin: 11/23/21 03:06 Dose: 50 mg Documented by: RJ Omeprazole (Omeprazole 20 Mg Capsule.Dr) 20 mg PO DAILY@0630 [facility] Last Admin: 11/23/21 07:52 Dose: 20 mg Documented by: JAY Risperidone (Risperidone 0.25 Mg Tablet) 0.25 mg PO BEDTIME [facility] Last Admin: 11/23/21 01:17 Dose: 0.25 mg Documented by: RJ Senna (Sennosides 8.6 Mg Tablet) 17.2 mg PO BEDTIME PRN PRN Reason: Constipation Sodium Chloride (0.9 % Sodium Chloride Flush 3 Ml Syringe) 3 ml IVFLUSH QSHIFT [facility] Last Admin: 11/23/21 07:52 Dose: 3 ml Documented by: JAY Zolpidem Tartrate (Zolpidem Tartrate 5 Mg Tablet) 5 mg PO BEDTIME PRN PRN Reason: insomnia Last Admin: 11/23/21 01:17 Dose: 5 mg Documented by: RJ Labs CBC & Chem 7: 11/23/21 07:11 11/23/21 13:33 Labs: Laboratory Results - last 24 hr 11/22/21 11/22/21 11/22/21 16:35 17:02 17:02 MCV 85.6 MCH 29.7 MCHC 34.7 RDW 14.8 Plt Count 115 L MPV 12.1 Immature Gran % (Auto) 0.4 Neut % (Auto) 75.9 H Lymph % (Auto) 12.7 L [place] % (Auto) 9.4 Eos % (Auto) 1.2 Baso % (Auto) 0.4 Lymph # (Auto) 0.6 L [place] # (Auto) 0.5 Eos # (Auto) 0.1 Baso # (Auto) 0.0 Abs Immat Gran (auto) 0.02 Absolute Neuts (auto) 3.7 Absolute Nucleated RBC 0.000 Nucleated RBC % (auto) 0.0 PT 12.5 INR 1.1 Anion Gap Estim Creat Clear Calc Estimated GFR POC Glucose 194 H Random Glucose Calcium Magnesium Troponin I High Sens Triglycerides Cholesterol LDL Cholesterol, Calc HDL Cholesterol Hold Red Top Urine Color Urine Appearance Urine pH Ur Specific [place] Urine Protein Urine Glucose (UA) Urine Ketones Urine Blood Urine Nitrite Ur Leukocyte Esterase COVID-19 (RICA) COVIDDetectent 11/22/21 11/22/21 11/22/21 17:02 17:02 17:02 MCV MCH MCHC RDW Plt Count MPV Immature Gran % (Auto) Neut % (Auto) Lymph % (Auto) [place] % (Auto) Eos % (Auto) Baso % (Auto) Lymph # (Auto) [place] # (Auto) Eos # (Auto) Baso # (Auto) Abs Immat Gran (auto) Absolute Neuts (auto) Absolute Nucleated RBC Nucleated RBC % (auto) PT INR Anion Gap 10 L Estim Creat Clear Calc 92.0 Estimated GFR > 60 POC Glucose Random Glucose 204 H D Calcium 8.7 Magnesium Troponin I High Sens 14.7 Triglycerides Cholesterol LDL Cholesterol, Calc HDL Cholesterol Hold Red Top See Note Urine Color Urine Appearance Urine pH Ur Specific [place] Urine Protein Urine Glucose (UA) Urine Ketones Urine Blood Urine Nitrite Ur Leukocyte Esterase COVID-19 (RICA) COVIDDetectent 11/22/21 11/22/21 11/22/21 17:08 18:17 21:47 MCV MCH MCHC RDW Plt Count MPV Immature Gran % (Auto) Neut % (Auto) Lymph % (Auto) [place] % (Auto) Eos % (Auto) Baso % (Auto) Lymph # (Auto) [place] # (Auto) Eos # (Auto) Baso # (Auto) Abs Immat Gran (auto) Absolute Neuts (auto) Absolute Nucleated RBC Nucleated RBC % (auto) PT INR Anion Gap Estim Creat Clear Calc Estimated GFR POC Glucose 165 H Random Glucose Calcium Magnesium Troponin I High Sens Triglycerides Cholesterol LDL Cholesterol, Calc HDL Cholesterol Hold Red Top Urine Color YELLOW Urine Appearance CLEAR Urine pH 6.0 Ur Specific [place] 1.020 Urine Protein NEG Urine Glucose (UA) NEG Urine Ketones 5 Urine Blood NEG Urine Nitrite NEG Ur Leukocyte Esterase NEG COVID-19 (RICA) Negative COVID-19 [employer] See Note 11/22/21 11/23/21 11/23/21 22:45 07:11 07:11 MCV 85.9 MCH 29.2 MCHC 34.0 RDW 14.9 Plt Count 105 L MPV 11.3 Immature Gran % (Auto) 0.5 H Neut % (Auto) 59.5 Lymph % (Auto) 25.9 [place] % (Auto) 11.7 H Eos % (Auto) 1.9 Baso % (Auto) 0.5 Lymph # (Auto) 1.1 L [place] # (Auto) 0.5 Eos # (Auto) 0.1 Baso # (Auto) 0.0 Abs Immat Gran (auto) 0.02 Absolute Neuts (auto) 2.6 Absolute Nucleated RBC 0.000 Nucleated RBC % (auto) 0.0 PT INR Anion Gap 11 L Estim Creat Clear Calc 109.9 Estimated GFR > 60 POC Glucose Random Glucose 153 H Calcium 9.0 Magnesium Troponin I High Sens 17.9 Triglycerides Cholesterol LDL Cholesterol, Calc HDL Cholesterol Hold Red Top Urine Color Urine Appearance Urine pH Ur Specific [place] Urine Protein Urine Glucose (UA) Urine Ketones Urine Blood Urine Nitrite Ur Leukocyte Esterase COVID-19 (RICA) COVID-19 [employer] 11/23/21 11/23/21 07:11 07:32 MCV MCH MCHC RDW Plt Count MPV Immature Gran % (Auto) Neut % (Auto) Lymph % (Auto) [place] % (Auto) Eos % (Auto) Baso % (Auto) Lymph # (Auto) [place] # (Auto) Eos # (Auto) Baso # (Auto) Abs Immat Gran (auto) Absolute Neuts (auto) Absolute Nucleated RBC Nucleated RBC % (auto) PT INR Anion Gap Estim Creat Clear Calc Estimated GFR POC Glucose 137 H Random Glucose Calcium Magnesium 1.8 Troponin I High Sens Triglycerides 36 Cholesterol 77 LDL Cholesterol, Calc 37 HDL Cholesterol 33 Hold Red Top Urine Color Urine Appearance Urine pH Ur Specific [place] Urine Protein Urine Glucose (UA) Urine Ketones Urine Blood Urine Nitrite Ur Leukocyte Esterase COVID-19 (RICA) COVID-19 Clin Com Assessment and Plan (1) Arm weakness: Status: Acute (2) Orthostatic hypotension: Status: Acute (3) Multiple rib fractures: Status: Acute Plan 71-year-old male with a past medical history of hypertension, hyperlipidemia, diabetes, CAD, 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 Right hand weakness:?possible related to fall. CT head showed no acute findings Carotid duplex -seems fine will dc echo , no indication of a stroke as per neuro. PT-receomended rehab/ot eval for fall ? Dizziness: Patient orthostatics positive.? EKG nonischemic.? Troponin ?flat ?orthostatic hypotension:? blood pressure moniter .? Fall precautions.? repeat orthostaisis continue metoprolol/hold lisinopril. Rib fractures: CT scan showed displaced right 04/15/2012 rib fractures.? Patient had fallen 11/19/2021.? Noted small bruise on the skin.? CT scan also showed possible small pleural effusion concerning for hemothorax.? Spoke to ? Roberto Kenny from thoracic surgery- Nondisplaced fractures right posterior 10th and 11th ribs. Small right pleural effusion but no pneumothorax. repeat cxr this pm and in tomorrow am Patient currently breathing comfortably, saturating 95% on room air.? Pain control History of CVA: no new cva,?continue home meds. History of diabetes:?fs controlled,Insulin sliding scale History of hyperlipidemia : Continue home statin History of mood disorder: Continue home medications. ?DVT prophylaxis:? SCD boots patient's son on the phone number [phone]-called and message left. Quality Stroke Does the patient have a stroke diagnosis?: No VTE Prior VTE?: No VTE Risk Level:: Medical - moderate - high VTE Device Contraindication: Treatment Not Indicated VTE Drug Contraindication: N/A - Med Ordered
[2021-11-23] MEDS: Dextrose 5 % and 0.45 % NaCl 1,000 ML 50 ML IVCONT (09:52)
--- NOTE | 2021-11-23 13:18 | PC.NURSE ---
this chart writer assumed care of this pt at 1210. pt alert and oriented, denies pain. he denies sob/headache/dizziness. no abd pain. Nephrology at bedside.
[2021-11-23 13:37] LABS: Glucose, Whole Blood 127 mg/dL (60-115)
--- NOTE | 2021-11-23 13:40 | PC.NURSE ---
surgery consult done by ROMIE Ballard. no complaints.
--- NOTE | 2021-11-23 13:59 | P.CNNE_ITS ---
History of Present Illness Data of Consult Service Date: 11/23/21 Primary Care Provider: Jp Chan MD [facility] Reason for consult: Hand weakness 71 years old man with underlying history of alcoholic dementia fell down at home and injured his right elbow area. After that he complained of right hand and arm weakness and this consultation was requested. In emergency room the ER physician tried to rule out stroke. Noncontrast head CT did not reveal any significant abnormality per Review of Systems Review of Systems: No recent cold or flu-like illness no speech or language difficulty that was new. [facility] Past Medical History Medical History (Updated 11/23/21 @ 14:02 by Sharmin Chapman MD) CVA (cerebral vascular accident) Dementia HTN (hypertension) Hyperlipidemia Myocardial infarct, old NIDDY (non-insulin dependent diabetes mellitus in young) Social History Social History Alcohol intake: unknown Patient Tobacco Use Status: Tobacco use Unknown Advance Directives: Yes Advance Directives on File: Yes Advance Directives Date on File: 03/21/21 service: No Current occupational status: retired Current occupation: rt handed Meds Allergies Allergy/AdvReac Type Severity Reaction Status Date / Time No Known Allergies Allergy Verified 11/19/21 18:20 [No Known Allergies*] Active Medications: Current Medications Acetaminophen (Acetaminophen 325 Mg Tablet) 650 mg PO Q6H PRN PRN Reason: Pain, Mild (Pain Scale 1-3) Last Admin: 11/23/21 04:41 Dose: 650 mg Documented by: Aspirin (Aspirin Enteric Coated 81 Mg Tablet.) 81 mg PO DAILY [facility] Last Admin: 11/23/21 07:52 Dose: 81 mg Documented by: Atorvastatin Calcium (Atorvastatin Calcium 40 Mg Tablet) 40 mg PO BEDTIME [facility] Last Admin: 11/23/21 01:18 Dose: 40 mg Documented by: Cyanocobalamin (Cyanocobalamin (Vitamin B-12) 1,000 Mcg Tablet) 1,000 mcg PO DAILY [facility] Last Admin: 11/23/21 07:51 Dose: 1,000 mcg Documented by: Dextrose (Dextrose 50 % 25 Gm/50 Ml Syringe) 25 gm IVPUSH Q15M PRN; Protocol PRN Reason: per Hypoglycemia Standing Ord. Divalproex Sodium (Divalproex Sodium Er 500 Mg Tab.Er.24h) 1,000 mg PO BEDTIME [facility] Last Admin: 11/23/21 01:18 Dose: 1,000 mg Documented by: Escitalopram Oxalate (Escitalopram Oxalate 10 Mg Tablet) 10 mg PO DAILY [facility] Last Admin: 11/23/21 07:52 Dose: 10 mg Documented by: Gabapentin (Gabapentin 300 Mg Capsule) 300 mg PO QID [facility] Last Admin: 11/23/21 07:52 Dose: 300 mg Documented by: Glucose (Glucose Gel 15 Gm Gel..Gram.) 15 gm PO Q15M PRN; Protocol PRN Reason: per Hypoglycemia Standing Ord. Dextrose/Sodium Chloride (D51/2ns) 1,000 mls @ 50 mls/hr IVCONT .Q20H [facility] Last Admin: 11/23/21 09:52 Dose: 50 mls/hr Documented by: Insulin Human Lispro (Insulin Lispro 100 Unit/Ml 3 Ml Vial) 0 unit SUBCUT QIDACHS [facility]; Protocol Last Admin: 11/23/21 13:28 Dose: Not Given Documented by: Lorazepam (Lorazepam 0.5 Mg Tablet) 0.5 mg PO TID PRN PRN Reason: Anxiety Melatonin (Melatonin 3 Mg Tablet) 6 mg PO BEDTIME PRN PRN Reason: Insomnia Metoprolol Succinate (Metoprolol Succinate Er 50 Mg Tab.Er.24h) 50 mg PO BEDTIME [facility]; Protocol Last Admin: 11/23/21 03:06 Dose: 50 mg Documented by: Omeprazole (Omeprazole 20 Mg Capsule.Dr) 20 mg PO DAILY@0630 [facility] Last Admin: 11/23/21 07:52 Dose: 20 mg Documented by: Risperidone (Risperidone 0.25 Mg Tablet) 0.25 mg PO BEDTIME [facility] Last Admin: 11/23/21 01:17 Dose: 0.25 mg Documented by: Senna (Sennosides 8.6 Mg Tablet) 17.2 mg PO BEDTIME PRN PRN Reason: Constipation Sodium Chloride (0.9 % Sodium Chloride Flush 3 Ml Syringe) 3 ml IVFLUSH QSHIFT [facility] Last Admin: 11/23/21 07:52 Dose: 3 ml Documented by: Zolpidem Tartrate (Zolpidem Tartrate 5 Mg Tablet) 5 mg PO BEDTIME PRN PRN Reason: insomnia Last Admin: 11/23/21 01:17 Dose: 5 mg Documented by: Home Medications Medication Instructions Recorded Confirmed Last Taken Type atorvastatin 40 mg tablet 40 mg PO BEDTIME 11/27/20 11/22/21 11/21/21 History citalopram 20 mg tablet 20 mg PO DAILY 11/27/20 11/22/21 11/22/21 History cyanocobalamin (vitamin B-12) 1,000 mcg PO DAILY 11/27/20 11/22/21 11/22/21 History 1,000 mcg tablet (Vitamin B-12) divalproex 500 mg tablet,extended 1,000 mg PO BEDTIME 11/27/20 11/22/21 11/21/21 History release 24 hr lisinopril 20 mg tablet 20 mg PO BEDTIME 11/27/20 11/22/21 11/21/21 History lorazepam 0.5 mg tablet 0.5 mg PO TID PRN 11/27/20 11/22/21 11/21/21 History metformin 500 mg tablet 500 mg PO BID 11/27/20 11/22/21 11/22/21 History metoprolol succinate 50 mg 50 mg PO BEDTIME 11/27/20 11/22/21 11/21/21 History tablet,extended release 24 hr omeprazole 20 mg capsule,delayed 20 mg PO DAILY 11/27/20 11/22/21 11/22/21 History release risperidone 0.25 mg tablet 0.25 mg PO BEDTIME 11/27/20 11/22/21 11/21/21 History zolpidem 5 mg tablet 5 mg PO BEDTIME PRN 11/27/20 11/22/21 11/21/21 History gabapentin 300 mg capsule 300 mg PO QID 03/20/21 11/22/21 11/22/21 History acetaminophen 325 mg tablet 2 tab PO Q4H PRN 11/22/21 11/22/21 Unknown History Physical Exam Vital Signs: Vital Signs: Last Vital Signs Temp 97.9 F 11/23/21 05:35 Pulse 65 11/23/21 12:15 Resp 13 11/23/21 12:15 BP 164/81 H 11/23/21 12:15 Pulse Ox 98 11/23/21 12:15 BMI result Body Mass Index 30.7 Neuro: Other: Alert and awake with normal spontaneity of speech fluency comprehension and affect. Speech was tremulous. Moderate tremor was noted in upper extremities. Strength and hand was full. Right elbow area and arm were wrapped in bandage. Face was symmetrical. Visual josé are full. Extraocular muscles were intact. Plantars were flexor. Results Labs CBC & Chem 7: 11/23/21 07:11 11/23/21 07:11 Labs: Short CBC 11/22/21 11/23/21 Range/Units 17:02 07:11 WBC 4.9 4.3 L (4.8-10.8) X10*3/uL Hgb 11.8 L 12.2 L (14.0-18.0) g/dl Hct 34.0 L 35.9 L (42.0-52.0) % Plt Count 115 L 105 L (160-400) X10*3/uL BMP 11/22/21 11/23/21 17:02 07:11 Sodium 138 147 H Potassium 4.2 4.7 Chloride 103 111 H Carbon Dioxide 29 30 H BUN 17 H D 18 H Creatinine 0.86 0.72 Calcium 8.7 9.0 Urine 11/22/21 Range/Units 18:17 Urine Color YELLOW Urine Appearance CLEAR Urine pH 6.0 (5.0-8.0) Ur Specific [place] 1.020 (1.005-1.025) Urine Protein NEG (NEG-TRACE) MG/DL Urine Glucose (UA) NEG (NEG) MG/DL Noncontrast head CT revealed diffuse atrophy with no obvious acute lesion. Assessment and Plan (1) Arm weakness: Status: Acute 71 years old man with underlying history of alcoholic dementia tremor and unsteadiness who fell and sustained injury to his right arm. Weakness was rel ated to that injury and there was no indication of a stroke. There was no obvious indication of focal neuropathy at this time Procedures Date of Service Date of Service: 11/23/21
[2021-11-23 14:00] LABS: Sodium 139 mmol/L (135-145)
--- NOTE | 2021-11-23 15:33 | P.CONGS_ITS ---
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 Patient also had a recent fall on Sunday 11/19 when he presented to [facility] and received sutures along his back after falling down 1 stair. Patient had also received with sutures along his right upper extremity. Patient was subsequently discharged from [facility] [place] and returns today for the above reason. Patient was seen by neurology who recommended initiating aspirin for treatment of presumed TIA While patient was in hospital he complained of some right-sided back pain. A CT scan of the chest was performed which showed right sided mildly displaced rib fractures along the 10th, 11th and 12th ribs with a very small amount of pleural fluid which may or may not be blood concerning for hemothorax for which thoracic surgery was c onsulted for. During my examination with patient he denies any shortness of breath at rest however does admit to some difficulty with coughing and has some mild pain along the backside of his right chest wall.Patient does inform me that the weakness along his right arm has greatly improved.Remaining 10 point review of systems negative Review of Systems Review of Systems: No recent cold or flu-like illness no speech or language difficulty that was new. Yes all other systems are reviewed and are negative [facility] Past Medical History Medical History (Updated 11/23/21 @ 15:35 by ROMIE Moran) CVA (cerebral vascular accident) Dementia HTN (hypertension) Hyperlipidemia Myocardial infarct, old NIDDY (non-insulin dependent diabetes mellitus in young) Social History Social History Alcohol intake: unknown Patient Tobacco Use Status: Tobacco use Unknown Advance Directives: Yes Advance Directives on File: Yes Advance Directives Date on File: 03/21/21 service: No Current occupational status: retired Current occupation: rt handed Meds Allergies Allergy/AdvReac Type Severity Reaction Status Date / Time No Known Allergies Allergy Verified 11/19/21 18:20 [No Known Allergies*] Active Medications: Current Medications Acetaminophen (Acetaminophen 325 Mg Tablet) 650 mg PO Q6H PRN PRN Reason: Pain, Mild (Pain Scale 1-3) Last Admin: 11/23/21 04:41 Dose: 650 mg Documented by: Aspirin (Aspirin Enteric Coated 81 Mg Tablet.) 81 mg PO DAILY [facility] Last Admin: 11/23/21 07:52 Dose: 81 mg Documented by: Atorvastatin Calcium (Atorvastatin Calcium 40 Mg Tablet) 40 mg PO BEDTIME [facility] Last Admin: 11/23/21 01:18 Dose: 40 mg Documented by: Cyanocobalamin (Cyanocobalamin (Vitamin B-12) 1,000 Mcg Tablet) 1,000 mcg PO DAILY [facility] Last Admin: 11/23/21 07:51 Dose: 1,000 mcg Documented by: Dextrose (Dextrose 50 % 25 Gm/50 Ml Syringe) 25 gm IVPUSH Q15M PRN; Protocol PRN Reason: per Hypoglycemia Standing Ord. Divalproex Sodium (Divalproex Sodium Er 500 Mg Tab.Er.24h) 1,000 mg PO BEDTIME [facility] Last Admin: 11/23/21 01:18 Dose: 1,000 mg Documented by: Escitalopram Oxalate (Escitalopram Oxalate 10 Mg Tablet) 10 mg PO DAILY [facility] Last Admin: 11/23/21 07:52 Dose: 10 mg Documented by: Gabapentin (Gabapentin 300 Mg Capsule) 300 mg PO QID [facility] Last Admin: 11/23/21 14:13 Dose: 300 mg Documented by: Glucose (Glucose Gel 15 Gm Gel..Gram.) 15 gm PO Q15M PRN; Protocol PRN Reason: per Hypoglycemia Standing Ord. Dextrose/Sodium Chloride (D51/2ns) 1,000 mls @ 50 mls/hr IVCONT .Q20H [facility] Last Admin: 11/23/21 09:52 Dose: 50 mls/hr Documented by: Insulin Human Lispro (Insulin Lispro 100 Unit/Ml 3 Ml Vial) 0 unit SUBCUT QIDACHS [facility]; Protocol Last Admin: 11/23/21 13:28 Dose: Not Given Documented by: Lorazepam (Lorazepam 0.5 Mg Tablet) 0.5 mg PO TID PRN PRN Reason: Anxiety Melatonin (Melatonin 3 Mg Tablet) 6 mg PO BEDTIME PRN PRN Reason: Insomnia Metoprolol Succinate (Metoprolol Succinate Er 50 Mg Tab.Er.24h) 50 mg PO BEDTIME [facility]; Protocol Last Admin: 11/23/21 03:06 Dose: 50 mg Documented by: Omeprazole (Omeprazole 20 Mg Capsule.) 20 mg PO DAILY@0630 [facility] Last Admin: 11/23/21 07:52 Dose: 20 mg Documented by: Risperidone (Risperidone 0.25 Mg Tablet) 0.25 mg PO BEDTIME [facility] Last Admin: 11/23/21 01:17 Dose: 0.25 mg Documented by: Senna (Sennosides 8.6 Mg Tablet) 17.2 mg PO BEDTIME PRN PRN Reason: Constipation Sodium Chloride (0.9 % Sodium Chloride Flush 3 Ml Syringe) 3 ml IVFLUSH QSHIFT [facility] Last Admin: 11/23/21 15:30 Dose: Not Given Documented by: Zolpidem Tartrate (Zolpidem Tartrate 5 Mg Tablet) 5 mg PO BEDTIME PRN PRN Reason: insomnia Last Admin: 11/23/21 01:17 Dose: 5 mg Documented by: Home Medications Medication Instructions Recorded Confirmed Last Taken Type atorvastatin 40 mg tablet 40 mg PO BEDTIME 11/27/20 11/22/21 11/21/21 History citalopram 20 mg tablet 20 mg PO DAILY 11/27/20 11/22/21 11/22/21 History cyanocobalamin (vitamin B-12) 1,000 mcg PO DAILY 11/27/20 11/22/21 11/22/21 History 1,000 mcg tablet (Vitamin B-12) divalproex 500 mg tablet,extended 1,000 mg PO BEDTIME 11/27/20 11/22/21 11/21/21 History release 24 hr lisinopril 20 mg tablet 20 mg PO BEDTIME 11/27/20 11/22/21 11/21/21 History lorazepam 0.5 mg tablet 0.5 mg PO TID PRN 11/27/20 11/22/21 11/21/21 History metformin 500 mg tablet 500 mg PO BID 11/27/20 11/22/21 11/22/21 History metoprolol succinate 50 mg 50 mg PO BEDTIME 11/27/20 11/22/21 11/21/21 History tablet,extended release 24 hr omeprazole 20 mg capsule,delayed 20 mg PO DAILY 11/27/20 11/22/21 11/22/21 History release risperidone 0.25 mg tablet 0.25 mg PO BEDTIME 11/27/20 11/22/21 11/21/21 History zolpidem 5 mg tablet 5 mg PO BEDTIME PRN 11/27/20 11/22/21 11/21/21 History gabapentin 300 mg capsule 300 mg PO QID 03/20/21 11/22/21 11/22/21 History acetaminophen 325 mg tablet 2 tab PO Q4H PRN 11/22/21 11/22/21 Unknown History Physical Exam Vital Signs: Vital Signs: Last Vital Signs Temp 97.9 F 11/23/21 05:35 Pulse 65 11/23/21 12:15 Resp 13 11/23/21 12:15 BP 164/81 H 11/23/21 12:15 Pulse Ox 98 11/23/21 12:15 BMI result Body Mass Index 30.7 Neuro: Other: Alert and awake with normal spontaneity of speech fluency comprehension and aff ect. Speech was tremulous. Moderate tremor was noted in upper extremities. Strength and hand was full. Right elbow area and arm were wrapped in bandage. Face was symmetrical. Visual josé are full. Extraocular muscles were intact. Plantars were flexor. Results Labs Result diagrams: 11/23/21 07:11 11/23/21 13:33 Labs: Abnormal lab results 11/22/21 11/22/21 11/22/21 Range/Units 16:35 17:02 17:02 WBC (4.8-10.8) X10*3/uL RBC 3.97 L (4.60-5.80) X10*6/uL Hgb 11.8 L (14.0-18.0) g/dl Hct 34.0 L (42.0-52.0) % Plt Count 115 L (160-400) X10*3/uL Immature Gran % (Auto) (0.0-0.4) % Neut % (Auto) 75.9 H (45-73) % Lymph % (Auto) 12.7 L (20-40) % [place] % (Auto) (2-11) % Lymph # (Auto) 0.6 L (1.2-4.9) X10*3/uL Sodium (135-145) mmol/L Chloride (96-108) mmol/L Carbon Dioxide (22-29) mmol/L Anion Gap 10 L (12-20) BUN 17 H D (9-16) mg/dL POC Glucose 194 H (60-115) mg/dL Random Glucose 204 H D (60-115) mg/dL 11/22/21 11/23/21 11/23/21 Range/Units 21:47 07:11 07:11 WBC 4.3 L (4.8-10.8) X10*3/uL RBC 4.18 L (4.60-5.80) X10*6/uL Hgb 12.2 L (14.0-18.0) g/dl Hct 35.9 L (42.0-52.0) % Plt Count 105 L (160-400) X10*3/uL Immature Gran % (Auto) 0.5 H (0.0-0.4) % Neut % (Auto) (45-73) % Lymph % (Auto) (20-40) % [place] % (Auto) 11.7 H (2-11) % Lymph # (Auto) 1.1 L (1.2-4.9) X10*3/uL Sodium 147 H (135-145) mmol/L Chloride 111 H (96-108) mmol/L Carbon Dioxide 30 H (22-29) mmol/L Anion Gap 11 L (12-20) BUN 18 H (9-16) mg/dL POC Glucose 165 H (60-115) mg/dL Random Glucose 153 H (60-115) mg/dL 11/23/21 11/23/21 Range/Units 07:32 13:24 WBC (4.8-10.8) X10*3/uL RBC (4.60-5.80) X10*6/uL Hgb (14.0-18.0) g/dl Hct (42.0-52.0) % Plt Count (160-400) X10*3/uL Immature Gran % (Auto) (0.0-0.4) % Neut % (Auto) (45-73) % Lymph % (Auto) (20-40) % [place] % (Auto) (2-11) % Lymph # (Auto) (1.2-4.9) X10*3/uL Sodium (135-145) mmol/L Chloride (96-108) mmol/L Carbon Dioxide (22-29) mmol/L Anion Gap (12-20) BUN (9-16) mg/dL POC Glucose 137 H 127 H (60-115) mg/dL Random Glucose (60-115) mg/dL Short CBC 11/22/21 11/23/21 Range/Units 17:02 07:11 WBC 4.9 4.3 L (4.8-10.8) X10*3/uL Hgb 11.8 L 12.2 L (14.0-18.0) g/dl Hct 34.0 L 35.9 L (42.0-52.0) % Plt Count 115 L 105 L (160-400) X10*3/uL BMP 11/22/21 11/23/21 11/23/21 17:02 07:11 13:33 Sodium 138 147 H 139 Potassium 4.2 4.7 Chloride 103 111 H Carbon Dioxide 29 30 H BUN 17 H D 18 H Creatinine 0.86 0.72 Calcium 8.7 9.0 Urine 11/22/21 Range/Units 18:17 Urine Color YELLOW Urine Appearance CLEAR Urine pH 6.0 (5.0-8.0) Ur Specific [place] 1.020 (1.005-1.025) Urine Protein NEG (NEG-TRACE) MG/DL Urine Glucose (UA) NEG (NEG) MG/DL All other labs normal. 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 .Rib fractures: CT scan showed displaced right 04/15/2012 rib fractures.? Patient had fallen 11/19/2021.? Noted small bruise on the skin with sutures in place.? CT scan also showed possible small pleural effusion concerning for hemothorax.? Due to the positioning of his right-sided rib fractures being so posterior and close to the spine he is not a surgical candidate for rib plating. Recommend conservative measures and pain control at this time. Would repeat chest x-ray this evening at 7 PM as well as tomorrow morning at 8 AM to ensure no worsening pleural effusion/hemothorax occurs. Okay to begin aspirin regimen for his TIA. Pain control Incentive spirometry ?DVT prophylaxis:? SCD boots patient's son on the phone number [phone] Procedures Date of Service Date of Service: 11/23/21
[2021-11-23 15:58] LABS: Chloride 105 mmol/L (96-108); Sodium 140 mmol/L (135-145)
[2021-11-23 16:00] LABS: Anion Gap 15 (12-20)
[2021-11-23 16:20] LABS: Osmolality, Serum 295 mosm/kg (281-305)
[2021-11-23 17:09] LABS: Glucose, Whole Blood 126 mg/dL (60-115)
[2021-11-23] MEDS: Melatonin 3 MG TABLET 6 MG PO (19:50)
[2021-11-23 20:52] LABS: Glucose, Whole Blood 149 mg/dL (60-115)
[2021-11-24 00:14] VITALS: BP 121/46; PULSE 68; RESP 22; O2SAT 95
--- NOTE | 2021-11-24 02:51 | PC.NURSE ---
REport given to Ana CristinaRN, pt transported via w/c at 0250 by staff
[2021-11-24 03:01] VITALS: BMI 29.9
[2021-11-24 03:02] VITALS: BP 157/76; PULSE 73; RESP 17; TEMP 36.3; O2SAT 94
[2021-11-24] MEDS: Omeprazole 20 MG CAPSULE.DR PO (06:10)
[2021-11-24 07:19] VITALS: BP 164/76; PULSE 67; RESP 20; TEMP 36.1; O2SAT 96
[2021-11-24 07:39] LABS: Glucose, Whole Blood 134 mg/dL (60-115)
[2021-11-24] MEDS: Aspirin Enteric Coated 81 MG TABLET.DR PO (07:43)
[2021-11-24] MEDS: Escitalopram Oxalate 10 MG TABLET PO (07:44)
[2021-11-24] MEDS: Gabapentin 300 MG CAPSULE PO ×2 (07:44→12:09)
[2021-11-24] MEDS: 0.9 % Sodium Chloride Flush 3 ML SYRINGE IVFLUSH (07:44)
[2021-11-24] MEDS: Cyanocobalamin (Vitamin B-12) 1,000 MCG TABLET 1000 MCG PO (07:44)
[2021-11-24] MEDS: LORazepam 0.5 MG TABLET PO (07:52)
[2021-11-24 08:00] VITALS: BP 153/69; PULSE 80
--- NOTE | 2021-11-24 08:40 | P.PNIM_ITS ---
Subjective Subjective Date of Service: 11/24/21 Interval History: TIA, Dizziness, rib fractures Review of Systems Patient seems to be improving, Denies any chest pain or shortness of breath or abdominal pain or fever chills or cough or phlegm Physical Exam Vital Signs: Vital Signs: Last Vital Signs Temp 97.0 F 11/24/21 07:19 Pulse 67 11/24/21 07:19 Resp 20 11/24/21 07:19 BP 164/76 H 11/24/21 07:19 Pulse Ox 96 11/24/21 07:19 BMI result Body Mass Index 29.9 Appearance: Alert.? Oriented X3.? not in distress.? cvs: rrr, [id number] res: fair air netry,no rhonchii or wheezing abd: no rebound or guarding ,nt, bs present. ext pulses present , no cyanosis . neuro: axo3 , nonfocal Objective Data Active Medications Acetaminophen (Acetaminophen 325 Mg Tablet) 650 mg PO Q6H PRN PRN Reason: Pain, Mild (Pain Scale 1-3) Last Admin: 11/23/21 04:41 Dose: 650 mg Documented by: RJ Aspirin (Aspirin Enteric Coated 81 Mg Tablet.) 81 mg PO DAILY [facility] Last Admin: 11/24/21 07:43 Dose: 81 mg Documented by: GWEN Atorvastatin Calcium (Atorvastatin Calcium 40 Mg Tablet) 40 mg PO BEDTIME [facility] Last Admin: 11/23/21 19:50 Dose: 40 mg Documented by: SHANIQUE Cyanocobalamin (Cyanocobalamin (Vitamin B-12) 1,000 Mcg Tablet) 1,000 mcg PO DAILY [facility] Last Admin: 11/24/21 07:44 Dose: 1,000 mcg Documented by: GWEN Dextrose (Dextrose 50 % 25 Gm/50 Ml Syringe) 25 gm IVPUSH Q15M PRN; Protocol PRN Reason: per Hypoglycemia Standing Ord. Divalproex Sodium (Divalproex Sodium Er 500 Mg Tab.Er.24h) 1,000 mg PO BEDTIME [facility] Last Admin: 11/23/21 19:47 Dose: 1,000 mg Documented by: SHANIQUE Escitalopram Oxalate (Escitalopram Oxalate 10 Mg Tablet) 10 mg PO DAILY [facility] Last Admin: 11/24/21 07:44 Dose: 10 mg Documented by: GWEN Gabapentin (Gabapentin 300 Mg Capsule) 300 mg PO QID [facility] Last Admin: 11/24/21 07:44 Dose: 300 mg Documented by: GWEN Glucose (Glucose Gel 15 Gm Gel..Gram.) 15 gm PO Q15M PRN; Protocol PRN Reason: per Hypoglycemia Standing Ord. Insulin Human Lispro (Insulin Lispro 100 Unit/Ml 3 Ml Vial) 0 unit SUBCUT QIDACHS [facility]; Protocol Last Admin: 11/24/21 07:38 Dose: Not Given Documented by: GWEN Non-Admin Reason: No Insulin Coverage Lorazepam (Lorazepam 0.5 Mg Tablet) 0.5 mg PO TID PRN PRN Reason: Anxiety Last Admin: 11/24/21 07:52 Dose: 0.5 mg Documented by: GWEN Melatonin (Melatonin 3 Mg Tablet) 6 mg PO BEDTIME PRN PRN Reason: Insomnia Last Admin: 11/23/21 19:50 Dose: 6 mg Documented by: SHANIQUE Metoprolol Succinate (Metoprolol Succinate Er 50 Mg Tab.Er.24h) 50 mg PO BEDTIME [facility]; Protocol Last Admin: 11/23/21 19:47 Dose: 50 mg Documented by: SHANIQUE Comments: H=80 JF=535/59 Omeprazole (Omeprazole 20 Mg Capsule.Dr) 20 mg PO DAILY@0630 [facility] Last Admin: 11/24/21 06:10 Dose: 20 mg Documented by: KRISTIAN Risperidone (Risperidone 0.25 Mg Tablet) 0.25 mg PO BEDTIME [facility] Last Admin: 11/23/21 19:50 Dose: 0.25 mg Documented by: SHANIQUE Senna (Sennosides 8.6 Mg Tablet) 17.2 mg PO BEDTIME PRN PRN Reason: Constipation Sodium Chloride (0.9 % Sodium Chloride Flush 3 Ml Syringe) 3 ml IVFLUSH QSHIFT [facility] Last Admin: 11/24/21 07:44 Dose: 3 ml Documented by: GWEN Zolpidem Tartrate (Zolpidem Tartrate 5 Mg Tablet) 5 mg PO BEDTIME PRN PRN Reason: insomnia Last Admin: 11/23/21 01:17 Dose: 5 mg Documented by: RJ Labs CBC & Chem 7: 11/23/21 07:11 11/23/21 13:33 Labs: Laboratory Results - last 24 hr 11/23/21 11/23/21 11/23/21 07:11 13:24 15:51 Anion Gap 15 POC Glucose 127 H Osmolality 295 11/23/21 11/23/21 11/24/21 17:02 20:48 07:29 Anion Gap POC Glucose 126 H 149 H 134 H Osmolality Assessment and Plan (1) Arm weakness: Status: Acute (2) Orthostatic hypotension: Status: Acute (3) Multiple rib fractures: Status: Acute Plan 71-year-old male with a past medical history of hypertension, hyperlipidemia, diabetes, CAD, 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 Right hand weakness:?possible related to fall. CT head showed no acute findings Carotid duplex -seems fine will dc echo , no indication of a stroke as per neuro. PT-receomended rehab/ot eval for fall ? Dizziness: Patient orthostatics positive.? EKG nonischemic.? Troponin ?flat ?orthostatic hypotension:? blood pressure moniter .? Fall precautions.? repeat orthostaisis continue metoprolol/hold lisinopril. Rib fractures: CT scan showed displaced right 04/15/2012 rib fractures.? Patient had fallen 11/19/2021.? Noted small bruise on the skin.? CT scan also showed possible small pleural effusion concerning for hemothorax.? Spoke to ? Roberto Kenny from thoracic surgery- Nondisplaced fractures right posterior 10th and 11th ribs. Small right pleural effusion but no pneumothorax. repeat cxr this pm and in tomorrow am Patient currently breathing comfortably, saturating 95% on room air.? Pain control History of CVA: no new cva,?continue home meds. History of diabetes:?fs controlled,Insulin sliding scale History of hyperlipidemia : Continue home statin History of mood disorder: Continue home medications. ?DVT prophylaxis:? SCD boots patient's son on the phone number [phone]-called and message left. Quality Stroke Does the patient have a stroke diagnosis?: No VTE Prior VTE?: No VTE Risk Level:: Medical - moderate - high VTE Device Contraindication: Treatment Not Indicated VTE Drug Contraindication: N/A - Med Ordered
[2021-11-24 11:53] VITALS: BP 140/75; PULSE 66; RESP 16; TEMP 36.2; O2SAT 97
[2021-11-24 12:00] LABS: Glucose, Whole Blood 138 mg/dL (60-115)
[2021-11-24] MEDS: Lidocaine 4 % Patch ADH..PATCH 1 PATCH TRANSDERMA (12:08)
--- NOTE | 2021-11-24 12:11 | MHC.CM.PN ---
PT CLEARED TO DC ONCE A REHAB BED IS SECURED. UPDATES SENT TO [facility] AWAITING RESPONSES
--- NOTE | 2021-11-24 13:12 | PM.PNNEP ---
Subjective Subjective Date of Service: 11/24/21 Interval history: TIA, Dizziness, rib fractures Feels better Physical Exam Vital Signs: Vital Signs: Last Vital Signs Temp 97.2 F 11/24/21 11:53 Pulse 66 11/24/21 11:53 Resp 16 11/24/21 11:53 BP 140/75 H 11/24/21 11:53 Pulse Ox 97 11/24/21 11:53 BMI result Body Mass Index 29.9 Appearance: Alert.? Oriented X3.? not in distress.? cvs: rrr, [id number] res: fair air netry,no rhonchii or wheezing abd: no rebound or guarding ,nt, bs present. ext pulses present , no cyanosis . neuro: axo3 , nonfocal Objective Data Labs CBC & Chem 7: 11/23/21 07:11 11/23/21 13:33 Labs: Laboratory Results - last 24 hr 11/23/21 11/23/21 11/23/21 07:11 13:24 13:33 Sodium 140 139 Chloride 105 Anion Gap 15 POC Glucose 127 H Osmolality 11/23/21 11/23/21 11/23/21 15:51 17:02 20:48 Sodium Chloride Anion Gap POC Glucose 126 H 149 H Osmolality 295 11/24/21 11/24/21 07:29 11:56 Sodium Chloride Anion Gap POC Glucose 134 H 138 H Osmolality Procedures Date of Service Date of Service: 11/24/21 Assessment & Plan Assessment and plan (1) Orthostatic hypotension: Status: Acute Plan Bp is stable Restart lowerdose of DEBORA - Lisinopril 5 mg daily Time Spent With Patient Time: Total time spent is greater than 50% in coordination of care (as documented) at patient's floor/unit and/or counseling patient: Progress Note: Quality Stroke Does the patient have a stroke diagnosis?: No
--- NOTE | 2021-11-24 13:14 | P.DS_ITS ---
DS: Providers Provider Date of Service: 11/24/21 Date of admission: 11/22/21 20:26 Primary care physician: Jp Chan MD Consults: 11/22/21 20:27 Consult to Neurology Routine Consulting Provider: Sharmin Chapman Reason for consultation: right hand weakness 11/22/21 20:35 Consult to Thoracic Surgery Routine Consulting Provider: Jasvir Kenny Reason for consultation: Displaced 10,11,12 rib fxl ?mld right hemothorax 11/23/21 07:53 Consult to Nephrology Routine Consulting Provider: Davi Alberts Reason for consultation: orthostatic hypotension Has provider been notified: No DS: Diagnosis Discharge Diagnosis (1) Arm weakness: Status: Acute (2) Orthostatic hypotension: Status: Acute (3) Multiple rib fractures: Status: Acute DS: Summary Hospital Course Hospital Course: ?71-year-old male with a past medical history of hypertension, hyperlipidemia, diabetes, CAD, 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 Patient reported that today he noticed decreased sensation, feeling funny in his right upper extremity when he was trying to take his pills.? Denies any headaches or blurry visions.? Denies any chest pain palpitations.? Denies any numbness tingling or weakness in his bilateral lower extremities.? At the time of my interview patient reported that her symptoms slightly improved but still feels funny in his right upper extremity.? Denies any fall? Today.? But feels dizzy ?patient reported that he had a fall couple days ago, fell onto the glass, had laceration of the skin; Reports pain in the back where he hit from the fall -right lateral chest wall; reports he had ? Stitches done.? ? Review of all other systems is negative except mentioned above ER course: Per ER team patient noted to have 4/5 strength in his right upper extremity; CT head showed no acute findings; patient also had pain in his right lateral chest wall; CT? abdomen pelvis was done which showed - posterior 04/15/2012 rib fractures with small right pleural effusion concerning for hemothorax; also noted cardiothoracic surgery who mentioned he will be evaluated in the morning and suggested admission to the [facility]. Patient currently breathing comfortably.? ER team also notified neurology-who recommended aspirin and did not recommend any MRI.? Patient was given aspirin.? Admitted for further management. Hospital course: Patient came to the hospital because of possible right arm weakness-CT head seems fine, carotid also fine, seen by Neurology less likely TIA more likely his symptoms due to fall. Patient had a fall at home few days back-has rib fractures, mechanical fall: Patient has chest imaging and had some mild effusion on the rib fracture side, seen by his thoracic surgery: Repeat imaging seems fine patient is asymptomatic-currently recommended symptomatic treatment with pain medications, incentive spirometry and chest physiotherapy. Also added lidocaine patch. Patient is comfortable. Due to the positioning of his right-sided rib fractures being so posterior and close to the spine he is not a surgical candidate for rib plating. His morning chest x-ray showed no right-sided pleural effusion which was previously attributed to his right-sided rib fractures.? Please repeat chest imaging in 1 week in rehab recheck pleural effusion area. patient can return to the emergency department should he develop any new or worsening shortness of breath for further evaluation. d/w his son no hx of bleeding but has hx cva in the past -on this admission started on aspirin-patient son wants to it to be continued, reevaluate in rehab upon discharge for fall and further use of aspirin accordingly. Pain control Incentive spirometry Orthostasis : Seen by Nephrology,Currently patient seems asymptomatic initially the lisinopril was on hold: We started with the lower dose lisinopril. Monitor closely at rehab further management outpatient as per rehab. Above management discussed with patient family-son in detail he understand and in agreement with the plan. Time Spent with Patient Time attestation: Total time spent providing and/or coordinating discharge services: Discharge coordination time: Greater than 30 minutes Quality: Safe Use of Opioids Does Pt have an Active Cancer Diagnosis on the Problem List?: No Quality: Stroke Does the patient have a stroke diagnosis?: No Physical Exam Vital Signs: Vital Signs: Last Vital Signs Temp 97.2 F 11/24/21 11:53 Pulse 66 11/24/21 11:53 Resp 16 11/24/21 11:53 BP 140/75 H 11/24/21 11:53 Pulse Ox 97 11/24/21 11:53 BMI result Body Mass Index 29.9 ?Appearance: Alert.? Oriented X3.? not in distress.? cvs: rrr, [id number], right sided lower rib cage area discomfort. res: fair air netry,no rhonchii or wheezing abd: no rebound or guarding ,nt, bs present. ext pulses present , no cyanosis . neuro: axo3 , nonfocal DS: Data Data Completed and Pending Labs on day of discharge: Laboratory Results - last 24 hr 11/23/21 11/23/21 11/23/21 07:11 13:24 13:33 Sodium 140 139 Chloride 105 Anion Gap 15 POC Glucose 127 H Osmolality 11/23/21 11/23/21 11/23/21 15:51 17:02 20:48 Sodium Chloride Anion Gap POC Glucose 126 H 149 H Osmolality 295 11/24/21 11/24/21 07:29 11:56 Sodium Chloride Anion Gap POC Glucose 134 H 138 H Osmolality Additional Comments Additional comments: CT/CT chest wo con IMPRESSION: Nondisplaced fractures right posterior 10th and 11th ribs. Small right pleural effusion but no pneumothorax. ? Small pulmonary nodules. ? Fleischner guidelines were followed. XR/XR chest 1V IMPRESSION: No significant acute parenchymal disease. ? Known right rib fractures not identified on plain film study. No significant change from prior chest x-ray of November 23, 2021 Discharge Plan Discharge Patient Disposition: er SNF Discharge Diagnosis: Dizziness, rib fractures Referrals: [facility] [Outside] - 1 Week Jp Chan MD [Primary Care Provider] - 1 Week Discharge Medications: New lidocaine 5 % adhesive patch,medicated 1 patch topical DAILY Qty: 5 0RF Rx Instructions: leave on most painful area for up to 12 hrs aspirin 81 mg Tablet,Delayed Release (Dr/Ec) 81 mg PO DAILY Qty: 30 0RF Continued atorvastatin 40 mg tablet 40 mg PO BEDTIME 0RF metformin 500 mg tablet 500 mg PO BID 0RF metoprolol succinate 50 mg tablet extended release 24 hr 50 mg PO BEDTIME 0RF cyanocobalamin (vitamin B-12) [Vitamin B-12] 1,000 mcg tablet 1,000 mcg PO DAILY 0RF risperidone 0.25 mg tablet 0.25 mg PO BEDTIME 0RF citalopram 20 mg tablet 20 mg PO DAILY 0RF lorazepam 0.5 mg tablet 0.5 mg PO TID PRN (Reason: Anxiety) 0RF Label Comments: Takes up to 3 tablets at night Rx Instructions: CAN TAKE UP TO 3 divalproex 500 mg tablet extended release 24 hr 1,000 mg PO BEDTIME 0RF omeprazole 20 mg capsule,delayed release(DR/EC) 20 mg PO DAILY 0RF zolpidem 5 mg tablet 5 mg PO BEDTIME PRN (Reason: insomnia) 0RF acetaminophen 325 mg tablet 2 tab PO Q4H PRN (Reason: Pain) 0RF Changed lisinopril 20 mg tablet 5 mg PO BEDTIME Qty: 0 0RF gabapentin 300 mg capsule 200 mg PO QID Qty: 0 0RF Discharge Orders: Discharge Order (Routine); Ordered 11/24/21 Ordered By: Misael Weber Diet: advance to usual diet Activity on Discharge: As tolerated Stand Alone Forms: Patient Portal Discharge page Care Plan Goals: Patient came to the hospital because of possible right arm weakness-CT head seems fine, carotid also fine, seen by Neurology less likely TIA more likely his symptoms due to fall. Patient had a fall at home few days back-has rib fractures, mechanical fall: Patient has chest imaging and had some mild effusion on the rib fracture side, seen by his thoracic surgery: Repeat imaging seems fine patient is asymptomatic-currently recommended symptomatic treatment with pain medications, incentive spirometry and chest physiotherapy. Also added lidocaine patch. Patient is comfortable. Please repeat chest imaging in 1 week in rehab recheck pleural effusion area. Orthostasis : Currently patient seems asymptomatic initially the lisinopril was on hold: We started with the lower dose lisinopril. Monitor closely at rehab further management outpatient as per rehab. Above management discussed with patient family-son in detail he understand and in agreement with the plan. Health Concerns: As above. Plan of Treatment: As above. Assessment: As above. Discharge Date/Time: 11/24/21 16:23
--- NOTE | 2021-11-24 13:56 | MHC.CM.PN ---
[facility] IS OFFERING A BED FOR PT TODAY CM MET WITH PT TO DISCUSS DC PLANS, HE IS AGREEABLE TO PLAN AND ONLY CONCERNED THAT THIS WILL BE STR AND NOT LTC CM EXPLAINED STR COVERAGE PROVIDED BY [employer] CM ALSO CALLED PTS SON, DANE SHAH [phone] HE REPORTS BEING HAPPY TO HEAR PT WILL BE GOING TO STR HE HAS FALLEN TWICE AT HOME RECENTLY AND HIS ONLY BATHROOM IS ON THE SECOND FLOOR. PT WILL DC TO [facility] TODAY AT 1600 HOURS VIA BLS
[2021-11-24 14:14] VITALS: BP 167/69; PULSE 84
[2021-11-24] MEDS: lisinopriL 5 MG TABLET PO (14:32)
--- NOTE | 2021-11-24 16:05 | P.PNTS_ITS ---
Subjective Subjective Date of Service: 11/24/21 Interval history: Patient was seen examined this afternoon. He states that his pain has been well controlled on current analgesics and denies any new or worsening shortness of breath at rest or with exertion. He informs me he has been using incentive spirometer frequently. His morning chest x-ray revealed no detectable right- sided pleural effusion which was attributed to his right-sided rib fractures 10, 11, 12 which are also nondetectable and chest x-ray. Patient was instructed should he develop any increased shortness of breath in the future to please present to the emergency department for further evaluation. Physical Exam Vital Signs: Vital Signs: Last Vital Signs Temp 97.2 F 11/24/21 11:53 Pulse 84 11/24/21 14:14 Resp 16 11/24/21 11:53 BP 167/69 H 11/24/21 14:14 Pulse Ox 97 11/24/21 11:53 BMI result Body Mass Index 29.9 Neuro: Other: Alert and awake with normal spontaneity of speech fluency comprehension and affect. Speech was tremulous. Moderate tremor was noted in upper extremities. Strength and hand was full. Right elbow area and arm were wrapped in bandage. Face was symmetrical. Visual josé are full. Extraocular muscles were intact. Plantars were flexor. 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 .Rib fractures: CT scan showed displaced right 04/15/2012 rib fractures.? Patient had fallen 11/19/2021.? Noted small bruise on the skin with sutures in place.? CT scan also showed possible small pleural effusion concerning for hemothorax.? Due to the positioning of his right-sided rib fractures being so posterior and close to the spine he is not a surgical candidate for rib plating. Recommend conservative measures and pain control at this time. His morning chest x-ray showed no right-sided pleural effusion which was previously attributed to his right-sided rib fractures and a concern for hemothorax. There is also no pneumothorax and rib fractures are nondetectable on x-ray. I personally reviewed these images. From a thoracic surgical point of view patient is okay for discharge and should be instructed to return to the emergency department should he develop any new or worsening shortness of breath for further evaluation. Okay to begin aspirin regimen for his TIA. Pain control Incentive spirometry ?DVT prophylaxis:? SCD boots patient's son on the phone number [phone] Time Spent With Patient Time: Total time spent is greater than 50% in coordination of care (as documented) at patient's floor/unit and/or counseling patient: Quality Stroke Does the patient have a stroke diagnosis?: No VTE Prior VTE?: No VTE Risk Level:: Medical - moderate - high VTE Device Contraindication: Treatment Not Indicated VTE Drug Contraindication: N/A - Med Ordered
--- NOTE | 2021-11-25 15:05 | CONS_ITS ---
DATE OF SERVICE: 11/23/2021 REASON FOR CONSULTATION: Consult requested by the medical team to evaluate and help in management of patient with fluctuating blood pressure. HISTORY OF PRESENT ILLNESS: The patient is a 71-year-old male with past medical history of hypertension, hyperlipidemia, type 2 diabetes mellitus, CVA with residual expressive aphasia, who presents to the hospital with chief complaint of weakness in his right upper extremity. He apparently notices decreased sensation, feeling funny in the right upper extremity. No headache or blurry vision. No numbness, weakness, tingling. He has been feeling dizzy. Denied having any recent falls. He apparently had a fall a couple of days ago. He reports pain in the back where he hit his back due to the fall. In the ER, the patient was hemodynamically stable. Head CT did not show any acute finding. There is some posterior rib fracture. The patient is scheduled to be seen by Neurology. Renal consult has been requested. His blood pressure has been highly fluctuant and as there was a question of dizziness/orthostatic hypotension. PAST MEDICAL HISTORY: History of CVA, dementia, hypertension, hyperlipidemia, history of [place], noninsulin dependent diabetes mellitus. PERSONAL AND SOCIAL HISTORY: The patient does not drink or smoke. ALLERGIES: NO KNOWN DRUG ALLERGIES. MEDICATIONS: At home include atorvastatin, citalopram, vitamin B12 injection, divalproex, lisinopril 20 mg daily, lorazepam, metformin, metoprolol, omeprazole, risperidone, zolpidem, gabapentin 300 mg 4 times a day, and Tylenol. PHYSICAL EXAMINATION: GENERAL: The patient is resting in the bed in the ER. Awake, alert, oriented x3. VITAL SIGNS: Blood pressure was 178/59, pulse 78, afebrile. HEENT: Pupils equal bilaterally to light. No jugular venous distention is noted. NECK: Supple. No thyromegaly is noted. Mucosa dry. There is no scleral icterus or conjunctival congestion. CARDIOVASCULAR SYSTEM: S1, S2 without rub. RESPIRATORY SYSTEM: Air entry decreased in the bases. No crepitation or rhonchi is noted. ABDOMEN: Obese, soft. Bowel sounds normal. EXTREMITIES: No significant edema. LABORATORY DATA: Done recently; WBC is 4.3, hemoglobin 12.2, hematocrit 36, platelets were 105. Sodium 147, potassium 4.7, chloride 111, CO2 of 30, BUN 18, creatinine 0.72, estimated GFR more than 60, glucose 127, calcium 9.0, magnesium 1.8. Repeat sodium was 139. IMPRESSION: 1. 71-year-old male with supine hypertension and orthostatic hypotension. 2. Dizziness, which could be due to his orthostatic hypotension. 3. History of fall. 4. Right-handed weakness with question of transient ischemic attack. RECOMMENDATIONS: At this juncture, I agree with the continuation of metoprolol, holding off on lisinopril. Given question of transient ischemic attack, I recommend keeping his systolic blood pressure anywhere between 150 to 160 systolics. I agree with checking carotid duplex to look for carotid on history of venous stenosis causing his dizziness. I also agree with gentle hydration for this patient to help with his orthostasis. The patient is on high-dose gabapentin 300 mg 4 times a day and gabapentin has been associated with dizzy episodes. The patient apparently has been taking this medication for long duration, but I suggested decreasing the dose and to see if that helps with his dizziness. The above plan was discussed with the medical team. Thank you for allowing me to participate in medical management of patient. MD DIONE Hoyt/KAMLESH / [id number]
== END 2021-11-24 16:23 | disposition skilled nursing facility (03) ==
LOC: HO.ED 19:56 → HO.EDOVER 21:20 → HO.S3 11-24 01:52
PROVIDERS: Admitting Provider Hospitalist; Emergency Provider Internal Medicine; PCP Internal Medicine; Visit Provider Internal Medicine
DX: R47.01 Aphasia (principal); R53.1 Weakness; R42 Dizziness and giddiness; E11.9 Type 2 diabetes mellitus without complications; I10 Essential (primary) hypertension; I25.2 Old myocardial infarction; E78.5 Hyperlipidemia, unspecified; S30.1XXA Contusion of abdominal wall, initial encounter; S22.41XA Multiple fractures of ribs, right side, initial encounter for closed fracture; W10.9XXA Fall (on) (from) unspecified stairs and steps, initial encounter; Y93.01 Activity, walking, marching and hiking; Y92.9 Unspecified place or not applicable; Y99.8 Other external cause status; J90 Pleural effusion, not elsewhere classified; R91.8 Other nonspecific abnormal finding of lung field; F10.27 Alcohol dependence with alcohol-induced persisting dementia; Z20.822 Contact with and (suspected) exposure to COVID-19; Z86.73 Personal history of transient ischemic attack (TIA), and cerebral infarction without residual deficits; Z79.82 Long term (current) use of aspirin; Z79.4 Long term (current) use of insulin; Z79.899 Other long term (current) drug therapy
CPT/HCPCS: 36415; 70450; 71045; 71250; 72125; 74176; 80048; 80061; 81003; 82947; 83735; 83930; 84295; 84484; 85025; 85610; 87635; 93005; 93880; 97162; 99218; 99285

== ENCOUNTER 2022-01-03 18:03 | Inpatient (IN) | payer MEDICARE, SELFPAY ==
--- NOTE | ~2022-01-03 | XR_ITS ---
EXAMINATION: XR CHEST CLINICAL INFORMATION: TIA. COMPARISON: 11/24/2021 TECHNIQUE: Frontal view of the chest was obtained. FINDINGS: No consolidation, pneumothorax, or pleural effusion. Cardiac and mediastinal contours are normal except the calcific atherosclerosis in the thoracic aorta. Borderline low lung volumes. Pulmonary vasculature is unremarkable. No acute osseous findings. Osteoarthritis is present in the acromioclavicular and glenohumeral joints. Degenerative spondylosis in the thoracic spine. XR/XR chest 1V IMPRESSION: No acute pulmonary findings.
--- NOTE | ~2022-01-03 | MR_ITS ---
MRI OF THE BRAIN WITHOUT IV CONTRAST INDICATION: Slurred speech COMPARISON: CTA head 01/03/2022. Brain MRI 07/21/2015. TECHNIQUE: Multiplanar multisequence MR imaging of the brain was obtained without IV contrast. FINDINGS: There is no hydrocephalus, extra-axial surface collection, or herniation. There is global cerebral volume loss and there is mild to moderate chronic microangiopathy. The major flow voids at the skull base are preserved. There is no acute infarct on diffusion-weighted imaging. There is no intracranial hemorrhage on the gradient recalled echo acquisition. Chronic petechial microhemorrhages within the pavithra. The midline structures are normal. The cerebellar tonsils are normally positioned. The craniocervical junction is normal. Osseous marrow signal intensity is homogenous. The visualized soft tissues are unremarkable. Chronic traumatic deformity of the left lamina papyracea. Mild mucosal thickening throughout the paranasal sinuses. MR/MR head/brain wo con IMPRESSION: - There are no acute intracranial findings. No acute infarcts. - There is global cerebral volume loss and there is mild to moderate chronic microangiopathy. - Chronic petechial microhemorrhages within the pavithra.
--- NOTE | ~2022-01-03 | CT_ITS ---
EXAMINATION: CT HEAD WITHOUT CONTRAST CLINICAL INFORMATION: Stroke with slurred speech COMPARISON: Head CT 11/22/2021 TECHNIQUE: Imaging was performed from the skull base to vertex without intravenous administration of contrast. This CT examination was performed using dose optimization techniques as appropriate, variously including the following: *Automated exposure control *Adjustment of mA and/or kV according to patient size (this includes techniques or standardized protocols for targeted exams where dose is matched to indication/reason for exam; i.e. extremities or head) *Use of iterative reconstruction technique Total exam dose length product: 741 mGy-cm FINDINGS: No intra or extra-axial fluid collection, hemorrhage, or mass. No ventriculomegaly. No midline shift or herniation. Basal cisterns are patent. Valladares-white matter differentiation is maintained. No territorial encephalomalacia. Proportional prominence of the ventricles and sulcal spaces is consistent with mild volume loss. Patchy periventricular and deep white matter hypoattenuation is consistent with mild small vessel ischemic changes. No calvarial fracture or soft tissue abnormality. Minimal mucosal thickening left maxillary antrum. Evidence of prior impacted fracture of the medial wall of the left orbit. Mastoid air cells are normally aerated. CT/CT head for stroke IMPRESSION: 1. No intracranial hemorrhage or acute edematous territorial infarct identified. This critical result was discussed with Dr. Barber at 6:21 PM on 01/03/2022 and it was ascertained that the content and urgency of the report was understood at the time of direct communication.
--- NOTE | 2022-01-03 18:08 | ECG_ITS ---
Test Reason : STROKE Blood Pressure : / mmHG Vent. Rate : 083 BPM Atrial Rate : 083 BPM P-R Int : 146 ms QRS Dur : 092 ms QT Int : 370 ms P-R-T Axes : 073 061 085 degrees QTc Int : 434 ms Sinus rhythm with Premature atrial complexes Otherwise normal ECG When compared with ECG of 22-NOV-2021 16:38, Premature atrial complexes are now Present Referred By: Isaac Barber Electronically Signed By:RAJWINDER STEWART
--- NOTE | 2022-01-03 18:11 | ED.GENADULT ---
HPI - General Adult General Chief complaint: Stroke Stated complaint: SLURRED SPEECH Time Seen by Provider: 01/03/22 18:07 Source: patient and EMS Mode of arrival: EMS Limitations: no limitations History of Present Illness HPI narrative: 71-year-old male came in by EMS for evaluation slurred speech. This is a 71-year-old male who lives home alone mostly independently patient had a prior TIA in the past, according to EMS/family history patient gets periods of confusion, last time patient was seen normal was 08:00 10 hours ago, then at 17:00 daughter spoke with him felt patient been having slight slurred speech that has been gradually improving. 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 On arrival to the ED patient was LEA H score 0, no motor or sensory deficit is appreciated at this point. Related Data Home Medications Medication Instructions Recorded Confirmed atorvastatin 40 mg tablet 40 mg PO BEDTIME 11/27/20 11/22/21 citalopram 20 mg tablet 20 mg PO DAILY 11/27/20 11/22/21 cyanocobalamin (vitamin B-12) 1,000 mcg PO DAILY 11/27/20 11/22/21 1,000 mcg tablet (Vitamin B-12) divalproex 500 mg tablet,extended 1,000 mg PO BEDTIME 11/27/20 11/22/21 release 24 hr lorazepam 0.5 mg tablet 0.5 mg PO TID PRN Anxiety 11/27/20 11/22/21 metformin 500 mg tablet 500 mg PO BID 11/27/20 11/22/21 metoprolol succinate 50 mg 50 mg PO BEDTIME 11/27/20 11/22/21 tablet,extended release 24 hr omeprazole 20 mg capsule,delayed 20 mg PO DAILY 11/27/20 11/22/21 release risperidone 0.25 mg tablet 0.25 mg PO BEDTIME 11/27/20 11/22/21 zolpidem 5 mg tablet 5 mg PO BEDTIME PRN insomnia 11/27/20 11/22/21 acetaminophen 325 mg tablet 2 tab PO Q4H PRN Pain 11/22/21 11/22/21 Previous Rx's Medication Instructions Recorded aspirin 81 mg tablet,delayed 81 mg PO DAILY #30 tabs 11/24/21 release gabapentin 300 mg capsule 200 mg PO QID #0 caps 11/24/21 lidocaine 5 % topical patch 1 patch topical DAILY #5 ea 11/24/21 lisinopril 20 mg tablet 5 mg PO BEDTIME #0 tabs 11/24/21 Allergies Allergy/AdvReac Type Severity Reaction Status Date / Time No Known Allergies Allergy Verified 11/19/21 18:20 [No Known Allergies*] Review of Systems Review of Systems: All other systems are reviewed and are negative Constitutional: Reports as per HPI and Reports no additional constitutional complaints Eyes: Reports as per HPI and Reports no additional eye complaints Reports system reviewed and no additional complaints, except as documented Cardiovascular: Reports as per HPI and Reports no additional cardiovascular complaints Respiratory: Reports as per HPI and Reports no additional respiratory complaints Gastrointestinal: Reports as per HPI and Reports no additional gastrointestinal complaints Genitourinary: Reports no additional female genitourinary complaints Musculoskeletal: Reports no additional musculoskeletal complaints Skin/Breast: Reports system reviewed and no additional complaints, except as docu Psychiatric: Reports no additional psychiatric complaints Endocrine: Reports no additional endocrine complaints Hematologic/Lymphatic: Reports no additional hematologic/lymphatic complaints Allergic/Immunologic: Reports no additional allergic/immunologic complaints Reports system reviewed and no additional complaints, except as documented and Reports Abnormal speech present [facility] Past Medical History Medical History CVA (cerebral vascular accident) Dementia HTN (hypertension) Hyperlipidemia Myocardial infarct, old NIDDY (non-insulin dependent diabetes mellitus in young) Social History Social History Alcohol intake: unknown Patient Tobacco Use Status: Tobacco use Unknown Advance Directives: Yes Advance Directives on File: Yes Advance Directives Date on File: 03/21/21 service: No Current occupational status: retired Current occupation: rt handed Physical Exam ED Vital Signs: Vital Signs - 24 hr 01/03/22 18:22 Temperature 98.2 F Pulse Rate 79 Respiratory Rate 19 Pulse Oximetry 94 Oxygen Delivery Method Room Air BMI result Body Mass Index 29.3 Vital signs have been reviewed as appeared to be correct. Blood pressure normal. Heart rate normal. Respiration rate normal. Temperature normal. Oxygen saturation normal. Appearance: Alert. Oriented X3. No acute distress. Head: Normal external exam. Normocephalic. Atraumatic. No Meehan signs noted. No raccoon eyes noted Eyes: PERRLA. EOMI. Conjunctiva and sclera normal. Eyelids normal. ENT: TM's Normal. Pharynx normal. Uvula midline. Moist mucous membranes. No trismus noted. No drooling noted. No muffled voice noted. Neck: Normal inspection. Neck supple. FROM. No adenopathy. Thyroid Normal. No meningeal signs. No neck mass noted. CVS: Normal heart rate and rhythm. Heart sound normal. No murmurs noted. Pulses normal throughout. Respiratory: No respiratory distress. Painless inspiration. Breath sounds normal. No wheezes/rales/rhonchi noted. Chest nontender. No accessory muscle usage noted or decreased air movement noted. Abdomen: Soft and nontender. Bowel sounds normal in all 4 quadrants. No distention noted. No organomegaly noted. No visible injury noted. Back: No CVA tenderness. Full range of motion noted. Skin: Skin warm and dry. Normal skin color. Normal skin turgor. No rashes/lesions/lacerations noted. Extremities: No lower extremity edema. Extremities exhibit normal range of motion. Extremities nontender. Neuro: Oriented X 3. Cranial nerve exam: II-XII are grossly intact No motor deficit. No sensory deficit. Reflexes normal. NIH Stroke Scale Internal: Initial- Upon Arrival Time: 18:19 Level of Consciousness: Alert Level of Consciousness Questions: Answers both questions correctly Level of Consciousness Commands: Performs both tasks correctly Best Gaze: Normal Visual: No visual loss Facial Palsy: Normal Motor Arm (Right): No drift Motor Arm (Left): No drift Motor Leg (Right): No drift Motor Leg (Left): No drift Limb Ataxia: Absent Sensory: Normal Best Language: No aphasia Dysarthia: Normal Extinction and Inattention: No abnormality Score: 0 Course Course Course Narrative: Assessment and plan. 71-year-old male with history of CVA and a mild residual expressive aphasia, patient came in with TIA symptoms that resolved now. Medical Decision Making Lab Data Lab results reviewed: Yes I reviewed the patient's lab results. Result diagrams: 01/03/22 18:29 01/03/22 18:29 Labs: Lab Results 01/03/22 01/03/22 01/03/22 Range/Units 18:10 18:15 18:29 WBC 4.1 L (4.8-10.8) X10*3/uL RBC 4.15 L (4.60-5.80) X10*6/uL Hgb 12.2 L (14.0-18.0) g/dl Hct 35.3 L (42.0-52.0) % MCV 85.1 (80.0-98.0) fL MCH 29.4 (27.0-33.0) pg MCHC 34.6 (31.0-36.0) g/dl RDW 15.3 (11.0-16.0) % Plt Count 106 L (160-400) X10*3/uL MPV 11.5 (9.4-12.4) fL Immature Gran % (Auto) 0.5 H (0.0-0.4) % Neut % (Auto) 70.2 (45-73) % Lymph % (Auto) 18.7 L (20-40) % [place] % (Auto) 9.4 (2-11) % Eos % (Auto) 1.0 (0-4) % Baso % (Auto) 0.2 (0-2) % Lymph # (Auto) 0.8 L (1.2-4.9) X10*3/uL [place] # (Auto) 0.4 (0.1-1.2) X10*3/uL Eos # (Auto) 0.0 (0.0-0.4) X10*3/uL Baso # (Auto) 0.0 (0.0-0.2) X10*3/uL Abs Immat Gran (auto) 0.02 (0.00-0.03) X10*3/uL Absolute Neuts (auto) 2.9 (2.0-8.3) x10*3/uL Absolute Nucleated RBC 0.000 (0.0-0.012) X10*3/uL Nucleated RBC % (auto) 0.0 (0.0-0.2) /100WBC Smear Tech's Comments VERIFIED PT (10.0-13.1) SEC Whole Blood PT 12.6 (11.1-13.5) sec INR (0.9-1.1) Whole Blood INR 1.1 (0.9-1.1) APTT (24.1-38.0) SEC Sodium (135-145) mmol/L Potassium (3.3-5.1) mmol/L Chloride (96-108) mmol/L Carbon Dioxide (22-29) mmol/L Anion Gap (12-20) BUN (9-16) mg/dL Creatinine (0.5-1.4) mg/dL Estim Creat Clear Calc Estimated GFR POC Glucose 137 H (60-115) mg/dL Random Glucose (60-115) mg/dL Calcium (8.4-10.2) mg/dL Total Creatine Kinase (38-174) U/L Troponin I High Sens (<3.5-35.0) ng/L 01/03/22 01/03/22 01/03/22 Range/Units 18:29 18:29 18:29 WBC (4.8-10.8) X10*3/uL RBC (4.60-5.80) X10*6/uL Hgb (14.0-18.0) g/dl Hct (42.0-52.0) % MCV (80.0-98.0) fL MCH (27.0-33.0) pg MCHC (31.0-36.0) g/dl RDW (11.0-16.0) % Plt Count (160-400) X10*3/uL MPV (9.4-12.4) fL Immature Gran % (Auto) (0.0-0.4) % Neut % (Auto) (45-73) % Lymph % (Auto) (20-40) % [place] % (Auto) (2-11) % Eos % (Auto) (0-4) % Baso % (Auto) (0-2) % Lymph # (Auto) (1.2-4.9) X10*3/uL [place] # (Auto) (0.1-1.2) X10*3/uL Eos # (Auto) (0.0-0.4) X10*3/uL Baso # (Auto) (0.0-0.2) X10*3/uL Abs Immat Gran (auto) (0.00-0.03) X10*3/uL Absolute Neuts (auto) (2.0-8.3) x10*3/uL Absolute Nucleated RBC (0.0-0.012) X10*3/uL Nucleated RBC % (auto) (0.0-0.2) /100WBC Smear Tech's Comments PT 11.9 (10.0-13.1) SEC Whole Blood PT (11.1-13.5) sec INR 1.0 (0.9-1.1) Whole Blood INR (0.9-1.1) APTT 32.1 (24.1-38.0) SEC Sodium 142 (135-145) mmol/L Potassium 3.9 (3.3-5.1) mmol/L Chloride 108 (96-108) mmol/L Carbon Dioxide 27 (22-29) mmol/L Anion Gap 11 L (12-20) BUN 20 H (9-16) mg/dL Creatinine 0.71 (0.5-1.4) mg/dL Estim Creat Clear Calc 109.1 Estimated GFR > 60 POC Glucose (60-115) mg/dL Random Glucose 138 H (60-115) mg/dL Calcium 8.9 (8.4-10.2) mg/dL Total Creatine Kinase 112 (38-174) U/L Troponin I High Sens 19.7 (<3.5-35.0) ng/L Imaging Data CT scan - head: Attestation: I personally reviewed and interpreted this imaging study as follows: Radiologist's impression: 1. No intracranial hemorrhage or acute edematous territorial infarct identified. ? ECG Data Attestation: I personally reviewed and interpreted this ECG as follows: Interpretation: Normal sinus rhythm at 83 beats per minutes, PACs, normal intervals, normal axis deviation, no ST-T changes. Discharge Plan Discharge Clinical Impression: Brain TIA Patient Disposition: Admitted As Inpatient
[2022-01-03 18:13] LABS: Glucose, Whole Blood 137 mg/dL (60-115)
[2022-01-03 18:22] VITALS: PULSE 79; RESP 19; TEMP 36.8; O2SAT 94; BMI 29.3
[2022-01-03 18:27] LABS: Prothrombin Time Whole Bld POC 12.6 sec (11.1-13.5); ~PT, ~INR - Anti Coag Clinic 1.1 (0.9-1.1)
[2022-01-03 18:36] LABS: Basophils Percent Auto 0.2 % (0-2); Hematocrit 35.3 % (42.0-52.0); Hemoglobin 12.2 g/dl (14.0-18.0); Mean Corpuscular HGB Conc 34.6 g/dl (31.0-36.0); Mean Corpuscular Hemoglobin 29.4 pg (27.0-33.0); Mean Corpuscular Volume 85.1 fL (80.0-98.0); PLT CLUMP 1; Red Blood Count 4.15 X10*6/uL (4.60-5.80); Red Cell Distribution Width 15.3 % (11.0-16.0); SCAN SMEAR FLAG 1
[2022-01-03 18:38] LABS: Imm Gran Abs Auto 0.02 X10*3/uL (0.00-0.03); Imm Gran Pct Auto 0.5 % (0.0-0.4); Lymphocytes Absolute Auto 0.8 X10*3/uL (1.2-4.9); Lymphocytes Percent Auto 18.7 % (20-40); MANUAL DIFF FLAG SCAN; Mean Platelet Volume 11.5 fL (9.4-12.4); Monocytes Absolute Auto 0.4 X10*3/uL (0.1-1.2); Monocytes Percent Auto 9.4 % (2-11); Neutrophils Absolute Auto 2.9 x10*3/uL (2.0-8.3); Neutrophils Percent Auto 70.2 % (45-73)
[2022-01-03 18:41] LABS: Prothrombin Time 11.9 SEC (10.0-13.1)
--- NOTE | 2022-01-03 18:43 | PC.NURSE ---
MRI form completed, faxed to MRI
[2022-01-03 18:44] LABS: Partial Thromboplastin Time 32.1 SEC (24.1-38.0)
[2022-01-03 18:48] LABS: Stroke Lab Use COMPLETE
[2022-01-03 18:55] LABS: Anion Gap 11 (12-20); Blood Urea Nitrogen 20 mg/dL (9-16); Calcium 8.9 mg/dL (8.4-10.2); Carbon Dioxide 27 mmol/L (22-29); Chloride 108 mmol/L (96-108); Creatinine Clr Calc Pharmacy 109.1; Estimated Glomerular Filt Rate > 60; Glucose Random 138 mg/dL (60-115); Potassium 3.9 mmol/L (3.3-5.1); Sodium 142 mmol/L (135-145)
[2022-01-03 18:57] LABS: Platelet Count 106 X10*3/uL (160-400); White Blood Count 4.1 X10*3/uL (4.8-10.8)
[2022-01-03 18:58] LABS: SLIDE REVIEW VERIFIED
[2022-01-03 19:01] LABS: Troponin-I High Sensitivity 19.7 ng/L (<3.5-35.0)
[2022-01-03 20:11] VITALS: BP 105/42; PULSE 79; RESP 17; O2SAT 95
--- NOTE | 2022-01-03 20:55 | PHA.MEDREC ---
Addendum entered by Viktoriya Frazier [facility] 01/03/22 22:15: PATIENT STATED THAT HE WAS TAKEN OFF THE METOPROLOL AND HE HAS NOT BEEN TAKING IT Original Note: med rec complete Pharmacy Consult ? Medication Reconciliation Pharmacy has completed the medication reconciliation.
--- NOTE | 2022-01-03 22:09 | P.HPHOSP_ITS ---
History of Present Illness Date of Service: 01/03/22 Chief Complaint: TIA 71-year-old male with past medical history of CVA with residual speech delay, dementia, HTN, HLD, CAD, diabetes mellitus who presents to the hospital with possible TIA. Patient does answer questions appropriately but has significant delay in speech, and is not a great historian specifically with chronological detail. According to ED physician, daughter called the patient to morning he was at his baseline with no significant changes, she called again in the afternoon around 17:00 and found him to have significant slurred speech, by the time he arrived to the ED patient symptoms resolved and he was at his baseline in regards to his neurological status. Patient reports that he has also been having significant balance problems for the past couple of weeks, he has had multiple falls with no loss of consciousness, and no head injury. He reports no significant increase in his numbness, tingling or weakness in his extremities. Patient otherwise denies any palpitations, no chest pain, no abdominal pain nausea or vomiting, no diarrhea constipation, no urinary symptoms and no lower extremity edema. Labs are significant for WBC count of 4.1, hemoglobin of 12.2, hematocrit 35.3, otherwise unremarkable Imaging including MRI showed no acute intracranial findings, no acute infarcts, there is global cerebral volume loss and there is [id number] chronic blank p.o. angiopathy, chronic petechial microhemorrhages within the pavithra patient will be admitted for further evaluation Review of Systems Review of Systems: Yes all other systems are reviewed and are negative Neurologic: Reports Abnormal speech present COUNTS INCLUDE 234 BEDS AT THE [facility] Medical History CVA (cerebral vascular accident) Dementia HTN (hypertension) Hyperlipidemia Myocardial infarct, old NIDDY (non-insulin dependent diabetes mellitus in young) Social History Alcohol intake: unknown Patient Tobacco Use Status: Tobacco use Unknown Advance Directives: Yes Advance Directives on File: Yes Advance Directives Date on File: 03/21/21 service: No Current occupational status: retired Current occupation: rt handed Meds Allergies Allergy/AdvReac Type Severity Reaction Status Date / Time No Known Allergies Allergy Verified 11/19/21 18:20 [No Known Allergies*] Active Medications: Current Medications Acetaminophen (Acetaminophen 325 Mg Tablet) 650 mg PO Q6H PRN PRN Reason: Pain, Mild (Pain Scale 1-3) Atorvastatin Calcium (Atorvastatin Calcium 80 Mg Tablet) 80 mg PO DAILY ROZINA Docusate Sodium (Docusate Sodium 100 Mg Capsule) 100 mg PO DAILY PRN PRN Reason: Constipation Ondansetron HCl (Ondansetron Hcl 4 Mg/2 Ml Vial) 4 mg IVPUSH Q8H PRN PRN Reason: Nausea and Vomiting Home Medications Medication Instructions Recorded Confirmed Last Taken Type atorvastatin 40 mg tablet 40 mg PO BEDTIME 11/27/20 01/03/22 11/21/21 History citalopram 20 mg tablet 20 mg PO DAILY 11/27/20 01/03/22 11/22/21 History cyanocobalamin (vitamin B-12) 1,000 mcg PO DAILY 11/27/20 01/03/22 11/22/21 History 1,000 mcg tablet (Vitamin B-12) divalproex 500 mg tablet,extended 1,000 mg PO BEDTIME 11/27/20 01/03/22 11/21/21 History release 24 hr lorazepam 0.5 mg tablet 0.5 mg PO TID PRN Anxiety 11/27/20 01/03/22 11/21/21 History metformin 500 mg tablet 500 mg PO BID 11/27/20 01/03/22 11/22/21 History omeprazole 20 mg capsule,delayed 20 mg PO DAILY 11/27/20 01/03/22 11/22/21 History release risperidone 0.25 mg tablet 0.25 mg PO BEDTIME 11/27/20 01/03/22 11/21/21 History zolpidem 5 mg tablet 5 mg PO BEDTIME PRN insomnia 11/27/20 01/03/22 11/21/21 History acetaminophen 325 mg tablet 2 tab PO Q4H PRN Pain 11/22/21 01/03/22 Unknown History gabapentin 300 mg capsule 300 mg PO QID 01/03/22 01/03/22 Unknown History lisinopril 20 mg tablet 20 mg PO BEDTIME 01/03/22 01/03/22 Unknown History Physical Exam Vital Signs and Narrative: Vital Signs: Last Vital Signs Temp 98.2 F 01/03/22 18:22 Pulse 79 01/03/22 20:11 Resp 17 01/03/22 20:11 BP 105/42 L 01/03/22 20:11 Pulse Ox 95 01/03/22 20:11 O2 Del Method 01/03/22 20:11 BMI result Body Mass Index 29.3 Const: General: cooperative and no acute distress Orientation/consciousness: patient oriented x3 Eyes: General: appearance normal, both eyes and all related structures Pupils: Equal, round and reactive pupils present Resp: Effort & Inspection: normal respiratory effort Auscultation: clear to auscultation bilaterally Cardio: Rate: regular rate Rhythm: regular rhythm GI: Palpation (GI): Soft to palpation Auscultation: normal bowel sounds Skin: General skin exam: no rashes or lesions noted Neuro: General: patient oriented x3 Cranial nerves: Yes Equal, round and reactive pupils present Cognition (Neuro): normal cognition Speech: Abnormal speech present and Other speech findings present (Neuro) (There is no effusion but delay in speech) Extrem: General: Yes normal to inspection and Yes no pedal edema Results Labs CBC and Chem 7: 01/03/22 18:29 01/03/22 18:29 Labs: Laboratory Results - last 24 hr 01/03/22 01/03/22 01/03/22 18:10 18:15 18:29 MCV 85.1 MCH 29.4 MCHC 34.6 RDW 15.3 Plt Count 106 L MPV 11.5 Immature Gran % (Auto) 0.5 H Neut % (Auto) 70.2 Lymph % (Auto) 18.7 L [place] % (Auto) 9.4 Eos % (Auto) 1.0 Baso % (Auto) 0.2 Lymph # (Auto) 0.8 L [place] # (Auto) 0.4 Eos # (Auto) 0.0 Baso # (Auto) 0.0 Abs Immat Gran (auto) 0.02 Absolute Neuts (auto) 2.9 Absolute Nucleated RBC 0.000 Nucleated RBC % (auto) 0.0 Smear Tech's Comments VERIFIED PT Whole Blood PT 12.6 INR Whole Blood INR 1.1 APTT Anion Gap Estim Creat Clear Calc Estimated GFR POC Glucose 137 H Random Glucose Calcium Total Creatine Kinase Troponin I High Sens 01/03/22 01/03/22 01/03/22 18:29 18:29 18:29 MCV MCH MCHC RDW Plt Count MPV Immature Gran % (Auto) Neut % (Auto) Lymph % (Auto) [place] % (Auto) Eos % (Auto) Baso % (Auto) Lymph # (Auto) [place] # (Auto) Eos # (Auto) Baso # (Auto) Abs Immat Gran (auto) Absolute Neuts (auto) Absolute Nucleated RBC Nucleated RBC % (auto) Smear Tech's Comments PT 11.9 Whole Blood PT INR 1.0 Whole Blood INR APTT 32.1 Anion Gap 11 L Estim Creat Clear Calc 109.1 Estimated GFR > 60 POC Glucose Random Glucose 138 H Calcium 8.9 Total Creatine Kinase 112 Troponin I High Sens 19.7 Imaging Radiologist's Impressions: Impressions Head CT 01/03/22 18:14 IMPRESSION: 1. No intracranial hemorrhage or acute edematous territorial infarct identified. This critical result was discussed with Dr. Barber at 6:21 PM on 01/03/2022 and it was ascertained that the content and urgency of the report was understood at the time of direct communication. Brain MRI 01/03/22 20:05 IMPRESSION: - There are no acute intracranial findings. No acute infarcts. - There is global cerebral volume loss and there is mild to moderate chronic microangiopathy. - Chronic petechial microhemorrhages within the pavithra. Chest X-Ray 01/03/22 20:24 IMPRESSION: No acute pulmonary findings. Assessment and Plan (1) Brain TIA: Status: Acute Plan 71-year-old male with past medical history CVA presents to the hospital with episode of slurred speech # slurred speech - possible TIA versus baseline - MRI negative - given his history of CVA, will consult neurology for further evaluation and r ecommendation # history of CVA - continue aspirin, statin # hypertension - stable - continue antihypertensive # diabetes - hold metformin - low-dose sliding scale insulin - Diabetic diet: DVT prophylaxis: Early ambulation Quality Stroke Does the patient have a stroke diagnosis?: No VTE Prior VTE?: No VTE Risk Level:: Medical - low VTE Device Contraindication: Treatment Not Indicated VTE Drug Contraindication: Treatment Not Indicated
[2022-01-03] MEDS: Gabapentin 300 MG CAPSULE PO (22:22)
[2022-01-03] MEDS: Divalproex Sodium ER 500 MG TAB.ER.24H 1000 MG PO (22:22)
[2022-01-03] MEDS: lisinopriL 20 MG TABLET PO (22:22)
[2022-01-03] MEDS: risperiDONE 0.25 MG TABLET PO (22:22)
[2022-01-03 23:49] VITALS: BP 170/77; PULSE 79; RESP 20; TEMP 36.9; O2SAT 97
[2022-01-04] MEDS: Omeprazole 20 MG CAPSULE.DR PO (05:56)
[2022-01-04 06:08] LABS: COVID-19 Test Negative (Negative)
[2022-01-04 07:26] LABS: Basophils Percent Auto 0.6 % (0-2); Eosinophils Absolute Auto 0.1 X10*3/uL (0.0-0.4); Eosinophils Percent Auto 1.9 % (0-4); Hematocrit 36.2 % (42.0-52.0); Hemoglobin 12.6 g/dl (14.0-18.0); Imm Gran Abs Auto 0.02 X10*3/uL (0.00-0.03); Imm Gran Pct Auto 0.6 % (0.0-0.4); Lymphocytes Absolute Auto 1.1 X10*3/uL (1.2-4.9); Lymphocytes Percent Auto 33.6 % (20-40); MANUAL DIFF FLAG SCAN; Mean Corpuscular HGB Conc 34.8 g/dl (31.0-36.0); Mean Corpuscular Hemoglobin 29.8 pg (27.0-33.0); Mean Corpuscular Volume 85.6 fL (80.0-98.0); Mean Platelet Volume 13.1 fL (9.4-12.4); Monocytes Absolute Auto 0.3 X10*3/uL (0.1-1.2); Monocytes Percent Auto 10.4 % (2-11); Neutrophils Absolute Auto 1.7 x10*3/uL (2.0-8.3); Neutrophils Percent Auto 52.9 % (45-73); PLT CLUMP 1; Red Blood Count 4.23 X10*6/uL (4.60-5.80); Red Cell Distribution Width 15.4 % (11.0-16.0); SCAN SMEAR FLAG 1
[2022-01-04 07:28] LABS: White Blood Count 3.2 X10*3/uL (4.8-10.8)
[2022-01-04 07:37] LABS: Anion Gap 12 (12-20); Blood Urea Nitrogen 16 mg/dL (9-16); Calcium 8.6 mg/dL (8.4-10.2); Carbon Dioxide 26 mmol/L (22-29); Chloride 107 mmol/L (96-108); Creatinine Clr Calc Pharmacy 115.6; Estimated Glomerular Filt Rate > 60; Glucose Random 132 mg/dL (60-115); Potassium 3.8 mmol/L (3.3-5.1); Sodium 141 mmol/L (135-145)
[2022-01-04 07:39] VITALS: BP 160/68; PULSE 69; RESP 14; TEMP 36.9; O2SAT 96
[2022-01-04 07:46] LABS: Glucose, Whole Blood 122 mg/dL (60-115)
[2022-01-04 07:47] LABS: Cholesterol 78 mg/dL; HDL Cholesterol 28 mg/dL; LDL Cholesterol Calculated 38 mg/dl; Triglycerides 60 mg/dL
[2022-01-04 08:04] LABS: Platelet Count 89 X10*3/uL (160-400)
[2022-01-04 08:05] LABS: SLIDE REVIEW VERIFIED
[2022-01-04] MEDS: Atorvastatin Calcium 80 MG TABLET PO (08:45)
[2022-01-04] MEDS: Cyanocobalamin (Vitamin B-12) 1,000 MCG TABLET 1000 MCG PO (08:45)
[2022-01-04] MEDS: Gabapentin 300 MG CAPSULE PO ×4 (08:45→22:46)
[2022-01-04] MEDS: Escitalopram Oxalate 10 MG TABLET PO (08:45)
[2022-01-04] MEDS: Aspirin Enteric Coated 81 MG TABLET.DR PO (08:45)
--- NOTE | 2022-01-04 10:09 | PC.NURSE ---
this account underwriter assumed care of this pt at 1000. pt alert and oriented, denies pain.
--- NOTE | 2022-01-04 11:33 | MHC.CM.PN ---
Call to all of the below listed numbers attempted: Patient home, cell, HCP (Nasima Shannon) cell and Primary Contact listed (Dallas Shannon-son). All numbers unanswered and VMs either are generalized automated VMs, or have other names listed on the VMs. Unable to leave confidential VM. CM to reapproach.
[2022-01-04 12:09] VITALS: BP 145/70; PULSE 65; RESP 14; O2SAT 96
[2022-01-04 12:50] LABS: Glucose, Whole Blood 118 mg/dL (60-115)
--- NOTE | 2022-01-04 13:06 | P.PNIM_ITS ---
Subjective Subjective Date of Service: 01/04/22 Interval History: the patient was seen and evaluated this morning Laying in bed, feels comfortable reported feeling weak generally but back to his baseline at this point No reported other overnight events. Systemic review: No fever, chills or weakness No chest pain, palpitation No shortness of breath or coughing No abdominal pain, nausea or vomiting No urinary symptoms No any rash or wounds Physical Exam Vital Signs: Vital Signs: Last Vital Signs Temp 98.5 F 01/04/22 07:39 Pulse 65 01/04/22 12:09 Resp 14 01/04/22 12:09 BP 145/70 H 01/04/22 12:09 Pulse Ox 96 01/04/22 12:09 O2 Del Method 01/04/22 12:09 BMI result Body Mass Index 29.3 Const: Other: Constitutional : Alert, oriented, not in distress Neck : Normal inspection, Supple Cardiovascular : RRR, no JVP, no lower extremity edema Respiratory : fair bilateral air entry, no crackles, wheezes or rhonchi Gastrointestinal: soft, lax, Normal bowel sounds, Non tender Skin : Warm, Dry Neurological : Alert & oriented x3, slow responses but no slurred speech, mild left-sided weakness more noticed on the lower extremity , CN 2-12 within normal Objective Data Active Medications Acetaminophen (Acetaminophen 325 Mg Tablet) 650 mg PO Q6H PRN PRN Reason: Pain, Mild (Pain Scale 1-3) Aspirin (Aspirin Enteric Coated 81 Mg Tablet.) 81 mg PO DAILY [facility] Last Admin: 01/04/22 08:45 Dose: 81 mg Documented By: JORDIN Atorvastatin Calcium (Atorvastatin Calcium 80 Mg Tablet) 80 mg PO DAILY [facility] Last Admin: 01/04/22 08:45 Dose: 80 mg Documented By: JORDIN Cyanocobalamin (Cyanocobalamin (Vitamin B-12) 1,000 Mcg Tablet) 1,000 mcg PO DAILY [facility] Last Admin: 01/04/22 08:45 Dose: 1,000 mcg Documented By: JORDIN Dextrose (Dextrose 50 % 25 Gm/50 Ml Syringe) 25 gm IVPUSH Q15M PRN; Protocol PRN Reason: per Hypoglycemia Standing Ord. Divalproex Sodium (Divalproex Sodium Er 500 Mg Tab.Er.24h) 1,000 mg PO BEDTIME [facility] Last Admin: 01/03/22 22:22 Dose: 1,000 mg Documented By: DEREK Docusate Sodium (Docusate Sodium 100 Mg Capsule) 100 mg PO DAILY PRN PRN Reason: Constipation Enoxaparin Sodium (Enoxaparin Sodium 40 Mg/0.4 Ml Syringe) 40 mg SUBCUT Q24H [facility] Escitalopram Oxalate (Escitalopram Oxalate 10 Mg Tablet) 10 mg PO DAILY [facility] Last Admin: 01/04/22 08:45 Dose: 10 mg Documented By: JORDIN Gabapentin (Gabapentin 300 Mg Capsule) 300 mg PO QID [facility] Last Admin: 01/04/22 08:45 Dose: 300 mg Documented By: JORDIN Glucose (Glucose Gel 15 Gm Gel..Gram.) 15 gm PO Q15M PRN; Protocol PRN Reason: per Hypoglycemia Standing Ord. Insulin Human Lispro (Insulin Lispro 100 Unit/Ml 3 Ml Vial) 0 unit SUBCUT QIDACHS [facility]; Protocol Last Admin: 01/04/22 12:57 Dose: Not Given Documented By: JAYANT Non-Admin Reason: No Insulin Coverage Lisinopril (Lisinopril 20 Mg Tablet) 20 mg PO BEDTIME [facility]; Protocol Last Admin: 01/03/22 22:22 Dose: 20 mg Documented By: DEREK Lorazepam (Lorazepam 0.5 Mg Tablet) 0.5 mg PO TID PRN PRN Reason: Anxiety Omeprazole (Omeprazole 20 Mg Capsule.Dr) 20 mg PO DAILY@0630 [facility] Last Admin: 01/04/22 05:56 Dose: 20 mg Documented By: DEREK Ondansetron HCl (Ondansetron Hcl 4 Mg/2 Ml Vial) 4 mg IVPUSH Q8H PRN PRN Reason: Nausea and Vomiting Risperidone (Risperidone 0.25 Mg Tablet) 0.25 mg PO BEDTIME [facility] Last Admin: 01/03/22 22:22 Dose: 0.25 mg Documented By: DEREK Zolpidem Tartrate (Zolpidem Tartrate 5 Mg Tablet) 5 mg PO BEDTIME PRN PRN Reason: insomnia Labs CBC & Chem 7: 01/04/22 06:52 01/04/22 06:52 Labs: Laboratory Results - last 24 hr 01/03/22 01/03/22 01/03/22 18:10 18:15 18:29 MCV 85.1 MCH 29.4 MCHC 34.6 RDW 15.3 Plt Count 106 L MPV 11.5 Immature Gran % (Auto) 0.5 H Neut % (Auto) 70.2 Lymph % (Auto) 18.7 L Cross % (Auto) 9.4 Eos % (Auto) 1.0 Baso % (Auto) 0.2 Lymph # (Auto) 0.8 L Cross # (Auto) 0.4 Eos # (Auto) 0.0 Baso # (Auto) 0.0 Abs Immat Gran (auto) 0.02 Absolute Neuts (auto) 2.9 Absolute Nucleated RBC 0.000 Nucleated RBC % (auto) 0.0 Smear Tech's Comments VERIFIED PT Whole Blood PT 12.6 INR Whole Blood INR 1.1 APTT Anion Gap Estim Creat Clear Calc Estimated GFR POC Glucose 137 H Random Glucose Calcium Total Creatine Kinase Troponin I High Sens Triglycerides Cholesterol LDL Cholesterol, Calc HDL Cholesterol COVID-19 (RICA) COVID-19 Swipely 01/03/22 01/03/22 01/03/22 18:29 18:29 18:29 MCV MCH MCHC RDW Plt Count MPV Immature Gran % (Auto) Neut % (Auto) Lymph % (Auto) Cross % (Auto) Eos % (Auto) Baso % (Auto) Lymph # (Auto) Cross # (Auto) Eos # (Auto) Baso # (Auto) Abs Immat Gran (auto) Absolute Neuts (auto) Absolute Nucleated RBC Nucleated RBC % (auto) Smear Tech's Comments PT 11.9 Whole Blood PT INR 1.0 Whole Blood INR APTT 32.1 Anion Gap 11 L Estim Creat Clear Calc 109.1 Estimated GFR > 60 POC Glucose Random Glucose 138 H Calcium 8.9 Total Creatine Kinase 112 Troponin I High Sens 19.7 Triglycerides Cholesterol LDL Cholesterol, Calc HDL Cholesterol COVID-19 (RICA) COVID-19 Swipely 01/04/22 01/04/22 01/04/22 05:43 06:52 06:52 MCV 85.6 MCH 29.8 MCHC 34.8 RDW 15.4 Plt Count 89 L MPV 13.1 H Immature Gran % (Auto) 0.6 H Neut % (Auto) 52.9 Lymph % (Auto) 33.6 Cross % (Auto) 10.4 Eos % (Auto) 1.9 Baso % (Auto) 0.6 Lymph # (Auto) 1.1 L Cross # (Auto) 0.3 Eos # (Auto) 0.1 Baso # (Auto) 0.0 Abs Immat Gran (auto) 0.02 Absolute Neuts (auto) 1.7 L Absolute Nucleated RBC 0.000 Nucleated RBC % (auto) 0.0 Smear Tech's Comments VERIFIED PT Whole Blood PT INR Whole Blood INR APTT Anion Gap 12 Estim Creat Clear Calc 115.6 Estimated GFR > 60 POC Glucose Random Glucose 132 H Calcium 8.6 Total Creatine Kinase Troponin I High Sens Triglycerides Cholesterol LDL Cholesterol, Calc HDL Cholesterol COVID-19 (RICA) Negative COVID-19 Clin Com See Note 01/04/22 01/04/22 01/04/22 06:52 07:38 12:11 MCV MCH MCHC RDW Plt Count MPV Immature Gran % (Auto) Neut % (Auto) Lymph % (Auto) Cross % (Auto) Eos % (Auto) Baso % (Auto) Lymph # (Auto) Cross # (Auto) Eos # (Auto) Baso # (Auto) Abs Immat Gran (auto) Absolute Neuts (auto) Absolute Nucleated RBC Nucleated RBC % (auto) Smear Tech's Comments PT Whole Blood PT INR Whole Blood INR APTT Anion Gap Estim Creat Clear Calc Estimated GFR POC Glucose 122 H 118 H Random Glucose Calcium Total Creatine Kinase Troponin I High Sens Triglycerides 60 Cholesterol 78 LDL Cholesterol, Calc 38 HDL Cholesterol 28 COVID-19 (RICA) COVID-19 Clin Com Assessment and Plan (1) Fall: Status: Acute (2) Slurred speech: Status: Acute Plan 71-year-old male with past medical history CVA presents to the hospital with episode of slurred speech # slurred speech resolved CT,MRI negative continue aspirin and statin pending consult neurology for further evaluation and recommendation # Falls of recurrent falls at home PT evaluation Patient would likely need placement at SNF and consider long-term placement or assisted living # history of CVA continue aspirin, statin # hypertension continue antihypertensive # diabetes hold metformin low-dose sliding scale insulin Diabetic diet DVT prophylaxis Lovenox patient will need overnight hospital stay for safe discharge plan and placement Quality Stroke Does the patient have a stroke diagnosis?: No VTE Prior VTE?: No VTE Risk Level:: Medical - low VTE Device Contraindication: Treatment Not Indicated VTE Drug Contraindication: Treatment Not Indicated
--- NOTE | 2022-01-04 13:27 | MHC.CM.PN ---
IMM 01/04/2022, EMR REVIEWED, PT ADMITTED W/?TIA, SLURRED SPEECH AND RECURRENT FALLS AT HOME, PT REPORTS HE LIVES ALONE, HAS A WALKER AND CANE FOR DME, PPT REPORTS HE IS ACTIVE W/[facility] AND HAS AN APPT W/[facility] FOR [facility] ON February, PER DISCUSSION W/HOSPITALIST PT MAY NEED HALF-WAY OR LTC D/T FREQUENT FALLS AND LIVING ALONE. PT IS REC'ING STR AND PER PT [facility] IS PREFERRED SNF, REFERRAL PLACED AND VERIFIES PCP IS RACHEL FRANCOIS. ANTIC D/C FRIDAY 01/05 TO STR W/BLS TRANSPORT
--- NOTE | 2022-01-04 13:40 | MHC.CM.PN ---
CM RECEIVED MESSAGE FROM [facility] THAT THEY CAN ACCEPT PT ON Thursday01/05/22.
[2022-01-04 16:00] VITALS: BP 156/76; PULSE 70; RESP 16; TEMP 36.6; O2SAT 98
--- NOTE | 2022-01-04 16:18 | PC.NURSE ---
patient void 400 ml in urinal ,fresh water and box of tissue given ,patient is in good spirits .
[2022-01-04 17:09] LABS: Glucose, Whole Blood 130 mg/dL (60-115)
[2022-01-04] MEDS: Enoxaparin Sodium 40 MG/0.4 ML SYRINGE SUBCUT (17:39)
--- NOTE | 2022-01-04 18:51 | PC.NURSE ---
patient was set up will meals ,ate 100 % of supper .
[2022-01-04 20:00] VITALS: BP 108/61; PULSE 78; RESP 16; TEMP 36.6; O2SAT 98
--- NOTE | 2022-01-04 20:06 | PC.NURSE ---
bed bath given given to patient ,lotion apply .
[2022-01-04 21:09] LABS: Glucose, Whole Blood 190 mg/dL (60-115)
[2022-01-04] MEDS: Insulin Lispro 100 UNIT/ML 3 ML VIAL SUBCUT (22:45)
[2022-01-04] MEDS: lisinopriL 20 MG TABLET PO (22:46)
[2022-01-04] MEDS: Divalproex Sodium ER 500 MG TAB.ER.24H 1000 MG PO (22:47)
[2022-01-05] VITALS: BP 151/66; PULSE 63; RESP 16; TEMP 36.1; O2SAT 98
[2022-01-05 04:00] VITALS: BP 158/77; PULSE 62; RESP 16; TEMP 36.6; O2SAT 98
[2022-01-05] MEDS: Omeprazole 20 MG CAPSULE.DR PO (06:33)
[2022-01-05] MEDS: Atorvastatin Calcium 80 MG TABLET PO (07:32)
[2022-01-05] MEDS: Aspirin Enteric Coated 81 MG TABLET.DR PO (07:32)
[2022-01-05] MEDS: Cyanocobalamin (Vitamin B-12) 1,000 MCG TABLET 1000 MCG PO (07:33)
[2022-01-05] MEDS: Gabapentin 300 MG CAPSULE PO ×2 (07:33→13:44)
[2022-01-05] MEDS: Escitalopram Oxalate 10 MG TABLET PO (07:34)
[2022-01-05 07:38] LABS: Glucose, Whole Blood 174 mg/dL (60-115)
[2022-01-05] MEDS: Insulin Lispro 100 UNIT/ML 3 ML VIAL SUBCUT (07:42)
[2022-01-05] MEDS: amLODIPine Besylate 5 MG TABLET PO (07:52)
[2022-01-05 08:03] VITALS: BP 155/71; PULSE 78; RESP 13; O2SAT 98
--- NOTE | 2022-01-05 08:29 | MHC.CM.PN ---
PT OFFERED BED AT PREFERRED SNF [facility], PER HOSPITALIST PT WILL D/C PENDING NEURO CONSULT, [facility] UPDATED AND CM WILL CONT TO FOLLOW.
--- NOTE | 2022-01-05 09:16 | PM.NEUROCN ---
History of Present Illness Data of Consult Service Date: 01/05/22 Primary Care Provider: Unknown Physician HPI Reason for consult: TA 71 years old man with underlying history of significant dementia. Though exact history was not clear, there was suspicion that he used to drink alcohol in the past. 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 He was brought to hospital with change in mental status. He did not have recollection of what had happened stating that something happened and then he saw ambulance people. Apparently he was noted to have slow speech when he was in emergency room. 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) Social History Social History Alcohol intake: unknown Patient Tobacco Use Status: Tobacco use Unknown Advance Directives: Yes Advance Directives on File: Yes Advance Directives Date on File: 03/21/21 service: No Current occupational status: retired Current occupation: rt handed Meds Allergies Allergy/AdvReac Type Severity Reaction Status Date / Time No Known Allergies Allergy Verified 11/19/21 18:20 [No Known Allergies*] Active Medications: Current Medications Acetaminophen (Acetaminophen 325 Mg Tablet) 650 mg PO Q6H PRN PRN Reason: Pain, Mild (Pain Scale 1-3) Amlodipine Besylate (Amlodipine Besylate 5 Mg Tablet) 5 mg PO DAILY [facility]; Protocol Last Admin: 01/05/22 07:52 Dose: 5 mg Aspirin (Aspirin Enteric Coated 81 Mg Tablet.) 81 mg PO DAILY [facility] Last Admin: 01/05/22 07:32 Dose: 81 mg Atorvastatin Calcium (Atorvastatin Calcium 80 Mg Tablet) 80 mg PO DAILY [facility] Last Admin: 01/05/22 07:32 Dose: 80 mg Cyanocobalamin (Cyanocobalamin (Vitamin B-12) 1,000 Mcg Tablet) 1,000 mcg PO DAILY [facility] Last Admin: 01/05/22 07:33 Dose: 1,000 mcg Dextrose (Dextrose 50 % 25 Gm/50 Ml Syringe) 25 gm IVPUSH Q15M PRN; Protocol PRN Reason: per Hypoglycemia Standing Ord. Divalproex Sodium (Divalproex Sodium Er 500 Mg Tab.Er.24h) 1,000 mg PO BEDTIME [facility] Last Admin: 01/04/22 22:47 Dose: 1,000 mg Docusate Sodium (Docusate Sodium 100 Mg Capsule) 100 mg PO DAILY PRN PRN Reason: Constipation Enoxaparin Sodium (Enoxaparin Sodium 40 Mg/0.4 Ml Syringe) 40 mg SUBCUT Q24H [facility] Last Admin: 01/04/22 17:39 Dose: 40 mg Escitalopram Oxalate (Escitalopram Oxalate 10 Mg Tablet) 10 mg PO DAILY [facility] Last Admin: 01/05/22 07:34 Dose: 10 mg Gabapentin (Gabapentin 300 Mg Capsule) 300 mg PO QID [facility] Last Admin: 01/05/22 07:33 Dose: 300 mg Glucose (Glucose Gel 15 Gm Gel..Gram.) 15 gm PO Q15M PRN; Protocol PRN Reason: per Hypoglycemia Standing Ord. Insulin Human Lispro (Insulin Lispro 100 Unit/Ml 3 Ml Vial) 0 unit SUBCUT QIDACHS [facility]; Protocol Last Admin: 01/05/22 07:42 Dose: 2 unit Lisinopril (Lisinopril 20 Mg Tablet) 20 mg PO BEDTIME [facility]; Protocol Last Admin: 01/04/22 22:46 Dose: 20 mg Lorazepam (Lorazepam 0.5 Mg Tablet) 0.5 mg PO TID PRN PRN Reason: Anxiety Omeprazole (Omeprazole 20 Mg Capsule.Dr) 20 mg PO DAILY@0630 [facility] Last Admin: 01/05/22 06:33 Dose: 20 mg Ondansetron HCl (Ondansetron Hcl 4 Mg/2 Ml Vial) 4 mg IVPUSH Q8H PRN PRN Reason: Nausea and Vomiting Risperidone (Risperidone 0.25 Mg Tablet) 0.25 mg PO BEDTIME [facility] Last Admin: 01/05/22 00:23 Dose: Not Given Zolpidem Tartrate (Zolpidem Tartrate 5 Mg Tablet) 5 mg PO BEDTIME PRN PRN Reason: insomnia Home Medications Medication Instructions Recorded Confirmed Last Taken Type atorvastatin 40 mg tablet 40 mg PO BEDTIME 11/27/20 01/03/22 11/21/21 History citalopram 20 mg tablet 20 mg PO DAILY 11/27/20 01/03/22 11/22/21 History cyanocobalamin (vitamin B-12) 1,000 mcg PO DAILY 11/27/20 01/03/22 11/22/21 History 1,000 mcg tablet (Vitamin B-12) divalproex 500 mg tablet,extended 1,000 mg PO BEDTIME 11/27/20 01/03/22 11/21/21 History release 24 hr lorazepam 0.5 mg tablet 0.5 mg PO TID PRN Anxiety 11/27/20 01/03/22 11/21/21 History metformin 500 mg tablet 500 mg PO BID 11/27/20 01/03/22 11/22/21 History omeprazole 20 mg capsule,delayed 20 mg PO DAILY 11/27/20 01/03/22 11/22/21 History release risperidone 0.25 mg tablet 0.25 mg PO BEDTIME 11/27/20 01/03/22 11/21/21 History zolpidem 5 mg tablet 5 mg PO BEDTIME PRN insomnia 11/27/20 01/03/22 11/21/21 History acetaminophen 325 mg tablet 2 tab PO Q4H PRN Pain 11/22/21 01/03/22 Unknown History gabapentin 300 mg capsule 300 mg PO QID 01/03/22 01/03/22 Unknown History lisinopril 20 mg tablet 20 mg PO BEDTIME 01/03/22 01/03/22 Unknown History Physical Exam Vital Signs: Vital Signs: Last Vital Signs Temp 97.8 F 01/05/22 04:00 Pulse 78 01/05/22 08:03 Resp 13 01/05/22 08:03 BP 155/71 H 01/05/22 08:03 Pulse Ox 98 01/05/22 08:03 O2 Del Method 01/05/22 08:03 BMI result Body Mass Index 29.3 Neuro: Other: alert and awake with normal spontaneity of speech fluency comprehension and slightly anxious affect. Speech is moderately ataxic. Moderate [id number] ataxia is noted. Deep tendon reflexes are absent with flat plantars. Pupils are round reactive to light. Extraocular muscles are intact. Visual josé are full to confrontation. Face is symmetrical. Results Labs CBC & Chem 7: 01/04/22 06:52 01/04/22 06:52 Labs: Noncontrast head CT and MRI of brain were reviewed. There was no acute finding. Moderate to severe diffuse cerebral and cerebellar atrophy and moderate chronic microvascular ischemic changes were noted Assessment and Plan (1) Complex partial seizure: Status: Acute overall clinical picture is suggestive more of complex partial seizure than TIA. Also he has significant amount of risk for this kind of problem. Many years ago he was seen in hospital with the somewhat similar circumstances. Significant degenerative brain disease and microvascular disease put him at risk for seizure disorder. My recommendation is to start Keppra 250 mg twice a day for seizure prevention. As far as vascular disease is concerned, baby aspirin daily can suffice Procedures Date of Service Date of Service: 01/05/22
--- NOTE | 2022-01-05 10:38 | P.DS_ITS ---
DS: Providers Provider Date of Service: 01/05/22 Date of admission: 01/03/22 22:05 Primary care physician: Unknown Physician Consults: 01/03/22 22:04 Consult to Neurology Routine Consulting Provider: [facility] Reason for consultation: TIA DS: Diagnosis Discharge Diagnosis (1) Complex partial seizure: Status: Acute (2) Slurred speech: Status: Acute (3) Fall: Status: Acute DS: Summary Hospital Course Hospital Course: admission note HPI 71-year-old male with past medical history of CVA with residual speech delay, dementia, HTN, HLD, CAD, diabetes mellitus who presents to the hospital with possible TIA.? Patient does answer questions appropriately but has significant delay in speech, and is not a great historian specifically with chronological detail.? According to ED physician, daughter called the patient to morning he was at his baseline with no significant changes, she called again in the afternoon around 17:00 and found him to have significant slurred speech, by the time he arrived to the ED patient symptoms resolved and he was at his baseline in regards to his neurological status.? Patient reports that he has also been having significant balance problems for the past couple of weeks, he has had multiple falls with no loss of consciousness, and no head injury.? He reports no significant increase in his numbness, tingling or weakness in his extremities. Patient otherwise denies any palpitations, no chest pain, no abdominal pain nausea or vomiting, no diarrhea constipation, no urinary symptoms and no lower extremity edema. Labs are significant for WBC count of 4.1, hemoglobin of 12.2, hematocrit 35.3, otherwise unremarkable Imaging including MRI showed no acute intracranial findings, no acute infarcts, there is global cerebral volume loss and there is [id number] chronic blank p.o. angiopathy, chronic petechial microhemorrhages within the pavithra Hospital course The patient was admitted for evaluation of and incident of fall and slurred speech> Evaluated by a CT and MRI of the head which both were negative for any acute findings but MRI showed evidence of global cerebral loss and chronic angiopathy> Evaluated by neurologist who recommended starting Keppra 250 mg twice Daily for possible partial complex seizure> He was evaluated by physical therapy team who recommended short-term hospital physical therapy stay> Patient was discussed about next step after therapy as he would like to move to assisted living rather than going back home as he does not feel he can manage at home anymore by himself> Blood pressure was noted to be mildly elevated> He was resumed on his home medications with a plan to follow his blood pressure as outpatient for 1 week and report readings to PCP for further assessment of hypertension. Start Keppra 250 mg twice Daily Continue aspirin and atorvastatin To do physical therapy monitor your blood pressure for the next week and report readings to PCP for adjustments Of blood pressure medications Time Spent with Patient Time attestation: Total time spent providing and/or coordinating discharge services: Discharge coordination time: Greater than 30 minutes Quality: Safe Use of Opioids Does Pt have an Active Cancer Diagnosis on the Problem List?: No Quality: Stroke Does the patient have a stroke diagnosis?: No Physical Exam Vital Signs: Vital Signs: Last Vital Signs Temp 97.8 F 01/05/22 04:00 Pulse 78 01/05/22 08:03 Resp 13 01/05/22 08:03 BP 155/71 H 01/05/22 08:03 Pulse Ox 98 01/05/22 08:03 O2 Del Method 01/05/22 08:03 BMI result Body Mass Index 29.3 Const: Other: Constitutional : Alert, oriented, not in distress Neck : Normal inspection, Supple Cardiovascular : RRR, no JVP, no lower extremity edema Respiratory : fair bilateral air entry, no crackles, wheezes or rhonchi Gastrointestinal: soft, lax, Normal bowel sounds, Non tender Skin : Warm, Dry Neurological : Alert & oriented x3, slow responses but no slurred speech, mild left-sided weakness more noticed on the lower extremity , CN 2-12 within normal DS: Data Data Completed and Pending Labs on day of discharge: Laboratory Results - last 24 hr 01/04/22 01/04/22 01/04/22 12:11 16:36 21:04 POC Glucose 118 H 130 H 190 H 01/05/22 07:34 POC Glucose 174 H Imaging MRI - head: Radiologist's impression: ITS Impressions Head CT 01/03/22 18:14 IMPRESSION: 1. No intracranial hemorrhage or acute edematous territorial infarct identified. This critical result was discussed with Dr. Barber at 6:21 PM on 01/03/2022 and it was ascertained that the content and urgency of the report was understood at the time of direct communication. Brain MRI 01/03/22 20:05 IMPRESSION: - There are no acute intracranial findings. No acute infarcts. - There is global cerebral volume loss and there is mild to moderate chronic microangiopathy. - Chronic petechial microhemorrhages within the pavithra. Chest X-Ray 01/03/22 20:24 IMPRESSION: No acute pulmonary findings. Discharge Plan Discharge Patient Disposition: er [facility] Discharge Diagnosis: partial complex seizures Slurred speech Falls Referrals: Physician,Unknown J [Primary Care Provider] - 1 Week Discharge Medications: New levetiracetam 250 mg Tablet 30 mg PO BID Qty: 60 0RF Continued atorvastatin 40 mg tablet 40 mg PO BEDTIME metformin 500 mg tablet 500 mg PO BID cyanocobalamin (vitamin B-12) [Vitamin B-12] 1,000 mcg tablet 1,000 mcg PO DAILY risperidone 0.25 mg tablet 0.25 mg PO BEDTIME citalopram 20 mg tablet 20 mg PO DAILY lorazepam 0.5 mg tablet 0.5 mg PO TID PRN (Reason: Anxiety) Label Comments: Takes up to 3 tablets at night Rx Instructions: CAN TAKE UP TO 3 divalproex 500 mg tablet extended release 24 hr 1,000 mg PO BEDTIME omeprazole 20 mg capsule,delayed release(DR/EC) 20 mg PO DAILY zolpidem 5 mg tablet 5 mg PO BEDTIME PRN (Reason: insomnia) acetaminophen 325 mg tablet 2 tab PO Q4H PRN (Reason: Pain) aspirin 81 mg Tablet,Delayed Release (Dr/Ec) 81 mg PO DAILY Qty: 30 0RF lisinopril 20 mg tablet 20 mg PO BEDTIME gabapentin 300 mg capsule 300 mg PO QID Discharge Orders: Discharge Order (Routine); Ordered 01/05/22 Ordered By: Adrienne Cardona Diet: Advance to usual diet Activity on Discharge: As tolerated Stand Alone Forms: Patient Portal Discharge page Care Plan Goals: Read below Health Concerns: Read below Plan of Treatment: Read below Assessment: you were admitted to the hospital for evaluation of incident of fall and slurred speech> Brain images negative for any acute findings> You were evaluated by neurologist who things your symptoms are secondary to partial seizures> Started on seizure medication> Start Keppra 250 mg twice Daily Continue aspirin and atorvastatin To do physical therapy monitor your blood pressure for the next week and report readings to PCP for adjustments Of blood pressure medications
[2022-01-05 13:28] LABS: Glucose, Whole Blood 105 mg/dL (60-115)
--- NOTE | 2022-01-05 13:28 | PC.NURSE ---
Patient to be transferred to [facility] at 3p today via ambulance. Report given to [facility] nurse.
[2022-01-05] MEDS: levETIRAcetam 250 MG TABLET PO (13:45)
== END 2022-01-05 16:45 | disposition skilled nursing facility (03) | DRG 101 ==
LOC: HO.ED 19:36 → HO.EDOVER 22:27
PROVIDERS: Admitting Provider Internal Medicine; Emergency Provider Emergency Medicine; PCP Internal Medicine; Visit Provider Student in an Organized Health Care Education/Training Program
DX: G40.209 Localization-related (focal) (partial) symptomatic epilepsy and epileptic syndromes with complex partial seizures, not intractable, without status epilepticus (principal); E78.5 Hyperlipidemia, unspecified; I10 Essential (primary) hypertension; E11.9 Type 2 diabetes mellitus without complications; R47.81 Slurred speech; R29.6 Repeated falls; Z91.81 History of falling; I69.328 Other speech and language deficits following cerebral infarction; F03.90 Unspecified dementia, unspecified severity, without behavioral disturbance, psychotic disturbance, mood disturbance, and anxiety; G31.89 Other specified degenerative diseases of nervous system; Z20.822 Contact with and (suspected) exposure to COVID-19; Z79.84 Long term (current) use of oral hypoglycemic drugs; Z79.899 Other long term (current) drug therapy
CPT/HCPCS: 36415; 70450; 70551; 71045; 80048; 80061; 82550; 82947; 84484; 85025; 85610; 85730; 87635; 93005; 97162; 99285; J1650